=== PATIENT | female | born 1950 ===

== ENCOUNTER 2019-11-27 11:13 | Emergency (ER) | payer OTHER, SELFPAY ==
[2019-11-27 11:19] VITALS: BP 110/65; PULSE 53; RESP 16; TEMP 36.8; O2SAT 100; BMI 40.3
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
== END 2019-11-27 12:33 | disposition home or self-care (01) ==
LOC: HO.ED 12:24
PROVIDERS: Emergency Provider Internal Medicine; PCP Internal Medicine
DX: S13.9XXA Sprain of joints and ligaments of unspecified parts of neck, initial encounter (principal); M54.2 Cervicalgia; M54.5 Low back pain; V43.52XA Car driver injured in collision with other type car in traffic accident, initial encounter; Y93.9 Activity, unspecified; Y92.410 Unspecified street and highway as the place of occurrence of the external cause
CPT/HCPCS: 99283

== ENCOUNTER 2019-12-07 07:12 | Outpatient (REF) | payer OTHER, SELFPAY ==
--- NOTE | 2019-12-07 07:18 | XR_ITS ---
EXAMINATION: XR CERVICAL SPINE CLINICAL INFORMATION: Neck pain. COMPARISON: None TECHNIQUE: 3 views of the cervical spine were obtained. FINDINGS: There is mild straightening of cervical lordosis. There is loss of C4-C5, C5-C6 disc heights with mild posterior cervical spondylosis. The rest of the disc heights, vertebral heights and alignment is normal. No visible acute fracture, dislocation or lytic process seen. IMPRESSION: Mild degenerative disc changes C4-C5 and C5-C6 disc levels.
== END 2019-12-07 07:13 | disposition home or self-care (01) ==
LOC: HO.XRAY 07:12
PROVIDERS: PCP Internal Medicine; Visit Provider Internal Medicine
DX: M54.2 Cervicalgia (principal)
CPT/HCPCS: 72040

== ENCOUNTER 2019-12-25 06:58 | Outpatient (REF) | payer MEDICARE, SELFPAY ==
[2019-12-25 08:31] LABS: Alanine Aminotransferase 18 U/L (0-31); Albumin Level 3.9 g/dL (3.5-5.0); Alkaline Phosphatase 103 U/L (39-117); Aspartate Amino Transferase 17 U/L (5-31); Bilirubin Direct 0.2 mg/dL (0.0-0.5); Bilirubin Total 0.4 mg/dL (0.0-1.0); Cholesterol 199 mg/dL; HDL Cholesterol 55 mg/dL; LDL Cholesterol Calculated 129 mg/dl; Total Protein 7.2 g/dL (6.5-8.0); Triglycerides 77 mg/dL
== END 2019-12-25 06:59 | disposition home or self-care (01) ==
LOC: HO.LAB 06:58
PROVIDERS: Visit Provider Internal Medicine
DX: F34.1 Dysthymic disorder (principal); E78.00 Pure hypercholesterolemia, unspecified; I73.9 Peripheral vascular disease, unspecified; Z85.3 Personal history of malignant neoplasm of breast
CPT/HCPCS: 80061; 80076

== ENCOUNTER 2019-12-29 06:27 | Day surgery (SDC) | payer MEDICARE, SELFPAY ==
[2019-12-23 10:36] VITALS: BMI 41.9
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
[2019-12-29 07:09] VITALS: BP 131/64; PULSE 56; RESP 16; TEMP 36.2; O2SAT 98
[2019-12-29] MEDS: Lactated Ringers 1,000 ML 100 ML IVCONT (07:12)
--- NOTE | 2019-12-29 07:43 | MHC.SHP ---
Pre-Procedural Eval Section B Chief Complaint: POLYPS OF COLON Details of Present Illness: Colon cancer screening no changes clinically since preop Relevant Family History (Specify if Yes): No Relevant Social History: None Present Medications: see Short Stay Collaborative assessment Medical History: Significant History (ARIAS, Obesity, Sickle trait) History of Previous Operations: No relevant previous surgery Allergies: Allergies Allergy/AdvReac Type Severity Reaction Status Date / Time lactose Allergy Intermediate Flatulence Verified 12/23/19 10:44 Review of Systems Sugical H&P ROS: Negative: Constitution, Cardiovascular, Respiratory and Gastrointestinal Exam Surgical H&P Exam: Normal: HEENT, Normal: Heart and Normal: Lungs and Significant Findings: Abdomen (central obesity) Plan Diagnosis/Plan: Unchanged Patient has been examined and remains a candidate for the planned procedure--YES
--- NOTE | 2019-12-29 08:12 | PM.PROC ---
Brief Operative Note Date of procedure: 12/29/19 Pre-op diagnosis: Colon cancer screening Post-op diagnosis: other (Colon polyp diminutive) Procedure: COLONOSCOPY WITH EXCISIONAL POLYPECTOMY Anesthesia: MAC (Andrew RICHTER CRNA) Surgeon: Serena Okeefe Estimated blood loss (mL): 5 Pathology: other (POLYP @ 60 CM) Condition: stable Disposition: PACU
[2019-12-29 08:15] VITALS: BP 90/31; PULSE 58; RESP 20; TEMP 36.2; O2SAT 97
[2019-12-29 08:30] VITALS: BP 122/54; PULSE 66; RESP 20; O2SAT 100
[2019-12-29 08:40] VITALS: BP 126/56; PULSE 52; RESP 20; O2SAT 100
--- NOTE | 2019-12-29 08:55 | HO.POSTANES ---
Post Anesthesia Evaluation Post Anesthesia Evaluation Vital Signs: Vital Signs Temp Pulse Resp BP Pulse Ox 12/29/19 08:40 97.1 F 52 20 126/56 L 100 12/29/19 08:30 66 20 122/54 L 100 12/29/19 08:15 97.1 F 58 20 90/31 L 97 12/29/19 07:09 97.1 F 56 16 131/64 98 Anesthesia: Monitored Mental Status: Awake Pain Control: Satisfactory Nausea/Vomiting: None Hydration: Adequate Anesthesia-Related Issues: No Anes. Related Issues
--- NOTE | 2019-12-29 09:23 | OP_ITS ---
SURGEON: Serena Okeefe MD PREOPERATIVE DIAGNOSIS: Colon cancer screening. POSTOPERATIVE DIAGNOSIS: Colonic polyp, diminutive. PROCEDURE PERFORMED: Colonoscopy with excisional polypectomy using cold biopsy forceps. ESTIMATED BLOOD LOSS: Less than 5 mL. COMPLICATIONS: No complications. ANESTHESIA: Monitored. ANESTHESIOLOGIST: Andrew De Santiago CRNA.Andrew De Santiago CRNA. ASSISTANTS: No dental assistant instructor. SPECIMENS: Specimens removed, polyp 60 cm. GAS WELDER APPRENTICE: Dr. Okeefe. CONDITION: Postop, stable. FINDINGS: Digital rectal exam revealed no significant sphincter tone was adequate. Video colonoscope was introduced without difficulty. It was navigated into the rectosigmoid area. This area was somewhat redundant, slow progress through. Ultimately, the colon opened and the scope was able to traverse to the level of the distal transverse colon. At that point, there was looping redundancy. The scope was brought back to a level of around 60 cm where in I identified a polyp that was removed excisionally with a cold biopsy forceps. Extrinsic abdominal pressure was applied, facilitated movement through transverse, ascending colon down into the cecal cap. Appendiceal orifice was seen. Ileocecal valve was well seen. No mucosal abnormalities were appreciated in this area. Slow withdrawal of scope. Good rotational views. No additional lesions were seen in the region of the rectosigmoid, I changed from CO2 insufflation to air to get better distention in order to slowly withdraw through the suggested area of prolapse in the rectosigmoid. Anorectal verge was clear. PLAN AND CURRENT RECOMMENDATIONS: Repeat asymptomatic screening in this patient will be 5-7 years depending on histology of the polyp. GRAFT OR IMPLANTS: None. Serena Okeefe MD MEN/MODL / [id number]
== END 2019-12-29 09:17 | disposition home or self-care (01) ==
PROVIDERS: PCP Internal Medicine; Visit Provider Internal Medicine Gastroenterology
PROC: 0DJD8ZZ Inspection of Lower Intestinal Tract, Via Natural or Artificial Opening Endoscopic (ICD-10-PCS; CPT 45378; principal; 2019-12-29 07:30)
DX: Z12.11 Encounter for screening for malignant neoplasm of colon (principal); D12.4 Benign neoplasm of descending colon; F32.89 Other specified depressive episodes; G47.30 Sleep apnea, unspecified; M85.80 Other specified disorders of bone density and structure, unspecified site; I73.9 Peripheral vascular disease, unspecified; Z85.3 Personal history of malignant neoplasm of breast; Z92.3 Personal history of irradiation; E73.9 Lactose intolerance, unspecified; Z79.899 Other long term (current) drug therapy
CPT/HCPCS: 45380; 88305; J2370

== ENCOUNTER → 2020-02-03 11:11 | Outpatient (BNVA) | payer MEDICARE, SELFPAY | PROVIDERS: PCP Internal Medicine; Visit Provider Physician Assistant | DX: Z13.89 Encounter for screening for other disorder (principal) | CPT/HCPCS: Q3014 ==

== ENCOUNTER 2020-07-27 07:19 | Emergency (ER) | payer MEDICARE, SELFPAY ==
--- NOTE | ~2020-07-27 | XR_ITS ---
EXAMINATION: XR LUMBOSACRAL SPINE CLINICAL INFORMATION: Fall COMPARISON: Previous x-ray November 2017 TECHNIQUE: Three views of the lumbosacral spine. FINDINGS: Bone alignment is normal. No fracture or dislocation is seen. There is mild disc space narrowing at L2-L3 the L5-S1. There is lower lumbar spine facet arthritis. XR/XR lumbar spine 2-3V IMPRESSION: Degenerative changes. No fracture seen.
--- NOTE | ~2020-07-27 | CT_ITS ---
EXAMINATION: CT BRAIN, CT CERVICAL SPINE AND CT CHEST WITHOUT CONTRAST. CLINICAL INFORMATION: Fall. COMPARISON: None TECHNIQUE: 5 mm thin axial and reformatted 2 mm thin sagittal and coronal images of brain were obtained. Axial 3 mm thin and reformatted 2 mm thin sagittal and coronal images of cervical spine were obtained. Lastly axial 5 mm thin and reformatted 3 mm thin sagittal and coronal images of chest were obtained without contrast. DLP 1962 FINDINGS: BRAIN: There is no acute intra-axial, extra-axial bleed, masses, collection or midline shift. There is no acute infarction in evolution. There is no edema. The lateral ventricles are symmetrical in size and configuration without enlargement. Bone windows reveal no calvarial abnormality. There is no scalp soft tissue abnormality. Bilateral paranasal sinuses and mastoid air cells are well-aerated. CERVICAL SPINE: There is mild straightening of cervical lordosis. The vertebral heights and alignment is normal. There is loss of C5-C6 and C6-C7 disc heights with moderate ventral and posterior spondylosis the craniovertebral junction and the C1-C2 alignment is normal. There is no visible acute fracture, dislocation or subluxation seen. The prevertebral and paravertebral soft tissues are normal. There is left C3-C4, right C4-C5 moderate facet joint arthropathy. No visible acute fracture, dislocation or subluxation seen. The prevertebral and paravertebral soft tissues are normal. The thyroid lobes are symmetrical and unremarkable. Central trachea and the bronchi are widely patent. The lung apices are clear except for a prominent bilateral full and mild apical pleural thickening. CHEST: The lungs are well-expanded and clear of acute pneumonic consolidation. No contusion, mass or pulmonary nodules seen. There is minimal atelectatic changes in both lung bases. There is no pleural effusion or thickening. The heart size and great vessels are normal caliber. There is no pericardial effusion. The central trachea and bronchi are widely patent. No abnormal size mediastinal hilar lymph nodes seen. There is no abnormal axillary lymph nodes or mass or chest wall hematoma. There are small calcifications 1 small shayy along the left anterior chest wall from previous intervention. Correlate clinically. Imaging through the upper abdomen reveals visualized liver, spleen, bilateral adrenal glands, pancreas and gallbladder to be unremarkable. Bone windows reveal no evidence of fracture or bony abnormality. There is mild spondylosis throughout dorsal spine. CT/CT cervical spine wo con IMPRESSION: No acute intracranial process seen. There is no visible acute fracture or dislocation. Mild straightening of cervical lordosis likely spasm. There are degenerative disc changes facet joint arthropathy as described above. There is no lung contusion or consolidation. Minimal atelectatic changes seen in both lung bases. There is mild spondylosis dorsal spine.
[2020-07-27 07:49] VITALS: BP 178/79; PULSE 62; RESP 18; TEMP 36.8; O2SAT 97; BMI 41.1
--- NOTE | 2020-07-27 07:58 | ED.FALL ---
HPI - Fall General Chief Complaint: Fall Stated Complaint: fall, chest, neck pain Time Seen by Provider: 07/27/20 07:58 Source: patient Mode of arrival: ambulatory Limitations: no limitations History of Present Illness MD complaint: fall Onset (ago): minute(s) Fall from: standing and down stairs (#) (10 step by landing) Fall witnessed: no Place fall occurred: home Loss of consciousness: none Prolonged down time: no Symptoms prior to fall: none Context: tripped/slipped Location of injury: neck, chest and back Related Data Home Medications Medication Instructions Recorded Confirmed calcium carbonate-vitamin D3 600 1 tab PO DAILY 12/17/19 02/03/20 mg (1,500 mg)-800 unit tablet cholecalciferol (vitamin D3) 50 50 mcg PO DAILY 12/17/19 02/03/20 mcg (2,000 unit) capsule glucosamine HCl 500 mg tablet 500 mg PO BID 12/17/19 02/03/20 lactase 9,000 unit tablet 9,000 unit PO QID PRN 12/17/19 02/03/20 multivitamin 1 tab PO DAILY 12/17/19 02/03/20 ferrous sulfate 325 mg PO DAILY 12/23/19 02/03/20 Previous Rx's Medication Instructions Recorded ibuprofen 600 mg PO Q8H PRN #30 tab 11/27/19 citalopram 10 mg tablet 10 mg PO DAILY #90 tab 07/04/20 simvastatin 10 mg tablet 10 mg PO BEDTIME #90 tab 07/04/20 cyclobenzaprine 10 mg PO TID PRN #14 tab 07/27/20 ibuprofen 600 mg PO Q6H PRN #30 tab 07/27/20 lidocaine 1 patch TOPICAL DAILY PRN #10 ea 07/27/20 Allergies Allergy/AdvReac Type Severity Reaction Status Date / Time lactose Allergy Intermediate Flatulence Verified 12/23/19 10:44 Review of Systems Review of Systems: Constitutional : No Fever, No Chills ENT/Mouth : No Ear Pain, No Hoarseness, No sore throat, pos neck pain Eyes: No Eye Pain, No Swelling, No Redness, No Foreign Body Cardiovascular : No Chest Pain, No SOB, rib pain Respiratory : No Cough, No Dyspnea Gastrointestinal : No Nausea, No Vomiting, No Diarrhea, No abdominal Pain Genitourinary : No Dysuria, No Hematuria Musculoskeletal : positive joint pain, No Myalgias, No Joint Swelling Skin : No Skin lacerations, No rash Neuro : No Weakness, No Numbness, No Loss of Consciousness, No Dizziness, No Headache Psych : No Anxiety/Panic, No Depression Heme/Lymph: no easy bruising, no Lymphadenopathy Endocrine : No Polyuria, No Polydipsia All other systems reviewed and are negative [facility] Past Medical History Attestation statement: The following information was validated with the patient. Medical History Depression Dysthymia Elevated cholesterol History of breast cancer Hx of cardiac murmur Hx of radiation therapy Hx of sickle cell trait Hypercholesterolemia Incomplete emptying of bladder Lab test negative for COVID-19 virus Obesity Osteopenia Peripheral vascular disease Sleep apnea Tubular adenoma Wrist fracture, right Surgical History H/O breast reconstruction H/O colonoscopy H/O foot surgery History of cataract surgery History of left mastectomy Family History Family History Father Multiple myeloma Mother Hypertension Brain aneurysm Social History Social History Advance Directives: Yes Advance Directives Information Provided: Yes Advance Directives on File: No Physical Exam Vital Signs: Vital Signs: Last Vital Signs Temp 98.3 F 07/27/20 07:49 Pulse 62 07/27/20 07:49 Resp 18 07/27/20 07:49 BP 178/79 H 07/27/20 07:49 Pulse Ox 97 07/27/20 07:49 Body Mass Index 41.1 Appearance: Alert. Oriented X3. No acute distress. Eyes: Pupils equal, round and reactive to light. ENT: Pharynx normal. Neck: ttp in the midline no step offs CVS: Normal heart rate and rhythm. Pulses normal. Chest: ttp along sternum Respiratory: No respiratory distress. Breath sounds normal. Abdomen: Soft and nontender. Back: mild ttp no step offs lumbar spine mid Skin: Skin warm and dry. Normal skin color. Normal skin turgor. Extremities: No lower extremity edema. No calf ttp Neuro: Oriented X 3. No motor deficit. No sensory deficit. Course Course Course Narrative: negative workup no fractures, GCS 15, refrisk negative, NV intact, stable for DC MDM - Fall MDM Narrative Medical decision making narrative: 69 yo female with mechanical fall down 10 steps by landing - no LOC, c/o neck and anterior chest wall pain/lumbar pain, at this time NV intact will need CT head/cspine for pain and mechanism, CT chest for sternum and rib fractures, lumbar plain films, abdomen is soft and benign, dispo per results and findings. Discharge Plan Discharge Clinical Impression: Strain of fascia of lower back Chest wall muscle strain Qualifiers: Encounter type: initial encounter Qualified Code(s): S29.011A - Strain of muscle and tendon of front wall of thorax, initial encounter Acute strain of neck muscle Qualifiers: Encounter type: initial encounter Qualified Code(s): S16.1XXA - Strain of muscle, fascia and tendon at neck level, initial encounter Patient Disposition: Home, Self-Care Instructions: Cervical Strain (ED), Low Back Strain (ED) Additional Instructions: return to ED for any worsening symptoms or concerns Prescriptions: New cyclobenzaprine 10 mg tablet 10 mg PO TID PRN (Reason: muscle spasm) Qty: 14 RF: 0 lidocaine 4 % adhesive patch,medicated 1 patch topical DAILY PRN (Reason: pain) Qty: 10 RF: 0 ibuprofen 600 mg tablet 600 mg PO Q6H PRN (Reason: pain) Qty: 30 RF: 0 No Action citalopram 10 mg tablet 10 mg PO DAILY Qty: 90 RF: 1 simvastatin 10 mg tablet 10 mg PO BEDTIME Qty: 90 RF: 1 ferrous sulfate 325 mg (65 mg iron) Tablet 325 mg PO DAILY RF: 0 ibuprofen 600 mg tablet 600 mg PO Q8H PRN (Reason: pain) Qty: 30 RF: 0 Hold Instructions: Resume on 01/05/20. noASA orNSAIAs for 1 week Lactase Fast Acting 9,000 unit tablet 9,000 unit PO QID PRN (Reason: Gastrointestinal Spasms Or Cramping) RF: 0 multivitamin Tablet 1 tab PO DAILY RF: 0 calcium carbonate-vitamin D3 600 mg(1,500mg) -800 unit tablet 1 tab PO DAILY RF: 0 glucosamine HCl 500 mg tablet 500 mg PO BID RF: 0 Hold Instructions: Resume on 01/05/20. cholecalciferol (vitamin D3) 50 mcg (2,000 unit) capsule 50 mcg PO DAILY RF: 0 Referrals: Po,Ladiver O, MD [Primary Care Provider] - 2 days (if not better) Stand Alone Forms: Work/School Release
[2020-07-27] MEDS: Cyclobenzaprine HCl 10 MG TABLET PO (08:07)
[2020-07-27] MEDS: HYDROcodone Bit/Acetam 5/325 TABLET 1 TAB PO (08:07)
== END 2020-07-27 12:16 | disposition home or self-care (01) ==
PROVIDERS: Emergency Provider Emergency Medicine; PCP Internal Medicine
DX: S39.012A Strain of muscle, fascia and tendon of lower back, initial encounter (principal); S29.011A Strain of muscle and tendon of front wall of thorax, initial encounter; W10.8XXA Fall (on) (from) other stairs and steps, initial encounter; E78.00 Pure hypercholesterolemia, unspecified; Y93.89 Activity, other specified; Y92.9 Unspecified place or not applicable; Y99.9 Unspecified external cause status; Z85.3 Personal history of malignant neoplasm of breast
CPT/HCPCS: 70450; 71250; 72100; 72125; 99284

== ENCOUNTER 2020-12-22 06:30 | Outpatient (REF) | payer MEDICARE, SELFPAY ==
[2020-12-22 06:37] LABS: MANUAL DIFF FLAG NO
[2020-12-22 07:20] LABS: Basophils Percent Auto 0.2 % (0-2); Eosinophils Percent Auto 0.6 % (0-4); Hematocrit 37.2 % (37.0-47.0); Hemoglobin 12.4 g/dl (12.0-16.0); Imm Gran Abs Auto 0.01 X10*3/uL (0.00-0.03); Imm Gran Pct Auto 0.2 % (0.0-0.4); Lymphocytes Absolute Auto 1.1 X10*3/uL (1.2-4.9); Lymphocytes Percent Auto 20.6 % (20-40); Mean Corpuscular HGB Conc 33.3 g/dl (31.0-35.0); Mean Corpuscular Hemoglobin 26.8 pg (27.0-33.0); Mean Corpuscular Volume 80.5 fL (80.0-98.0); Monocytes Absolute Auto 0.5 X10*3/uL (0.1-1.2); Neutrophils Absolute Auto 3.72 x10*3/uL (2.0-8.3); Neutrophils Percent Auto 69.4 % (45-73); Platelet Count 290 X10*3/uL (160-400); Red Blood Count 4.62 X10*6/uL (4.20-5.50); Red Cell Distribution Width 14.6 % (11.0-16.0); White Blood Count 5.4 X10*3/uL (4.8-10.8)
[2020-12-22 07:52] LABS: Alanine Aminotransferase 11 U/L (0-31); Albumin Level 3.8 g/dL (3.5-5.0); Alkaline Phosphatase 92 U/L (39-117); Anion Gap 12 (12-20); Aspartate Amino Transferase 15 U/L (5-31); Bilirubin Total 0.4 mg/dL (0.0-1.0); Blood Urea Nitrogen 11 mg/dL (9-16); Carbon Dioxide 24 mmol/L (22-29); Chloride 103 mmol/L (96-108); Cholesterol 199 mg/dL; Estimated Glomerular Filt Rate 60; Glucose Random 102 mg/dL (60-115); HDL Cholesterol 53 mg/dL; LDL Cholesterol Calculated 132 mg/dl; Potassium 3.8 mmol/L (3.3-5.1); Sodium 135 mmol/L (135-145); Total Protein 7.4 g/dL (6.5-8.0); Triglycerides 74 mg/dL
[2020-12-22 08:15] LABS: Free T4 (Free Thyroxine) 0.84 ng/dL (0.71-1.85); Thyroid Stimulating Hormone 1.24 uIU/mL (0.32-4.0); Vitamin D 25-OH Total 41.3 ng/mL (>30)
[2020-12-22 08:44] LABS: Folate 17.2 ng/mL (> or = 4.0); Vitamin B12 457 pg/mL (200-900)
== END 2020-12-22 06:31 | disposition home or self-care (01) ==
LOC: HO.LAB 06:30
PROVIDERS: PCP Internal Medicine; Visit Provider Internal Medicine
DX: E78.00 Pure hypercholesterolemia, unspecified (principal)
CPT/HCPCS: 36415; 80053; 80061; 82306; 82607; 82746; 84439; 84443; 85025

== ENCOUNTER 2021-02-07 09:00 | Outpatient (RCR) | payer MEDICARE, SELFPAY ==
--- NOTE | 2021-03-24 09:44 | MHC.PT.DC ---
[facility] [place] Office [place] [facility] [place] Office [address] James Bernal [address] [phone] F: [phone] F: [phone] F: [phone] F: [phone] Physical Therapy Discharge Report Diagnosis: LOW BACK PAIN,CERVICALGIA Date of Surgery: DOI July 2020 Date of Evaluation: 01/02/21 Date of Discharge: 03/24/21 Treatments to Date: 7 Cancellations to Date: No Shows to Date: Discharge Status: Independent with HEP Patient Elected to Stop Discharge Summary: Pt LAST SEEN ON 02/07/21. PER ASSESSMENT BY HOLLI IBARRA HAMMER FITTER :'PROGRESSING WITH EXERCISE PROGRAM, good form today. Improved posture awareness noted.' Pt THEN CANCELLED HER LAST APPT ON 02/09/21 WITHOUT FURTHER SCHEDULING Electronically signed by: LUPE BRADLEY PT Please sign and return to therapist. Thank you for your referral.
== END 2021-03-24 09:44 | disposition home or self-care (01) ==
LOC: HO.PT 09:00
PROVIDERS: PCP Internal Medicine; Visit Provider Internal Medicine
DX: M54.50 Low back pain, unspecified (principal); M54.2 Cervicalgia; W19.XXXD Unspecified fall, subsequent encounter
CPT/HCPCS: 97110; 97140; 97161; 97535

== ENCOUNTER 2021-03-31 06:28 | Outpatient (REF) | payer MEDICARE, SELFPAY ==
[2021-03-31 07:34] LABS: Estimated Average Glucose 120 mg/dL; Hemoglobin A1c % 5.8 %
[2021-03-31 07:47] LABS: Alanine Aminotransferase 13 U/L (0-31); Albumin Level 3.9 g/dL (3.5-5.0); Alkaline Phosphatase 94 U/L (39-117); Anion Gap 10 (12-20); Aspartate Amino Transferase 15 U/L (5-31); Bilirubin Total 0.6 mg/dL (0.0-1.0); Blood Urea Nitrogen 14 mg/dL (9-16); Calcium 9.6 mg/dL (8.4-10.2); Carbon Dioxide 29 mmol/L (22-29); Chloride 103 mmol/L (96-108); Cholesterol 185 mg/dL; Estimated Glomerular Filt Rate > 60; Glucose Random 92 mg/dL (60-115); HDL Cholesterol 47 mg/dL; LDL Cholesterol Calculated 122 mg/dl; Potassium 4.3 mmol/L (3.3-5.1); Sodium 138 mmol/L (135-145); Total Protein 7.4 g/dL (6.5-8.0); Triglycerides 81 mg/dL
[2021-03-31 08:08] LABS: Thyroid Stimulating Hormone 2.34 uIU/mL (0.32-4.0)
== END 2021-03-31 06:29 | disposition home or self-care (01) ==
LOC: HO.LAB 06:28
PROVIDERS: PCP Internal Medicine; Visit Provider Internal Medicine
DX: E78.00 Pure hypercholesterolemia, unspecified (principal)
CPT/HCPCS: 36415; 80053; 80061; 83036; 84443

== ENCOUNTER 2021-05-19 12:01 | Outpatient (REF) | payer MEDICARE, SELFPAY ==
[2021-05-19 12:42] LABS: COVID-19 Test Negative (Negative)
== END 2021-05-19 12:02 | disposition home or self-care (01) ==
LOC: HO.LAB 12:01
PROVIDERS: Visit Provider Internal Medicine
DX: Z20.822 Contact with and (suspected) exposure to COVID-19 (principal)
CPT/HCPCS: 87635; C9803

== ENCOUNTER → 2021-06-06 14:36 | Outpatient (BNVA) | payer MEDICARE, SELFPAY | PROVIDERS: PCP Internal Medicine; Visit Provider Urology | DX: N31.9 Neuromuscular dysfunction of bladder, unspecified (principal); R33.9 Retention of urine, unspecified | CPT/HCPCS: 51798; 99212 ==

== ENCOUNTER → 2021-08-17 10:54 | Outpatient (BNVA) | payer MEDICARE, SELFPAY | PROVIDERS: PCP Internal Medicine; Visit Provider Urology | DX: R33.9 Retention of urine, unspecified (principal) | CPT/HCPCS: Q3014 ==

== ENCOUNTER 2021-09-28 14:05 | Outpatient (REF) | payer MEDICARE, SELFPAY ==
--- NOTE | ~2021-09-28 | CT_ITS ---
EXAMINATION: CT HEAD WITHOUT CONTRAST CLINICAL INFORMATION: Fall. COMPARISON: None. TECHNIQUE: Contiguous axial imaging was performed from the skull base to vertex without intravenous administration of contrast. This CT examination was performed using dose optimization techniques as appropriate, variously including the following: *Automated exposure control *Adjustment of mA and/or kV according to patient size (this includes techniques or standardized protocols for targeted exams where dose is matched to indication/reason for exam; i.e. extremities or head) *Use of iterative reconstruction technique DLP: 943 mGy-cm FINDINGS: There is no evidence of acute intracranial hemorrhage or territorial infarction. No abnormal mass effect or midline shift is seen. Mccoy to white matter differentiation is well preserved. No extra-axial fluid collections are identified. The ventricles are normal in size. There is no abnormal attenuation within the brain parenchyma. The osseous structures and soft tissues are normal. The mastoid air cells and visualized portions of the paranasal sinuses are well aerated. CT/CT head/brain wo con IMPRESSION: No acute intracranial process is seen.
== END 2021-09-28 14:06 | disposition home or self-care (01) ==
LOC: HO.CT 14:05
PROVIDERS: Visit Provider Nurse Practitioner Family
DX: R22.0 Localized swelling, mass and lump, head (principal); W19.XXXA Unspecified fall, initial encounter
CPT/HCPCS: 70450

== ENCOUNTER 2021-10-02 06:25 | Outpatient (REF) | payer MEDICARE, SELFPAY ==
[2021-10-02 08:53] LABS: Anion Gap 16 (12-20); Blood Urea Nitrogen 12 mg/dL (9-16); Calcium 8.8 mg/dL (8.4-10.2); Carbon Dioxide 24 mmol/L (22-29); Chloride 103 mmol/L (96-108); Estimated Glomerular Filt Rate > 60; Glucose Fasting 85 mg/dL (60-99); Potassium 4.5 mmol/L (3.3-5.1); Sodium 138 mmol/L (135-145)
== END 2021-10-02 06:26 | disposition home or self-care (01) ==
LOC: HO.LAB 06:25
PROVIDERS: PCP Internal Medicine; Visit Provider Nurse Practitioner Family
DX: R73.02 Impaired glucose tolerance (oral) (principal)
CPT/HCPCS: 36415; 80048

== ENCOUNTER → 2021-10-03 15:34 | Outpatient (REF) | payer MEDICARE, SELFPAY ==
--- NOTE | 2021-10-03 15:39 | ECG_ITS ---
Test Reason : syncope Blood Pressure : / mmHG Vent. Rate : 052 BPM Atrial Rate : 052 BPM P-R Int : 156 ms QRS Dur : 080 ms QT Int : 422 ms P-R-T Axes : 045 003 055 degrees QTc Int : 392 ms Sinus bradycardia Otherwise normal ECG When compared with ECG of 29-AUG-2017 15:47, No significant change was found Referred By: Alejandrina Trevizo Electronically Signed By:GODWNI MERCHANT
== END ==
LOC: HO.CARD 15:34
PROVIDERS: PCP Nurse Practitioner Family; Visit Provider Nurse Practitioner Family
DX: R29.6 Repeated falls (principal)
CPT/HCPCS: 93005

== ENCOUNTER 2021-10-04 09:09 | Outpatient (REF) | payer MEDICARE, SELFPAY ==
--- NOTE | ~2021-10-04 | MM_ITS ---
EXAMINATION: BONE DENSITOMETRY CLINICAL INDICATION: Menopause. COMPARISON: Previous BD dated 05/27/2015 and baseline BD dated 01/08/2008. TECHNIQUE: Using a [employer]! DXA System (software version: 13.1) manufactured by [employer], dual-energy x-ray absorptiometry was performed of the lumbar spine and left hip. The images are of good technical quality. Summary results are attached. FINDINGS: AP SPINE L1-L4: Current: BMD 1.324 g/cm2, Z-score 1.0, T-score 1.2, normal, 6.9% increase from previous, 7.4% increase from baseline (<5% change is not significant). Prior: BMD 1.238 g/cm2. Baseline: BMD 1.233 g/cm2. LEFT FEMUR, NECK: Current: BMD 0.961 g/cm2, Z-score -0.6, T-score -0.6, normal. Prior: BMD 1.002 g/cm2. Baseline: BMD 1.093 g/cm2. LEFT FEMUR, TOTAL: Current: BMD 0.988 g/cm2, Z-score -0.6, T-score -0.2, normal, 0.8% increase from previous, 8.9% decrease from baseline (<5% change is not significant). Prior: BMD 0.980 g/cm2. Baseline: BMD 1.084 g/cm2. IDENTIFIED RISK FACTORS: Menopause, recurrent falls. HISTORY OF FRACTURE: None listed. MEDICATIONS: Vitamin D. MM/XR DEXA axial skeleton IMPRESSION: 1. DIAGNOSIS: Normal bone density based on the lowest T-score value of -0.6 in the femoral neck applying World Health Organization criteria. 2. 10-YEAR FRACTURE RISK PREDICTION, FRAX: Major osteoporotic fracture (clinical spine, forearm, hip or shoulder) 3.0%. Hip fracture 0.2%. 3. Treatment Recommendations: NOF guidelines recommend consideration for treatment in postmenopausal women and men age 50 and older presenting with the following: -A hip or vertebral (clinical or morphometric) fracture. -T-score less than or equal to -2.5 at the femoral neck or spine after appropriate evaluation to exclude secondary causes. -Low bone mass at the hip or spine and a 10-year fracture probability by FRAX of greater than or equal to 3% for hip fracture or greater than or equal to 20% for major osteoporotic fracture based on the [place] adapted WHO algorithm. 4. Other Recommendations: All treatment decisions require clinical judgment and consideration of individual patient factors, including patient preferences, comorbidities, previous drug use, risk factors not captured in the FRAX model (e.g. frailty, falls, vitamin D deficiency, increased bone turnover, interval significant decline in bone density) and possible under or overestimation of fracture risk by FRAX. FUTURE SCAN RECOMMENDATION: People with diagnosed cases of osteoporosis or at high risk for fracture should have regular bone mineral density tests. For patients eligible for Medicare, routine testing is allowed once every 2 years. The testing frequency can be increased to one year for patients who have rapidly progressing disease, those who are receiving or discontinuing medical therapy to restore bone mass, or have additional risk factors.
== END 2021-10-04 09:10 | disposition home or self-care (01) ==
LOC: HO.MAMMO 09:09
PROVIDERS: Visit Provider Nurse Practitioner Family
DX: Z13.820 Encounter for screening for osteoporosis (principal); Z78.0 Asymptomatic menopausal state
CPT/HCPCS: 77080

== ENCOUNTER 2021-10-17 10:11 | Outpatient (REF) | payer MEDICARE, SELFPAY ==
[2021-10-17 10:54] LABS: MANUAL DIFF FLAG NO
[2021-10-17 11:17] LABS: Basophils Percent Auto 0.4 % (0-2); Eosinophils Absolute Auto 0.1 X10*3/uL (0.0-0.4); Eosinophils Percent Auto 1.1 % (0-4); Hematocrit 37.5 % (37.0-47.0); Hemoglobin 12.3 g/dl (12.0-16.0); Imm Gran Abs Auto 0.02 X10*3/uL (0.00-0.03); Imm Gran Pct Auto 0.4 % (0.0-0.4); Lymphocytes Absolute Auto 1.3 X10*3/uL (1.2-4.9); Lymphocytes Percent Auto 22.5 % (20-40); Mean Corpuscular HGB Conc 32.8 g/dl (31.0-35.0); Mean Corpuscular Hemoglobin 26.7 pg (27.0-33.0); Mean Corpuscular Volume 81.5 fL (80.0-98.0); Mean Platelet Volume 10.6 fL (9.4-12.3); Monocytes Absolute Auto 0.4 X10*3/uL (0.1-1.2); Monocytes Percent Auto 7.5 % (2-11); Neutrophils Absolute Auto 3.8 x10*3/uL (2.0-8.3); Neutrophils Percent Auto 68.1 % (45-73); Platelet Count 315 X10*3/uL (160-400); Red Cell Distribution Width 14.1 % (11.0-16.0); White Blood Count 5.6 X10*3/uL (4.8-10.8)
[2021-10-17 12:41] LABS: Free T4 (Free Thyroxine) 0.85 ng/dL (0.71-1.85); Thyroid Stimulating Hormone 1.68 uIU/mL (0.32-4.0)
== END 2021-10-17 10:12 | disposition home or self-care (01) ==
LOC: HO.LAB 10:11
PROVIDERS: PCP Internal Medicine; Visit Provider Internal Medicine
DX: R55 Syncope and collapse (principal)
CPT/HCPCS: 36415; 84439; 84443; 85025

== ENCOUNTER 2021-10-18 14:19 | Outpatient (REF) | payer MEDICARE, SELFPAY ==
[2021-10-18 14:31] LABS: Appearance Urine Cloudy; Color Urine Yellow; Glucose Urine UA Negative (Negative); Leukocyte Esterase Urine Large (3+) (Negative); Nitrite Urine Positive (Negative); Urine Blood Negative (Negative); Urine Ketones Negative (Negative); Urine Protein Negative (Neg-Trace)
[2021-10-18 14:54] LABS: Bacteria Urine 4+ (None Seen); Hyaline Casts Urine 0-2 /LPF (0-2); RBC Urine 0-2 /HPF (0-2); UACC Culture Trigger YES; WBC Urine >50 /HPF (0-5)
== END 2021-10-18 14:20 | disposition home or self-care (01) ==
LOC: HO.LNP 14:19
PROVIDERS: Visit Provider Internal Medicine
DX: R55 Syncope and collapse (principal)
CPT/HCPCS: 81001; 87086; 87088; 87186

== ENCOUNTER 2021-11-16 07:48 | Outpatient (REF) | payer MEDICARE, SELFPAY ==
[2021-11-16 09:47] LABS: Appearance Urine Clear; Color Urine Yellow; Glucose Urine UA Negative (Negative); Leukocyte Esterase Urine Small (1+) (Negative); Nitrite Urine Negative (Negative); UMIC TRIGGER UA YES; Urine Blood Negative (Negative); Urine Ketones Negative (Negative); Urine Protein Negative (Neg-Trace)
[2021-11-16 09:50] LABS: Bacteria Urine None Seen (None Seen); Hyaline Casts Urine 0-2 /LPF (0-2); RBC Urine 0-2 /HPF (0-2); Squamous Epithelial Cell Urine 0-2 /HPF (0-2)
== END 2021-11-16 07:49 | disposition home or self-care (01) ==
LOC: HO.LAB 07:48
PROVIDERS: PCP Internal Medicine; Visit Provider Internal Medicine
DX: R55 Syncope and collapse (principal)
CPT/HCPCS: 81001

== ENCOUNTER → 2021-11-17 07:29 | Outpatient (REF) | payer MEDICARE, SELFPAY ==
--- NOTE | 2021-11-17 07:35 | HM_ITS ---
* Total monitoring time 3 days and 2 hours. * Underlying rhythm is sinus. Average rate 53/Min. Range 41 to 79/Min. * About 80% the time, rate less than 60/Min. * Rare supraventricular and ventricular ectopy. * No sustained arrhythmias or pauses * Symptoms in patient diary associated with sinus bradycardia, artifact. MTDD
--- NOTE | 2021-11-17 07:35 | CA_ITS ---
Transthoracic Echocardiogram Patient (Last, First, Middle): Marcella Pinzon, Gender: Female Date of : 1950 Age: 71 Procedure Date: 11/17/2021 Procedure Type: Transthoracic Echocardiogram Location: OP Height: 167.64 cm Weight: 117.94 kg BSA: 2.24 m2 Heart Rate: 45 bpm BP: 120 / 80 mmHg Newspaper Carrier: TO Referring MD: Elidia Chadwick MD Symptoms: R55 - Syncope and collapse Study Quality: Fair Conclusions: - Normal left ventricular size and systolic function. There is mildly increased left ventricular wall thickness. The visually estimated ejection fraction is between 60-65%. There is no evidence of regional wall motion abnormalities. Diastolic function is normal for age. - Mildly increased right ventricular cavity size. There is normal right ventricular systolic function. - There is no evidence of pulmonary hypertension. - There is no evidence of pericardial effusion. Findings Left Ventricle Normal left ventricular size and systolic function. There is mildly increased left ventricular wall thickness. The visually estimated ejection fraction is between 60-65%. There is no evidence of regional wall motion abnormalities. Diastolic function is normal for age. Right Ventricle Mildly increased right ventricular cavity size. There is normal right ventricular systolic function. Atria The left atrium is normal in size. The right atrium is normal in size. Aortic Valve Normal aortic valve structure and function. There is no aortic valve stenosis. There is no aortic valve regurgitation. Mitral Valve The mitral valve appears normal. There is no mitral valve regurgitation. There is no mitral valve stenosis. Pulmonic Valve Normal pulmonic valve structure and function. There is no pulmonic valve regurgitation. Tricuspid Valve Normal tricuspid valve structure and function. There is trace tricuspid valve regurgitation. Normal right atrial pressure. There is no evidence of pulmonary hypertension. Great Vessels All visible segments of the aorta are normal in size. The visualized portions of the pulmonary artery and branches are normal. Venous The inferior vena cava is normal in size and collapses greater than 50% with inspiration. Pericardium/Pleural There is no evidence of pericardial effusion. Prior Study Comparison No prior study available for comparison. Measurements 2D Linear Measurements IVSd: 1.13 0.6-0.9/0.6-1.0 cm LVIDd: 4.36 3.9-5.3/4.2-5.9 cm LVIDd Index: 1.95 2.4-3.2/2.2-3.1 cm/m2 LVIDs: 2.48 2.0-3.6 cm LVPWd: 1.13 0.7-1.1 cm LA Diam: 4.10 2.7-3.8/3.0-4.0 cm LAIDs Index: 1.83 1.5-2.3 cm/m2 LV Mass: 215.53 67-162/88-224 g LV Mass Index: 96.22 43-95/49-115 g/m2 LVOT Diam: 2.00 3.0+(-)1.3 cm 2D Systolic Function EF 4C: 59.20 >55% EF 2C: 66.60 >55% EF BiP: 62.90 >55% Mitral Valve MV Pk E: 1.03 MV PK A: 0.81 MV Decel Time: 216.00 E/A: 1.30 E'Lateral: 9.25 E'Medial: 10.10 E/E' Med: 10.20 E/E' Lat: 11.10 PHT: 63.00 MVA PHT: 3.49 Decel Kenton: 4.75 Aortic Valve AoV Pk Hector: 1.90 AoV Mn Hector: 1.21 AoV VTI: 0.46 AoV Pk Grad: 14.00 Aov Mn Grad: 7.00 PAULINO Cont.VTI: 1.91 LVOT LVOT Pk Hector: 1.08 LVOT Mn Hector: 0.65 LVOT VTI: 0.28 LVOT Pk Grad: 5.00 LVOT Mn Grad: 2.00 LVOT Diam: 2.00 LVOT Area: 3.14 Diastolic Function MV Pk E: 1.03 MV Pk A: 0.81 E/A: 1.30 E'Medial: 10.10 E/E' Med: 10.20 E' Laterial: 9.25 E/E' Lat: 11.10 Right Ventricle TAPSE (mm): 26.10 TVS' Hector: 15.70 Tricuspid Valve TR Pk Hector: 2.66 TR Pk Grad: 28.00 RA Press: 3.00 RVSP: 31.00 Great Vessels Aorta Sinus of Valsalva: 2.92 2.0-3.5 cm Ao Asc: 3.40 2.1-3.4 cm Updated in Other Vendor System with Status of Final Emir Vanegas MD electronically signed on 11/19/2021 1:46:30 PM with status of Final
== END ==
LOC: HO.CARD 07:29
PROVIDERS: PCP Internal Medicine; Visit Provider Internal Medicine
DX: R55 Syncope and collapse (principal)
CPT/HCPCS: 93242; 93306

== ENCOUNTER → 2022-02-15 09:36 | Outpatient (BNVA) | payer MEDICARE, SELFPAY | PROVIDERS: PCP Internal Medicine; Visit Provider Urology | DX: R33.9 Retention of urine, unspecified (principal) | CPT/HCPCS: 51798; 99212 ==

== ENCOUNTER 2022-04-30 09:11 | Outpatient (REF) | payer MEDICARE, SELFPAY ==
[2022-04-30 09:22] LABS: MANUAL DIFF FLAG NO
[2022-04-30 09:54] LABS: Basophils Percent Auto 0.4 % (0-2); Eosinophils Absolute Auto 0.1 X10*3/uL (0.0-0.4); Eosinophils Percent Auto 1.8 % (0-4); Hematocrit 39.3 % (37.0-47.0); Hemoglobin 12.8 g/dl (12.0-16.0); Lymphocytes Absolute Auto 1.4 X10*3/uL (1.2-4.9); Lymphocytes Percent Auto 25.5 % (20-40); Mean Corpuscular HGB Conc 32.6 g/dl (31.0-35.0); Mean Corpuscular Hemoglobin 26.9 pg (27.0-33.0); Mean Corpuscular Volume 82.6 fL (80.0-98.0); Monocytes Absolute Auto 0.6 X10*3/uL (0.1-1.2); Monocytes Percent Auto 10.6 % (2-11); Neutrophils Absolute Auto 3.4 x10*3/uL (2.0-8.3); Neutrophils Percent Auto 61.7 % (45-73); Platelet Count 356 X10*3/uL (160-400); Red Blood Count 4.76 X10*6/uL (4.20-5.50); Red Cell Distribution Width 13.4 % (11.0-16.0); White Blood Count 5.6 X10*3/uL (4.8-10.8)
[2022-04-30 11:57] LABS: Alanine Aminotransferase 15 U/L (0-31); Albumin Level 3.7 g/dL (3.5-5.0); Alkaline Phosphatase 78 U/L (39-117); Anion Gap 11 (12-20); Aspartate Amino Transferase 18 U/L (5-31); Bilirubin Total 0.4 mg/dL (0.0-1.0); Blood Urea Nitrogen 15 mg/dL (9-16); Calcium 8.9 mg/dL (8.4-10.2); Carbon Dioxide 25 mmol/L (22-29); Chloride 106 mmol/L (96-108); Cholesterol 180 mg/dL; Estimated Glomerular Filt Rate > 60; Glucose Random 85 mg/dL (60-115); HDL Cholesterol 45 mg/dL; LDL Cholesterol Calculated 122 mg/dl; Potassium 4.4 mmol/L (3.3-5.1); Sodium 138 mmol/L (135-145); Total Protein 7.1 g/dL (6.5-8.0); Triglycerides 69 mg/dL
[2022-04-30 12:10] LABS: Folate 13.1 ng/mL (> or = 4.0); Free T4 (Free Thyroxine) 0.81 ng/dL (0.71-1.85); Thyroid Stimulating Hormone 2.08 uIU/mL (0.32-4.0); Vitamin B12 737 pg/mL (200-900); Vitamin D 25-OH Total 43.8 ng/mL (>30)
== END 2022-04-30 09:12 | disposition home or self-care (01) ==
LOC: HO.LAB 09:11
PROVIDERS: PCP Internal Medicine; Visit Provider Internal Medicine
DX: E78.00 Pure hypercholesterolemia, unspecified (principal); E55.9 Vitamin D deficiency, unspecified
CPT/HCPCS: 36415; 80053; 80061; 82306; 82607; 82746; 84439; 84443; 85025

== ENCOUNTER 2022-05-21 14:00 | Outpatient (RCR) | payer MEDICARE, SELFPAY ==
--- NOTE | 2022-04-11 12:43 | MHC.PT.EP ---
[facility] [place] Office [place] Office [place] Office [address] James Bernal [address] [phone] F: [phone] F: [phone] F: [phone] F: [phone] Physical Therapy Plan of Care Date of Evaluation: Date of Surgery: Diagnosis: HISTORY OF FALLING/ BALANCE TRAINING Assessment: 71 YO FEMALE REF TO PT FOR Rt KNEE PAIN AND SXS/ WEAKNESS CREATING DYNAMIC BALANCE DEFICITS- SHE NOTES IN NOV 2021 SHE WAS DX W A SEIZURE DISORDER POST A SYNCOPAL EPISODE. Pt HAS DECR AROM JUSTIN ANKLES, Rt KNEE, Rt HIP- (+) PERIPATELLAR IRRIT/ PES ANSERINE DISCOMFORT, (+) PF LATERAL DRIFT, STRENGTH DEFICITS IN LUMBOPELVIC/ PROX LEs, AND INTERMITTENT PAIN IN Rt KNEE. FUNCTIONALLY, Pt IS CHALLENGED W STAIR MGMT, PROLONGED STANDING/ WALKING, OR MORE PHYSICALLY DEMANDING ADLs. SHE WOULD BENEFIT FROM PT TO ADDRESS PAIN MGMT, STRENGTHENING, TRUNK/LEs MECHANICS, SOFT TISSUE EASING/MGMT, AND DEV A PROGRESSIVE HEP. Frequency and Duration: The patient will be seen 2 x WK x 6 WKS Short Term Goals: *Pt WILL DEMON EFFICIENT GAIT MECHANICS ON LEVEL GROUND AND STAIRS WELL PROPER TRANSFERS *Pt'S RIGHT KNEE PAIN WILL DECR TO 2-3/10 [facility] Goals: *Pt WILL IMPROVE LUMBOPELVIC/ Lt LE STRENGTH TO AT LEAST 5-/5 *Pt INDEP HEP AND SELF SX MGMT *Pt DEMON IMPROVED FUNCT MOB/ GAIT MECH EVIDENT W IMPROVED LEFI SCORE (49/80) Treatment Plan: Modalities to reduce pain, spasms and effusion. Manual therapy to restore motion and function. Therapeutic exercise to improve strength and flexibility. Neuromuscular re-education for posture and balance. Therapeutic activities to return to functional activities of daily living. Electronically signed by: ADRIENNE CABELLO PT Please sign and return to therapist. Thank you for your referral.
--- NOTE | 2022-06-15 15:03 | MHC.PT.DC ---
[facility] [place] Office [place] Office [place] Office [address] James Bernal [address] [phone] F: [phone] F: [phone] F: [phone] F: [phone] Physical Therapy Discharge Report Diagnosis: HISTORY OF FALLING/ BALANCE TRAINING Date of Surgery: Date of Evaluation: 04/11/22 Date of Discharge: 06/15/22 Treatments to Date: 10 Cancellations to Date: 5 No Shows to Date: 1 Discharge Status: Improved Function Independent with HEP Discharge Summary: Pt PROGRESSED NICELY IN PT- SHE HAS A SOLID HEP AND AT LAST ATTENDED PT APPT, HER PAIN WAS RELATIVELY RESOLVED- A FORMAL RE-ASSESSMENT WAS NOT PERF DUE TO POOR ATTENDANCE FOR LAST FEW SCHED APPTS. Electronically signed by: SILVA CABELLO, PT Please sign and return to therapist. Thank you for your referral.
== END 2022-06-15 15:04 | disposition home or self-care (01) ==
LOC: HO.PT 14:00
PROVIDERS: PCP Internal Medicine; Visit Provider Internal Medicine
DX: Z91.81 History of falling (principal)
CPT/HCPCS: 97110; 97162

== ENCOUNTER → 2022-08-17 09:47 | Outpatient (BNVA) | payer MEDICARE, SELFPAY | PROVIDERS: Visit Provider Nurse Practitioner Family | DX: R33.9 Retention of urine, unspecified (principal) | CPT/HCPCS: 51798; 99212 ==

== ENCOUNTER 2022-10-02 10:57 | Outpatient (AMB) | payer MEDICARE, SELFPAY ==
--- NOTE | 2022-10-02 10:59 | A.OFFVIS_ITS ---
Intake Vital Signs 10/02/22 11:02 Height 5 ft 6 in BMI Reason not done Patient refused/unable BP 130/70 Blood Pressure Location Rt brachial Position Sitting Pulse 68 Pulse Source Pulse Oximeter Pulse Oximetry (%) 96 Oxygen Delivery Method Room Air Intake Visit Reasons: AWV Allergies lactose Allergy (Intermediate, Verified 10/02/22 10:59) Flatulence HPI HPI Comments History of Present Illness Details 71-year-old female past medical history significant for impaired glucose tolerance, hypercholesteremia, PVD, mild sleep apnea no CPAP required. Patient of Dr. Chadwick, patient presents today for subsequent follow-up visit. Mammogram: January 2022, Completed [facility] in [place]. Colonoscopy: 12/29/19; showed tubular adenoma recommended 5 year follow up. Bone density: 10/04/2021 Eye exam: Oct 2021. pap: appointment set up with obgyn at [facility] Patient states has Second opinion with [facility], Kev Escobar for neurologist, patient advised to have office note sent to pcp. HCP and MOLST forms on file. Critical care was reviewed with patient patient was provided with written screening schedule. [facility] Medical History Depression Dysthymia Elevated cholesterol History of breast cancer Hx of cardiac murmur Hx of radiation therapy Hx of sickle cell trait Hypercholesterolemia Incomplete emptying of bladder Lab test negative for COVID-19 virus Obesity Osteopenia Peripheral vascular disease Sleep apnea Tubular adenoma Wrist fracture, right Surgical History H/O breast reconstruction H/O colonoscopy H/O foot surgery History of cataract surgery History of left mastectomy Family History Father Multiple myeloma Mother Hypertension Brain aneurysm Social History Housing: House Alcohol intake: never Patient Tobacco Use Status: Never used Tobacco e-Cigarette/Vaping Use: Never Used Second Hand Smoke Exposure: No service: No Current occupational status: employed Current occupational exposures/hazards: No Cognitive needs: No Hearing needs: No Vision needs: Yes Questionnaire Medicare Wellness Checkup What [age]?: [age] What gender do you identify with?: female During the past 4 weeks, how much have you been bothered by emotional problems such as feeling anxious, depressed, irritable, sad or downhearted, and blue?: moderately During the past 4 weeks, has your physical & emotional health limited your social activities with family, friends, neighbors, or groups?: moderately During the past 4 weeks, how much bodily pain have you generally had?: very mild pain During the past 4 weeks, was someone available to help you if you needed & wanted help?: yes, as much as I wanted During the past 4 weeks, what was the hardest physical activity you could do for at least 2 minutes?: moderate Can you get to places out of walking distance without help? (For eg., can you travel alone on buses, taxis or drive your car?): Yes Can you go shopping for groceries or clothes without someone's help?: Yes Can you prepare your own meals?: Yes Can you do your housework without help?: Yes Because of any health problems, do you need the help of another person with your personal care needs such as eating, bathing, dressing or getting around the house?: No Can you handle your own money without help?: Yes During the past 4 weeks, how would you rate your health in general?: good During the past 4 weeks how have things been going for you?: good & bad parts about equal Are you having difficulties driving your car?: no Do you always fasten your seat belt when you are in a car?: yes, usually During past 4 weeks, have you been bothered by the following: never: Falling or dizzy when standing up, Sexual problems?, Teeth or denture problems? and Problems using the telephone? and seldom: Trouble eating well? and Tiredness or fatigue? Have you fallen 2 or more times in the past year?: No Are you afraid of falling?: Yes Are you a smoker?: no During the past 4 weeks, how many drinks of wine, beer, or other alcoholic beverages did you have?: no alcohol at all Do you exercise for about 20 minutes 3 or more times a week?: no, I usually do not exercise this much Have you been given information to help with the following?: yes: Hazards in your house that might hurt you? and yes: Keeping track of your medications? How often do you have trouble taking medicines the way you have been told to take them?: I always take medicine as prescribed How confident are you that you can control & manage most of your health problems?: very confident What is your race?: Black or Mini Mental State Exam (MMSE) Orientation What is the (year) (season) (date) (day) (month)?: year, season, date, day and month Score Score: 5 Activity of Daily Living Bathing - sponge bath, tub bath or shower: receives no assistance (gets in/out by self, if usual bathing means Dressing - getting clothes from closets & drawers, including inner/outer garments & fasteners.: gets clothes & gets completely dressed without help Toileting - going to the 'toilet room' for urine/bowel elimination & cleaning self/arranging clothes: goes to toilet room, cleans self, arranges clothes without help Transfer: moves in & out of bed and chair without help (may use support object) Continence: controls urination/bowel movements completely by self Feeding: feeds self without help Total Score: 0 Information obtained from: patient Using telephone: independent Traveling: independent Shopping: independent Preparing meals: independent Housework: independent Taking medicine: independent Managing money: independent PHQ-9 Over the last 2 weeks, how often have you been bothered by any of the following problems? 1. Little interest or pleasure in doing things: several days 2. Feeling down, depressed, or hopeless: several days 3. Trouble falling or staying asleep, or sleeping too much: more than half the days 4. Feeling tired or having little energy: not at all 5. Poor appetite or overeating: more than half the days 6. Feeling bad about yourself - or that you are a failure or have let yourself o r your family down: more than half the days 7. Trouble concentrating on things, such as reading the newspaper or watching television: not at all 8. Moving or speaking so slowly that other people could have noticed. Or the opposite - being so fidgety or restless that you have been moving around a lot more than usual: not at all 9. Thoughts that you would be better off or of hurting yourself in some way: not at all Total score: 8 [id number] - PHQ-9 Billing: Yes Source: Developed by Drs. Tong Garcia, Sayda Moran, Rudy Lopez and colleagues, with an educational georgiana from [employer]. Physical Exam Vital Signs: Last Vital Signs Pulse 68 10/02/22 11:02 BP 130/70 10/02/22 11:02 Pulse Ox 96 10/02/22 11:02 Oxygen Delivery Method Room Air 10/02/22 11:02 Const General: cooperative and no acute distress Orientation/consciousness: patient oriented x3 HEENT Ears: other (whisper test: pass) Neuro General: patient oriented x3 Gait exam (Neuro): Normal gait present Coordination: tandem gait normal and Romberg test negative Assessment & Plan Assessment & Plan (1) Medicare annual wellness visit, subsequent: Code(s): Z00.00 - Encounter for general adult medical examination without abnormal findings Plan: Follow up in 1 year for SAWV (2) Hypercholesterolemia: Code(s): E78.00 - Pure hypercholesterolemia, unspecified Plan: Continue on simvastatin 10mg at bedtime. Last LDL 122 Plan Keep scheduled follow up with pcp in November Quality Reporting (2019) Depression/Bipolar (159/160/161/177) PHQ-9: Total score: 8 Coding Level of Care Code Medicare Subsequent (G0439) Diagnoses Medicare annual wellness visit, subsequent Z00.00 Hypercholesterolemia E78.00 CPT Codes Advance Care Planning - Advance Care Planning discussion: On file, no changes ([id number]) Advance Care Planning Advance Care Planning discussion: On file, no changes Date of discussion: 10/02/22
[2022-10-02 11:02] VITALS: BP 130/70; PULSE 68; O2SAT 96
== END 2022-10-02 11:36 | disposition home or self-care (01) ==
PROVIDERS: PCP Internal Medicine; Visit Provider Nurse Practitioner Family
DX: Z00.00 Encounter for general adult medical examination without abnormal findings (principal); E78.00 Pure hypercholesterolemia, unspecified
CPT/HCPCS: 1123F; G0439

== ENCOUNTER 2022-11-29 09:20 | Outpatient (AMB) | payer MEDICARE, SELFPAY ==
[2022-11-29 09:36] VITALS: BP 130/62; PULSE 80; O2SAT 98
--- NOTE | 2022-11-29 09:36 | A.OFFPC_ITS ---
Vital Signs 11/29/22 09:36 Height 5 ft 6 in BMI Reason not done Patient refused/unable BP 130/62 Blood Pressure Location Lt brachial Position Sitting Pulse 80 Pulse Source Pulse Oximeter Pulse Oximetry (%) 98 Oxygen Delivery Method Room Air Intake Visit Reasons: dysthymia Allergies lactose Allergy (Intermediate, Verified 11/29/22 09:37) Flatulence Tobacco use date assessed: 05/11/22 Fall risk assessment: No Falls in past year Last assessed Fall Risk: 11/29/22 Dental Screening Dental Screen Date: 11/29/22 Did you have a dental visit in the last 12 months?: Yes Did you have a dental problem in the last 6 months where you did not have access to dental care?: No Was dental information given to patient?: Patient has dentist HPI dysthymia HPI Details 72-year-old obese female with hyperchole sterolemia , Dysthymia impaired glucose tolerance coming in for follow-up. Last seen in September 2022 for Medicare wellness. Up-to-date with colonoscopy bone density September 2021 mammogram January 2022. Patient has a neurogenic bladder with urinary retention follows up with urology August 2022 patient does self catheterizes. . patient does urinate. PAtient states saw Neurologist stable with meds- seeing therapist presently and doing better. [facility] Medical History Depression Dysthymia Elevated cholesterol History of breast cancer Hx of cardiac murmur Hx of radiation therapy Hx of sickle cell trait Hypercholesterolemia Incomplete emptying of bladder Lab test negative for COVID-19 virus Obesity Osteopenia Peripheral vascular disease Sleep apnea Tubular adenoma Wrist fracture, right Surgical History H/O breast reconstruction H/O colonoscopy H/O foot surgery History of cataract surgery History of left mastectomy Family History Father Multiple myeloma Mother Hypertension Brain aneurysm Social History Housing: House Alcohol intake: never Patient Tobacco Use Status: Never used Tobacco e-Cigarette/Vaping Use: Never Used Second Hand Smoke Exposure: No service: No Current occupational status: employed Current occupational exposures/hazards: No Cognitive needs: No Hearing needs: No Vision needs: Yes Questionnaire PHQ-9 Over the last 2 weeks, how often have you been bothered by any of the following problems? 1. Little interest or pleasure in doing things: several days 2. Feeling down, depressed, or hopeless: several days 3. Trouble falling or staying asleep, or sleeping too much: more than half the days 4. Feeling tired or having little energy: not at all 5. Poor appetite or overeating: more than half the days 6. Feeling bad about yourself - or that you are a failure or have let yourself or your family down: more than half the days 7. Trouble concentrating on things, such as reading the newspaper or watching television: not at all 8. Moving or speaking so slowly that other people could have noticed. Or the opposite - being so fidgety or restless that you have been moving around a lot more than usual: not at all 9. Thoughts that you would be better off or of hurting yourself in some way: not at all Total score: 8 [id number] - PHQ-9 Billing: Yes Source: Developed by Drs. Tong Garcia, Sayda Moran, Rudy Lopez and colleagues, with an educational georgiana from [employer]. Thrive Questionnaire Date Thrive assessed: 05/11/22 AUDIT C Alcohol Use Questionnaire (AUDIT-C) 1. How often do you have a drink containing alcohol?: Never 2. How many drinks containing alcohol do you have on a typical day when you are drinking?: 1 or 2 3. How often do you have six or more drinks on one occasion?: Never Total Score: 0 Score Reviewed/Action Taken: No DAKOTA-7 AMB Questionnaire DAKOTA-7 Date DAKOTA - 7 assessed: 05/11/22 Source: Developed by Drs. Tong Garcia, Sayda Moran, Rudy Lopez and colleagues, with an educational georgiana from [employer]. Physical exam (Primary Care) Vital Signs: Last Vital Signs Pulse 80 11/29/22 09:36 BP 130/62 11/29/22 09:36 Pulse Ox 98 11/29/22 09:36 Oxygen Delivery Method Room Air 11/29/22 09:36 Tobacco/Smoking Status: Tobacco use Status Tobacco use date assessed 05/11/22 11/29/22 09:42 Patient Tobacco Use Status Never used Tobacco 11/29/22 09:42 e-Cigarette/Vaping Use Never Used 11/29/22 09:42 PHQ-9: PHQ-9 Score PHQ-9: Total score 8 11/29/22 09:42 Thrive Assessment: Date of Thrive Assessment Date Thrive assessed 05/11/22 11/29/22 09:42 Const General: alert; No acute distress Eyes Conjunctivae: conjunctivae normal Resp Auscultation: clear to auscultation bilaterally Cardio Rate: regular rate Rhythm: regular rhythm GI Inspection: Yes normal to inspection Extrem General: Yes normal to inspection and No edema Assessment and Plan Assessment & Plan (1) Dysthymia: Comment: 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 Be it pork or beef they have a lot of cholesterol LDL goal of less than 130 and triglyceride of less than 150 patient is on simvastatin 10 mg. Patient's last blood work was April 2022 (3) Obesity: Code(s): E66.9 - Obesity, unspecified Plan: Continue with diet and exercise (4) Impaired glucose tolerance: Code(s): R73.02 - Impaired glucose tolerance (oral) Plan: Decrease the amount of carbohydrate intake, pasta, bread, rice and potatoes are all sugar and that is aside from all the sweet stuff, remember that fruits are good but they are Sweet also. (5) Urinary retention with incomplete bladder emptying: Code(s): R33.9 - Retention of urine, unspecified Plan: Patient follows up with urology Orders: Orders Comprehensive Met. Panel Today R73.02 - Impaired glucose tolerance (oral) Hemoglobin A1c Today R73.02 - Impaired glucose tolerance (oral) Vitamin B12 and Folate Today R73.02 - Impaired glucose tolerance (oral) UA w Microscopic Today R73.02 - Impaired glucose tolerance (oral) Complete Blood Count Auto Diff Today R73.02 - Impaired glucose tolerance (oral) Lipid Panel Today E78.00 - Pure hypercholesterolemia, unspecified, R73.02 - Impaired glucose tolerance (oral) Thyroid Stimulating Hormone Today R73.02 - Impaired glucose tolerance (oral) Vitamin D 25-OH Total Today R73.02 - Impaired glucose tolerance (oral) Coding Level of Care Code Est Pt Level 4 (11728) Diagnoses Dysthymia F34.1 Hypercholesterolemia E78.00 Obesity E66.9 Impaired glucose tolerance R73.02 Urinary retention with incomplete bladder emptying R33.9
== END 2022-11-29 10:05 | disposition home or self-care (01) ==
PROVIDERS: PCP Internal Medicine; Visit Provider Internal Medicine
DX: F34.1 Dysthymic disorder (principal); E78.00 Pure hypercholesterolemia, unspecified; E66.9 Obesity, unspecified; R73.02 Impaired glucose tolerance (oral); R33.9 Retention of urine, unspecified
CPT/HCPCS: 99214

== ENCOUNTER 2023-02-12 07:34 | Outpatient (REF) | payer MEDICARE, SELFPAY ==
--- NOTE | ~2023-02-12 | MM_ITS ---
EXAMINATION: MM SCREENING DIGITAL BREAST TOMOSYNTHESIS, BILATERAL CLINICAL INFORMATION: Screening. Asymptomatic. The patient is status post left mastectomy. COMPARISON: Mammography: There are no prior mammograms available for comparison. TECHNIQUE: Digital breast tomosynthesis is performed in both the craniocaudal and mediolateral oblique views along with computer-aided detection (CAD). Synthesized 2D images are generated from the tomosynthesis. FINDINGS: There are scattered areas of fibroglandular density (ACR BI-RADS breast composition Category b). There are no significant masses, abnormal calcifications, or other abnormalities. MM/MM tomosynthesis screening RT IMPRESSION: No mammographic evidence of malignancy. ASSESSMENT: BI-RADS BI-RADS 1 - Negative RECOMMENDATION: Routine annual mammography screening. 1 year F/U This examination should not preclude the clinical evaluation of a suspicious palpable abnormality. This patient's information was entered into a reminder system with a target due date for their next mammogram.
== END 2023-02-12 07:35 | disposition home or self-care (01) ==
LOC: HO.MAMMO 07:34
PROVIDERS: PCP Internal Medicine; Visit Provider Internal Medicine
DX: Z12.31 Encounter for screening mammogram for malignant neoplasm of breast (principal)
CPT/HCPCS: 77063; 77067

== ENCOUNTER → 2023-02-12 07:45 | Outpatient (BNV) | payer MEDICARE, SELFPAY | PROVIDERS: PCP Internal Medicine; Visit Provider Radiology Diagnostic Radiology | DX: Z12.31 Encounter for screening mammogram for malignant neoplasm of breast (principal) | CPT/HCPCS: 77063; 77067 ==

== ENCOUNTER 2023-02-15 11:29 | Outpatient (REF) | payer MEDICARE, SELFPAY | END 2023-02-15 11:30 | disposition home or self-care (01) | LOC: HO.LNP 11:29 | PROVIDERS: PCP Internal Medicine; Visit Provider Nurse Practitioner Family | DX: N39.0 Urinary tract infection, site not specified (principal); R33.9 Retention of urine, unspecified; N31.9 Neuromuscular dysfunction of bladder, unspecified | CPT/HCPCS: 51798; 81003; 87086; 87088; 87186; 99212 ==

== ENCOUNTER 2023-02-15 11:29 | Outpatient (AMB) | payer MEDICARE, SELFPAY ==
--- NOTE | 2023-02-15 11:31 | A.OFFVIS_ITS ---
Intake Intake Visit Reasons: 6m follow up Intake Note: Patient is present for follow up neurogenic bladder/retention Urology Medications: none Blood Thinner: none PVR: 76ml's Manager Radiation Required: No Accompanied by: Self / Same As Patient Allergies lactose Allergy (Intermediate, Verified 02/16/23 21:55) Flatulence Medication List - Last Reconciled 02/16/23 by MARK BahenaP- calcium carbonate-vitamin D3 600 mg-20 mcg (800 unit) 1 tab PO DAILY cholecalciferol (vitamin D3) 50 mcg PO DAILY citalopram 10 mg PO DAILY glucosamine HCl 500 mg PO BID lactase (Lactase Fast Acting) 9,000 units PO QID PRN levetiracetam 250 mg PO BID multivitamin 1 tab PO DAILY simvastatin 10 mg PO BEDTIME HPI HPI Comments History of Present Illness Details Marcella is a very pleasant 72-year-old female patient of Dr. Chadwick. 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 She presents to the office today for follow-up of her urinary retention incomplete bladder emptying. When asked patient reports to be doing and feeling well. She continues to be stable with CIC 2 times per day. She denies any urological issues or concerns at this time. Patient discusses previously discussing InterStim options with Dr. Holguin however is happy with current management of CIC 2 times per day. She has not had any urological issues since her last visit here in the office 6 months ago. In office urinalysis results reviewed with the patient today 3+ leukocytes. When asked she denies any UTI like symptoms. However, she does report noting cloudy urine. She otherwise denies dysuria, hematuria, flank pain, fever, and or chills. PVR 76ml's. Discussed possible need for increase in CIC. Patient reports to CIC morning and night for approximately 200 to 300 mL of yellow urine daily. She otherwise offers no issues or concerns at this time. LAST OFFICE VISIT.... Urinary retention with incomplete bladder emptying ? No UTI since last? visit ?Using CIC twice a day ?She knows to use it more often? if she is drinking more fluid. ? They are here for ?further management for incomplete emptying neurogenic? bladder ?- CIC BID - has 8 oz on CIC is urinating for? herself.? Urinary retention initially found?after inability to void ?- Has been managed? with clean intermittent catheterization since 2009. Has occasional UTI.? According to patient urodynamics was performed which showed no bladder contraction. Was offered sacral stimulator..? Imaging? results?05/05 renal b u/s - retention? 200cc.? Associated conditions? Alzhiemers? ?No ? CAD ?No ? CVA ?No ? Diabetes ?No ? Multiple sclerosis ?No ? renal replacement therapy ?No ? Spinal injury/surgery? ?No ? Current management?clean intermittent catheterization. [facility] Medical History Tubular adenoma Hx of radiation therapy Lab test negative for COVID-19 virus Hx of sickle cell trait Depression Sleep apnea Elevated cholesterol Hx of cardiac murmur Obesity Incomplete emptying of bladder Wrist fracture, right Osteopenia Peripheral vascular disease Hypercholesterolemia History of breast cancer Dysthymia Surgical History H/O colonoscopy History of left mastectomy History of cataract surgery H/O foot surgery H/O breast reconstruction Family History Father Multiple myeloma Mother Hypertension Brain aneurysm Social History Housing: House Alcohol intake: never Patient Tobacco Use Status: Never used Tobacco e-Cigarette/Vaping Use: Never Used Second Hand Smoke Exposure: No service: No Current occupational status: employed Current occupational exposures/hazards: No Cognitive needs: No Hearing needs: No Vision needs: Yes Review of Systems Const Reports as per HPI Eyes Reports no additional complaints ENT Reports no additional complaints Card Reports as per HPI Resp Reports as per HPI GI Reports as per HPI Reports as per HPI Musc Reports no additional complaints Neuro Reports no additional complaints Psych Reports as per HPI Endo Reports no additional complaints Physical Exam Const General: cooperative, healthy appearing, comfortable, no acute distress, well developed, alert and awake Nutritional Appearance: overweight Orientation/consciousness: patient oriented x3 Limitations: no limitations HEENT Head: Yes normal to inspection, Yes normocephalic and Yes atraumatic Ears: hearing grossly normal bilaterally Eyes General: appearance normal, both eyes and all related structures Neck Neck: Yes normal visual inspection and Yes trachea midline Chest Chest palpation & inspection: normal inspection of the chest Resp Effort & Inspection: normal respiratory effort and able to speak in complete sentences Cardio Rate: regular rate GI Inspection: Yes normal to inspection General: Yes no CVA tenderness Back/Spine/Pelvis Back: no CVA tenderness Skin General skin exam: no rashes or lesions noted Neuro General: patient oriented x3 Extrem General: Yes normal to inspection Psych Appearance: grossly normal and well kempt Mental Status: mental status grossly normal Speech and movement: Normal speech and movement present and Clear speech present Affect: normal affect Attitude: cooperative Thought process: Normal thought process present Thought content: Normal thought content present Insight: Good insight present (Psych) Judgement: Good judgement present (Psych) Office Procedures Post Void Residual Post Residual Void Post Void Residual (PVR): 76 [id number] Void Residual by ultrasound Results AMB Urinalysis, Automated UA Leukoctes 500 Kendra/uL Last Edit by GrandCamp on 02/15/23 12:11 UA Nitrite Negative Last Edit by GrandCamp on 02/15/23 12:11 UA Urobilinogen 0.2 mg/dL Last Edit by GrandCamp on 02/15/23 12:11 UA Protein 15 mg/dL Last Edit by GrandCamp on 02/15/23 12:11 UA pH 6.0 Last Edit by GrandCamp on 02/15/23 12:11 UA Blood 25 Michael/uL Last Edit by GrandCamp on 02/15/23 12:11 UA Specific [place] 1.010 Last Edit by GrandCamp on 02/15/23 12:11 UA Ketone Negative Last Edit by Peter Aguillon on 02/15/23 12:11 UA Bilirubin 0 mg/dL Last Edit by Peter Aguillon on 02/15/23 12:11 UA Glucose 0 mg/dL Last Edit by Peter Aguillon on 02/15/23 12:11 Results Reviewed Results Reviewed: Laboratory Last Values Urine pH (Auto) 6.0 02/15/23 11:35 Specific [place] (Auto) 1.010 02/15/23 11:35 Urine Protein (Auto) 15 mg/dL 02/15/23 11:35 Glucose (UA)(Auto) 0 mg/dL 02/15/23 11:35 Urine Ketones (Auto) Negative 02/15/23 11:35 Urine Blood (Auto) 25 Michael/uL 02/15/23 11:35 Urine Nitrite (Auto) Negative 02/15/23 11:35 Urine Bilirubin (Auto) 0 mg/dL 02/15/23 11:35 Urine Urobilinogen (Auto) 0.2 mg/dL 02/15/23 11:35 Leukocyte Esterase (Auto) 500 Kendra/uL 02/15/23 11:35 Assessment & Plan Assessment & Plan (1) Urinary retention with incomplete bladder emptying: Code(s): R33.9 - Retention of urine, unspecified Plan In office urinalysis results reviewed with the patient today; as noted above; will send for urine culture. PVR 76 mL. Will obtain retroperitoneal ultrasound for further assessment evaluation. Will obtain BUN and creatinine for further assessment evaluation. Discussed possible need for increase in CIC Continue CIC-patient uses [facility] does not need refill on supplies at this time. Educated, encouraged, instructed on the importance of drinking had adequate amount of water daily. Patient denies any urological issues or concerns at this time. Follow-up in 3 months with labs and imaging to be completed prior; if not sooner with any issues, concerns, and or questions. Orders: Orders AMB Post Void Residual by ultrasound 02/15/23 R33.9 - Retention of urine, unspecified Urine Culture 02/15/23 N39.0 - Urinary tract infection, site not specified AMB Urinalysis Automated 02/15/23 Z13.9 - Encounter for screening, unspecified US retroperitoneal limited 02/15/23 R31.29 - Other microscopic hematuria Blood Urea Nitrogen 02/15/23 R39.15 - Urgency of urination Creatinine 02/15/23 R39.15 - Urgency of urination Patient Instructions: The patient had an opportunity to ask questions regarding the treatment plan. A ll questions were answered. Physical exam, labs, and imaging were discussed and reviewed in detail. As well as risks, benefits, and discussion of treatment choices. No major barriers to understanding were identified. The patient expressed understanding and agreement with the above treatment plan. The patient was made aware they should contact our office by phone for worsening of their current condition, the appearance of new symptoms, or with any questions or concerns. Compliance is encouraged with any medications and follow up testing that is ordered. It is a privilege to be allowed the opportunity to participate in? your urological care.? Again, if you have any questions or concerns If you have any questions or concerns please do not hesitate to contact me. The office is [phone]. This note is constructed using voice recognition software. While every effort has been made to ensure accuracy physician relations specialist errors may have been included. Yours sincerely, CRISELDA Bahena-ABY Coding Level of Care Code Est Pt Level 3 (06177) Diagnoses Urinary retention with incomplete bladder emptying R33.9 CPT Codes Post Residual Void - PVR CPT Code: 08886-Dhae Void Residual by ultrasound ([id number])
== END 2023-02-15 12:42 | disposition home or self-care (01) ==
PROVIDERS: PCP Internal Medicine; Visit Provider Nurse Practitioner Family
DX: R33.9 Retention of urine, unspecified (principal)
CPT/HCPCS: 99213

== ENCOUNTER 2023-05-03 09:49 | Outpatient (REF) | payer MEDICARE, SELFPAY ==
--- NOTE | ~2023-05-03 | US_ITS ---
EXAMINATION: US RETROPERITONEAL COMPLETE (RENAL) CLINICAL INFORMATION: Other microscopic hematuria. COMPARISON: Ultrasound kidneys and bladder 05/07/2017. TECHNIQUE: Real-time imaging of the kidneys and bladder. FINDINGS: RIGHT KIDNEY: 11.2 x 3.5 x 5.0 cm (SAG x AP x TRV). The kidney is normal in size, contour, and echogenicity. Renal cortical thickness is normal. No calculi or focal parenchymal lesions. No hydronephrosis. LEFT KIDNEY: 9.6 x 6.3 x 5.0 cm (SAG x AP x TRV). The kidney is normal in size, contour, and echogenicity. Renal cortical thickness is normal. No calculi or focal parenchymal lesions. No hydronephrosis. BLADDER: Well distended and normal. Bilateral ureteral jets are demonstrated. Prevoid bladder volume is 451 mL. Postvoid bladder volume is 337 mL. US/US retroperitoneal comp IMPRESSION: Normal-appearing kidneys. Distended urinary bladder with significant post void residual. No hydronephrosis.
== END 2023-05-03 09:50 | disposition home or self-care (01) ==
LOC: HO.US 09:49
PROVIDERS: PCP Internal Medicine; Visit Provider Nurse Practitioner Family
DX: R31.29 Other microscopic hematuria (principal)
CPT/HCPCS: 76770

== ENCOUNTER 2023-05-09 11:17 | Outpatient (REF) | payer MEDICARE, SELFPAY ==
[2023-05-09 12:44] LABS: Blood Urea Nitrogen 12 mg/dL (9-16); Estimated Glomerular Filt Rate > 60
== END 2023-05-09 11:18 | disposition home or self-care (01) ==
LOC: HO.LAB 11:17
PROVIDERS: PCP Internal Medicine; Visit Provider Nurse Practitioner Family
DX: R39.15 Urgency of urination (principal)
CPT/HCPCS: 36415; 82565; 84520

== ENCOUNTER 2023-05-13 08:23 | Outpatient (REF) | payer MEDICARE, SELFPAY ==
[2023-05-13 08:41] LABS: MANUAL DIFF FLAG NO
[2023-05-13 09:20] LABS: Basophils Percent Auto 0.2 % (0-2); Eosinophils Absolute Auto 0.1 X10*3/uL (0.0-0.4); Hematocrit 38.3 % (37.0-47.0); Imm Gran Abs Auto 0.02 X10*3/uL (0.00-0.03); Imm Gran Pct Auto 0.3 % (0.0-0.4); Lymphocytes Absolute Auto 1.3 X10*3/uL (1.2-4.9); Lymphocytes Percent Auto 20.1 % (20-40); Mean Corpuscular HGB Conc 33.9 g/dl (31.0-35.0); Mean Corpuscular Hemoglobin 28.1 pg (27.0-33.0); Mean Corpuscular Volume 82.9 fL (80.0-98.0); Mean Platelet Volume 11.2 fL (9.4-12.3); Monocytes Absolute Auto 0.4 X10*3/uL (0.1-1.2); Monocytes Percent Auto 6.5 % (2-11); Neutrophils Absolute Auto 4.5 x10*3/uL (2.0-8.3); Neutrophils Percent Auto 71.9 % (45-73); Platelet Count 315 X10*3/uL (160-400); Red Blood Count 4.62 X10*6/uL (4.20-5.50); Red Cell Distribution Width 13.5 % (11.0-16.0); White Blood Count 6.3 X10*3/uL (4.8-10.8)
[2023-05-13 09:54] LABS: Estimated Average Glucose 120 mg/dL; Hemoglobin A1c % 5.8 % (<6.0)
[2023-05-13 10:17] LABS: Alanine Aminotransferase 16 U/L (0-31); Albumin Level 3.8 g/dL (3.5-5.0); Alkaline Phosphatase 98 U/L (39-117); Anion Gap 12 (12-20); Aspartate Amino Transferase 17 U/L (5-31); Bilirubin Total 0.4 mg/dL (0.0-1.0); Blood Urea Nitrogen 12 mg/dL (9-16); Calcium 9.6 mg/dL (8.4-10.2); Carbon Dioxide 27 mmol/L (22-29); Chloride 103 mmol/L (96-108); Cholesterol 189 mg/dL (<200); Estimated Glomerular Filt Rate > 60; Glucose Random 95 mg/dL (60-115); HDL Cholesterol 56 mg/dL (>40); LDL Cholesterol Calculated 119 mg/dL (<100); Potassium 3.7 mmol/L (3.3-5.1); Sodium 138 mmol/L (135-145); Total Protein 7.9 g/dL (6.5-8.0); Triglycerides 72 mg/dL (<150)
[2023-05-13 10:19] LABS: Thyroid Stimulating Hormone 1.79 uIU/mL (0.32-4.0); Vitamin D 25-OH Total 57.5 ng/mL (>30)
[2023-05-13 11:26] LABS: Folate 17.7 ng/mL (> or = 4.0); Vitamin B12 832 pg/mL (200-900)
[2023-05-13 12:23] LABS: Appearance Urine Cloudy; Color Urine Yellow; Glucose Urine UA Negative (Negative); Leukocyte Esterase Urine Large (3+) (Negative); Nitrite Urine Negative (Negative); PH 7.5 (5.0-9.0); Specific Gravity - Urine <= 1.005 (1.005-1.025); UMIC TRIGGER UA YES; Urine Blood Trace (Negative); Urine Ketones Negative (Negative); Urine Protein Negative (Neg-Trace)
[2023-05-13 12:26] LABS: Bacteria Urine 1+ (None Seen); Hyaline Casts Urine 0-2 /LPF (0-2); RBC Urine 0-2 /HPF (0-2); WBC Urine >50 /HPF (0-5)
== END 2023-05-13 08:24 | disposition home or self-care (01) ==
LOC: HO.LAB 08:23
PROVIDERS: PCP Internal Medicine; Visit Provider Internal Medicine
DX: R73.02 Impaired glucose tolerance (oral) (principal); E78.00 Pure hypercholesterolemia, unspecified
CPT/HCPCS: 36415; 80053; 80061; 81001; 82306; 82607; 82746; 83036; 84443; 85025

== ENCOUNTER 2023-05-14 09:33 | Outpatient (AMB) | payer MEDICARE, SELFPAY ==
--- NOTE | 2023-05-14 09:51 | A.OFFVIS_ITS ---
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 Accompanied by: Self / Same As Patient Allergies lactose Allergy (Intermediate, Verified 05/14/23 20:37) Flatulence Medication List - Last Reconciled 05/14/23 by CRISELDA Bahena- calcium carbonate-vitamin D3 600 mg-20 mcg (800 unit) 1 tab PO DAILY cholecalciferol (vitamin D3) 50 mcg PO DAILY citalopram 10 mg PO DAILY glucosamine HCl 500 mg PO BID lactase (Lactase Fast Acting) 9,000 units PO QID PRN levetiracetam 250 mg PO BID 90 days multivitamin 1 tab PO DAILY simvastatin 10 mg PO BEDTIME HPI HPI Comments History of Present Illness Details Marcella is a very pleasant 72-year-old female patient of Dr. Chadwick. 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 She presents to the office today for follow-up of her urinary retention incomplete bladder emptying. Recent retroperitoneal ultrasound results reviewed with the patient today. Bilateral kidneys with no calculi, lesions, and or hydronephrosis. The bladder is well distended and normal. Bilateral ureteral jets are demonstrated. Pre void bladder volume is proxy 450 mL. Postvoid bladder volume is 350 mL. In office urinalysis results reviewed with the patient today. 3+ leukocytes positive nitrates. However, patient denies any UTI like symptoms. During last office visit urine culture was sent for further assessment evaluation. Urine culture results noted enterobacter cloacae complex at which time she was started on Bactrim. She reports having completed antibiotic therapy as prescribed. She continues to CIC approximately 2 times per day. BUN and creatinine results trended and reviewed with the patient today. BUN: 04/11 14, 10/09 12, 05/10 15, 05/11 12, 05/11 12 Creatinine: 04/11 0.83, 10/09 0.89, 05/10 0.79, 05/11 0.83, 05/11 0.85 She denies urinary urgency, urinary frequency, incontinence, nocturia, hematuria, dysuria, foul smelling urine, changes to urinary stream, flank pain, fever, and or chills. Patient reports to CIC morning and night for approximately 200 to 300 mL of yellow urine daily. She otherwise offers no issues or concerns at this time. LAST OFFICE VISIT.... Urinary retention with incomplete bladder emptying ? No UTI since last? visit ?Using CIC twice a day ?She knows to use it more often? if she is drinking more fluid. ? They are here for ?further management for incomplete emptying neurogenic? bladder ?- CIC BID - has 8 oz on CIC is urinating for? herself.? Urinary retention initially found?after inability to void ?- Has been managed? with clean intermittent catheterization since 2009. Has occasional UTI.? According to patient urodynamics was performed which showed no bladder contraction. Was offered sacral stimulator..? Imaging? results?05/05 renal b u/s - retention? 200cc.? Associated conditions? Alzhiemers? ?No ? CAD ?No ? CVA ?No ? Diabetes ?No ? Multiple sclerosis ?No ? renal replacement therapy ?No ? Spinal injury/surgery? ?No ? Current management?clean intermittent catheterization. [facility] Medical History Tubular adenoma Hx of radiation therapy Lab test negative for COVID-19 virus Hx of sickle cell trait Depression Sleep apnea Elevated cholesterol Hx of cardiac murmur Obesity Incomplete emptying of bladder Wrist fracture, right Osteopenia Peripheral vascular disease Hypercholesterolemia History of breast cancer Dysthymia Surgical History H/O colonoscopy History of left mastectomy History of cataract surgery H/O foot surgery H/O breast reconstruction Family History Father Multiple myeloma Mother Hypertension Brain aneurysm Social History Housing: House Alcohol intake: never Patient Tobacco Use Status: Never used Tobacco e-Cigarette/Vaping Use: Never Used Second Hand Smoke Exposure: No service: No Current occupational status: employed Current occupational exposures/hazards: No Cognitive needs: No Hearing needs: No Vision needs: Yes Review of Systems Const Reports as per HPI Eyes Reports no additional complaints ENT Reports no additional complaints Card Reports as per HPI Resp Reports as per HPI GI Reports as per HPI Reports as per HPI Musc Reports no additional complaints Neuro Reports no additional complaints Psych Reports as per HPI Endo Reports no additional complaints Physical Exam Const General: cooperative, healthy appearing, comfortable, no acute distress, well developed, alert and awake Nutritional Appearance: overweight Orientation/consciousness: patient oriented x3 Limitations: no limitations HEENT Head: Yes normal to inspection, Yes normocephalic and Yes atraumatic Ears: hearing grossly normal bilaterally Eyes General: appearance normal, both eyes and all related structures Neck Neck: Yes normal visual inspection and Yes trachea midline Chest Chest palpation & inspection: normal inspection of the chest Resp Effort & Inspection: normal respiratory effort and able to speak in complete sentences Cardio Rate: regular rate GI Inspection: Yes normal to inspection General: Yes no CVA tenderness Back/Spine/Pelvis Back: no CVA tenderness Skin General skin exam: no rashes or lesions noted Neuro General: patient oriented x3 Extrem General: Yes normal to inspection Psych Appearance: grossly normal and well kempt Mental Status: mental status grossly normal Speech and movement: Normal speech and movement present and Clear speech present Affect: normal affect Attitude: cooperative Thought process: Normal thought process present Thought content: Normal thought content present Insight: Good insight present (Psych) Judgement: Good judgement present (Psych) Office Procedures Post Void Residual Post Residual Void Post Void Residual (PVR): 0 89410-Mnvs Void Residual by ultrasound Results AMB Urinalysis, Automated UA Leukoctes 500 Kendra/uL Last Edit by [employer] [facility] on 05/14/23 10:04 UA Nitrite Positive Last Edit by [facility], [facility] on 05/14/23 10: 04 UA Urobilinogen 0.2 mg/dL Last Edit by [employer], [facility] on 4 10:04 UA Protein 15 mg/dL Last Edit by [facility], [facility] on 05/14/23 10:0 4 UA pH 7.0 Last Edit by [facility], [facility] on 05/14/23 10:04 UA Blood 10 Michael/uL Last Edit by [employer] [facility], [facility] on 05/14/23 10:04 UA Specific Sikes 1.010 Last Edit by [employer] [facility] on 10:04 UA Ketone Negative Last Edit by [facility], [facility] on 05/14/23 10:0 4 UA Bilirubin 0 mg/dL Last Edit by [facility] on 05/14/23 10: 04 UA Glucose 0 mg/dL Last Edit by [facility] on 05/14/23 10:04 Results Reviewed Results Reviewed: Laboratory Last Values Urine pH (Auto) 7.0 05/14/23 10:02 Specific Sikes (Auto) 1.010 05/14/23 10:02 Urine Protein (Auto) 15 mg/dL 05/14/23 10:02 Glucose (UA)(Auto) 0 mg/dL 05/14/23 10:02 Urine Ketones (Auto) Negative 05/14/23 10:02 Urine Blood (Auto) 10 Michael/uL 05/14/23 10:02 Urine Nitrite (Auto) Positive 05/14/23 10:02 Urine Bilirubin (Auto) 0 mg/dL 05/14/23 10:02 Urine Urobilinogen (Auto) 0.2 mg/dL 05/14/23 10:02 Leukocyte Esterase (Auto) 500 Kendra/uL 05/14/23 10:02 Date of Service: 05/03/23 EXAMINATION: US RETROPERITONEAL COMPLETE (RENAL) FINDINGS: RIGHT KIDNEY: 11.2 x 3.5 x 5.0 cm (SAG x AP x TRV). The kidney is normal in size, contour, and echogenicity. Renal cortical thickness is normal. No calculi or focal parenchymal lesions. No hydronephrosis. LEFT KIDNEY: 9.6 x 6.3 x 5.0 cm (SAG x AP x TRV). The kidney is normal in size, contour, and echogenicity. Renal cortical thickness is normal. No calculi or focal parenchymal lesions. No hydronephrosis. BLADDER: Well distended and normal. Bilateral ureteral jets are demonstrated. Prevoid bladder volume is 451 mL. Postvoid bladder volume is 337 mL. IMPRESSION: Normal-appearing kidneys. Distended urinary bladder with significant post void residual. No hydronephrosis. Assessment & Plan Assessment & Plan (1) UTI (urinary tract infection): Code(s): N39.0 - Urinary tract infection, site not specified (2) Urinary retention with incomplete bladder emptying: Code(s): R33.9 - Retention of urine, unspecified Plan In office urinalysis results reviewed with the patient today; as noted above; will send for urine culture; will await urine culture results for potential t reatment. PVR 0 mL; however patient CIC's. Patient currently denies any bothersome urinary issues or concerns. She denies any UTI like symptoms at this time. Recent retroperitoneal ultrasound results reviewed with the patient today. BUN and creatinine trends reviewed with the patient today; as noted above. Discussed UTI prevention with D mannose supplement, vitamin-C, increasing fluid intake, behavioral therapy with timed voiding, perineal hygiene and postcoital voiding, and management of constipation with stool softeners and increased fiber intake. Follow-up in 3 months with PVR; or sooner with any issues, concerns, and or questions. Orders: Orders AMB Post Void Residual by ultrasound Today R33.9 - Retention of urine, unspecified Urine Culture Today N39.0 - Urinary tract infection, site not specified AMB Urinalysis Automated Today R33.9 - Retention of urine, unspecified Patient Instructions: The patient had an opportunity to ask questions regarding the treatment plan. All questions were answered. Physical exam, labs, and imaging were discussed and reviewed in detail. As well as risks, benefits, and discussion of treatment choices. No major barriers to understanding were identified. The patient expressed understanding and agreement with the above treatment plan. The patient was made aware they should contact our office by phone for worsening of their current condition, the appearance of new symptoms, or with any questions or concerns. Compliance is encouraged with any medications and follow up testing that is ordered. It is a privilege to be allowed the opportunity to participate in? your urological care.? Again, if you have any questions or concerns If you have any questions or concerns please do not hesitate to contact me. The office is [phone]. This note is constructed using voice recognition software. While every effort has been made to ensure accuracy laborer concrete plant errors may have been included. Yours sincerely, CRISELDA Bahena-ABY Coding Level of Care Code Est Pt Level 4 (18483) Diagnoses UTI (urinary tract infection) N39.0 Urinary retention with incomplete bladder emptying R33.9 CPT Codes Post Residual Void - PVR CPT Code: 47119-Hewz Void Residual by ultrasound ([id number])
== END 2023-05-14 10:31 | disposition home or self-care (01) ==
PROVIDERS: PCP Internal Medicine; Visit Provider Nurse Practitioner Family
DX: N39.0 Urinary tract infection, site not specified (principal); R33.9 Retention of urine, unspecified
CPT/HCPCS: 99214

== ENCOUNTER 2023-05-14 09:33 | Outpatient (REF) | payer MEDICARE, SELFPAY | END 2023-05-14 09:34 | disposition home or self-care (01) | LOC: HO.LAB 09:33 | PROVIDERS: PCP Internal Medicine; Visit Provider Nurse Practitioner Family | DX: N39.0 Urinary tract infection, site not specified (principal); N31.9 Neuromuscular dysfunction of bladder, unspecified; R33.9 Retention of urine, unspecified; Z79.899 Other long term (current) drug therapy | CPT/HCPCS: 51798; 81003; 87086; 87088; 87186; 99212 ==

== ENCOUNTER 2023-05-28 15:51 | Outpatient (REF) | payer MEDICARE, SELFPAY ==
[2023-05-28 17:55] LABS: Appearance Urine Cloudy; Color Urine Yellow; Glucose Urine UA Negative (Negative); Leukocyte Esterase Urine Large (3+) (Negative); Nitrite Urine Negative (Negative); UMIC TRIGGER UA YES; Urine Blood Negative (Negative); Urine Ketones Negative (Negative); Urine Protein Negative (Neg-Trace)
[2023-05-28 18:09] LABS: Bacteria Urine 3+ (None Seen); Hyaline Casts Urine 0-2 /LPF (0-2); RBC Urine 0-2 /HPF (0-2); Squamous Epithelial Cell Urine >20 /HPF (0-2); WBC Urine 21-50 /HPF (0-5)
== END 2023-05-28 15:52 | disposition home or self-care (01) ==
LOC: HO.LAB 15:51
PROVIDERS: PCP Internal Medicine; Visit Provider Nurse Practitioner Family
DX: R33.9 Retention of urine, unspecified (principal); N39.0 Urinary tract infection, site not specified
CPT/HCPCS: 81001; 87086

== ENCOUNTER 2023-05-31 08:36 | Outpatient (AMB) | payer MEDICARE, SELFPAY ==
--- NOTE | 2023-05-31 08:36 | A.OFFPC_ITS ---
Intake Visit Reasons: Dysthymia,cholesterol Clinic Charge Nurse Required: No Allergies lactose Allergy (Intermediate, Verified 05/31/23 08:36) Flatulence Tobacco use date assessed: 05/31/23 Fall risk assessment: No Falls in past year Last assessed Fall Risk: 05/31/23 Dental Screening Dental Screen Date: 05/31/23 Did you have a dental visit in the last 12 months?: Yes Did you have a dental problem in the last 6 months where you did not have access to dental care?: No Was dental information given to patient?: Patient has dentist HPI Dysthymia,cholesterol HPI Details 72-year-old obese female with this time it hypercholesterolemia impaired glucose tolerance coming in for follow-up. Last seen in November 2022. Patient's colonoscopy is up-to-date. Mammograms up-to-date and bone density is up-to-date. Review of the notes follows up with urology and was seen in April 2023 for urinary retention. Patient does self catheterization 3 times a day. for the bacteriuria - took antibiotic- no changes will talk to Urology. going to [facility]. 3 weeks- MRI brain in [facility] Medical History Tubular adenoma Hx of radiation therapy Lab test negative for COVID-19 virus Hx of sickle cell trait Depression Sleep apnea Elevated cholesterol Hx of cardiac murmur Obesity Incomplete emptying of bladder Wrist fracture, right Osteopenia Peripheral vascular disease Hypercholesterolemia History of breast cancer Dysthymia Surgical History H/O colonoscopy History of left mastectomy History of cataract surgery H/O foot surgery H/O breast reconstruction Family History Father Multiple myeloma Mother Hypertension Brain aneurysm Social History Housing: House Alcohol intake: never Patient Tobacco Use Status: Never used Tobacco e-Cigarette/Vaping Use: Never Used Second Hand Smoke Exposure: No service: No Current occupational status: employed Current occupational exposures/hazards: No Cognitive needs: No Hearing needs: No Vision needs: Yes Questionnaire PHQ-9 Over the last 2 weeks, how often have you been bothered by any of the following problems? 1. Little interest or pleasure in doing things: several days 2. Feeling down, depressed, or hopeless: several days 3. Trouble falling or staying asleep, or sleeping too much: more than half the days 4. Feeling tired or having little energy: not at all 5. Poor appetite or overeating: more than half the days 6. Feeling bad about yourself - or that you are a failure or have let yourself or your family down: more than half the days 7. Trouble concentrating on things, such as reading the newspaper or watching television: not at all 8. Moving or speaking so slowly that other people could have noticed. Or the opposite - being so fidgety or restless that you have been moving around a lot more than usual: not at all 9. Thoughts that you would be better off or of hurting yourself in some way: not at all Total score: 8 Depression Screening Interpretation: Positive Depression Screening Follow-up: Existing condition and In treatment Depression Screening Done: Yes 17413 - PHQ-9 Billing: Yes Source: Developed by Drs. Tong Garcia, Sayda Moran, Rudy Lopez and colleagues, with an educational georgiana from [employer]. Thrive Questionnaire Date Thrive assessed: 05/31/23 I am a: Patient What is your living situation today?: I have a steady place to live Within the past 12 months, did the food you bought not last and you didn't have the money to get more?: Never true Within the past 12 months, did you worry whether your food would run out before you got money to buy more?: Never true Do you have trouble paying for medicines?: No Do you have trouble getting transportation to medical appointments?: No Do you have trouble paying your heating and electricity bill?: No Do you have trouble taking care of your child, family member or friend?: No Do you have trouble with day-to-day activities such as bathing, preparing meals, shopping, managing finances, etc.?: No Are you currently unemployed and looking for a job?: No Are you interested in more education?: No Please select the resources that you would like help with: None Currently or been in a relationship where the following occur: no concerns reported THRIVE Score: 0 AUDIT C Alcohol Use Questionnaire (AUDIT-C) 1. How often do you have a drink containing alcohol?: Never 2. How many drinks containing alcohol do you have on a typical day when you are drinking?: 1 or 2 3. How often do you have six or more drinks on one occasion?: Never Total Score: 0 Score Reviewed/Action Taken: No DAKOTA-7 AMB Questionnaire DAKOTA-7 Date DAKOTA - 7 assessed: 05/31/23 Feeling nervous, anxious, or on edge: 0 = Not at all Not being able to stop or control worryin = Not at all Worrying too much about different things: 0 = Not at all Trouble relaxin = Not at all Being so restless that it is hard to sit still: 0 = Not at all Becoming easily annoyed or irritable: 0 = Not at all Feeling afraid as if something awful might happen: 0 = Not at all Total DAKOTA-7 score (0-4 normal; 5-9 mild; 10-14 moderate; 15-21 severe): 0 Source: Developed by Drs. Tong Garcia, Sayda Moran, Rudy Lopez and colleagues, with an educational georgiana from [employer]. DAKOTA-7 Assessment Billing DAKOTA-7 Assessment Tool: DAKOTA-7 Assessment 60403 Physical exam (Primary Care) Tobacco/Smoking Status: Tobacco use Status Tobacco use date assessed 05/31/23 05/31/23 08:39 Patient Tobacco Use Status Never used Tobacco 05/31/23 08:39 e-Cigarette/Vaping Use Never Used 05/31/23 08:39 PHQ-9: PHQ-9 Score PHQ-9: Total score 8 05/31/23 08:39 Depression Screening Interpretation: Positive Depression Screening Follow-up: Existing condition and In treatment Thrive Assessment: Date of Thrive Assessment Date Thrive assessed 05/31/23 05/31/23 08:39 Currently or been in a relationship where the following occur: no concerns reported Telehealth Telehealth Location of provider rendering services: practice address Location of patient: address on file Patient Identification confirmed using: Name, : Yes Telehealth method: voice only (android) Patient verbally consented to treatment: Yes Patient verbally consented to billing insurance company: Yes Patient informed of any privacy concerns related to visit: Yes Minutes spent on Phone/Video with Pt.: 25 Assessment and Plan Assessment & Plan (1) Hypercholesterolemia: Code(s): E78.00 - Pure hypercholesterolemia, unspecified Plan: Avoid fried foods, chicken skin, eggs, butter margarine, pastries and meat. Be it pork or beef they have a lot of cholesterol LDL goal of less than 130 and triglyceride of less than 150 April 2023 last blood work simvastatin 10 mg at bedtime (2) Impaired glucose tolerance: Code(s): R73.02 - Impaired glucose tolerance (oral) Plan: Decrease the amount of carbohydrate intake, pasta, bread, rice and potatoes are all sugar and that is aside from all the sweet stuff, remember that fruits are good but they are Sweet also. 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
== END 2023-05-31 10:13 | disposition home or self-care (01) ==
LOC: HO.HMGH 08:36
PROVIDERS: PCP Internal Medicine; Visit Provider Internal Medicine
DX: E78.00 Pure hypercholesterolemia, unspecified (principal); R73.02 Impaired glucose tolerance (oral); R33.9 Retention of urine, unspecified; F34.1 Dysthymic disorder
CPT/HCPCS: 99443

== ENCOUNTER 2023-10-04 11:21 | Outpatient (AMB) | payer MEDICARE, SELFPAY ==
--- NOTE | 2023-10-04 11:23 | AM.OFFVISMDC ---
Intake Vital Signs 10/04/23 11:32 Height 5 ft 6 in BMI Reason not done Patient refused/unable BP 130/68 Blood Pressure Location Lt brachial Position Sitting Pulse 84 Pulse Source Pulse Oximeter Pulse Oximetry (%) 99 Oxygen Delivery Method Room Air Intake Visit Reasons: SAWV Allergies lactose Allergy (Intermediate, Verified 05/31/23 08:36) Flatulence Medication List - Last Reconciled 10/04/23 by Elidia Chadwick MD calcium carbonate-vitamin D3 600 mg-20 mcg (800 unit) 1 tab PO DAILY cholecalciferol (vitamin D3) 50 mcg PO DAILY citalopram 10 mg PO DAILY lactase (Lactase Fast Acting) 9,000 units PO QID PRN multivitamin 1 tab PO DAILY simvastatin 10 mg PO BEDTIME HPI SAWV HPI Details 72-year-old female with hypercholesterolemia dysthymia, impaired glucose tolerance and urinary retention coming in for annual well visit last seen in 06/08/2023. Patient's colonoscopy is up-to-date 01/08/2020 mammogram is up-to-date 02/06/2023 normal bone density in 10/07/2021. [facility] Medical History (Updated 10/04/23 @ 12:24 by Elidia Chadwick MD) Tubular adenoma Hx of radiation therapy Lab test negative for COVID-19 virus Hx of sickle cell trait Depression Sleep apnea Elevated cholesterol Hx of cardiac murmur Obesity Incomplete emptying of bladder Wrist fracture, right Osteopenia Peripheral vascular disease Hypercholesterolemia History of breast cancer Dysthymia Surgical History H/O colonoscopy History of left mastectomy History of cataract surgery H/O foot surgery H/O breast reconstruction Family History Father Multiple myeloma Mother Hypertension Brain aneurysm Social History Housing: House Alcohol intake: never Patient Tobacco Use Status: Never used Tobacco e-Cigarette/Vaping Use: Never Used Second Hand Smoke Exposure: No service: No Current occupational status: employed Current occupational exposures/hazards: No Cognitive needs: No Hearing needs: No Vision needs: Yes Questionnaire Medicare Wellness Checkup [age] 65-71 What gender do you identify with?: female During the past 4 weeks, how much have you been bothered by emotional problems such as feeling anxious, depressed, irritable, sad or downhearted, and blue?: moderately During the past 4 weeks, has your physical & emotional health limited your social activities with family, friends, neighbors, or groups?: moderately During the past 4 weeks, how much bodily pain have you generally had?: very mild pain During the past 4 weeks, was someone available to help you if you needed & wanted help?: yes, as much as I wanted During the past 4 weeks, what was the hardest physical activity you could do for at least 2 minutes?: moderate Can you get to places out of walking distance without help? (For eg., can you travel alone on buses, taxis or drive your car?): Yes Can you go shopping for groceries or clothes without someone's help?: Yes Can you prepare your own meals?: Yes Can you do your housework without help?: Yes Because of any health problems, do you need the help of another person with your personal care needs such as eating, bathing, dressing or getting around the house?: No Can you handle your own money without help?: Yes During the past 4 weeks, how would you rate your health in general?: good During the past 4 weeks how have things been going for you?: good & bad parts about equal Are you having difficulties driving your car?: no Do you always fasten your seat belt when you are in a car?: yes, usually During past 4 weeks, have you been bothered by the following: never: Falling or dizzy when standing up, Sexual problems?, Teeth or denture problems? and Problems using the telephone? and seldom: Trouble eating well? and Tiredness or fatigue? Have you fallen 2 or more times in the past year?: No Are you afraid of falling?: Yes Are you a smoker?: no During the past 4 weeks, how many drinks of wine, beer, or other alcoholic beverages did you have?: no alcohol at all Do you exercise for about 20 minutes 3 or more times a week?: no, I usually do not exercise this much Have you been given information to help with the following?: yes: Hazards in your house that might hurt you? and yes: Keeping track of your medications? How often do you have trouble taking medicines the way you have been told to take them?: I always take medicine as prescribed How confident are you that you can control & manage most of your health problems?: very confident What is your race?: Black or PHQ-9 Over the last 2 weeks, how often have you been bothered by any of the following problems? 1. Little interest or pleasure in doing things: several days 2. Feeling down, depressed, or hopeless: several days 3. Trouble falling or staying asleep, or sleeping too much: more than half the days 4. Feeling tired or having little energy: not at all 5. Poor appetite or overeating: more than half the days 6. Feeling bad about yourself - or that you are a failure or have let yourself or your family down: more than half the days 7. Trouble concentrating on things, such as reading the newspaper or watching television: not at all 8. Moving or speaking so slowly that other people could have noticed. Or the opposite - being so fidgety or restless that you have been moving around a lot more than usual: not at all 9. Thoughts that you would be better off or of hurting yourself in some way: not at all Total score: 8 Depression Screening Interpretation: Positive Depression Screening Follow-up: Existing condition and In treatment Depression Screening Done: Yes 40987 - PHQ-9 Billing: Yes Source: Developed by Drs. Tong Garcia, Sayda Moran, Rudy Lopez and colleagues, with an educational georgiana from [employer]. Review of Systems Const Denies poor appetite and Denies weakness Eyes Denies no additional complaints ENT Reports Normal hearing present, Denies dizziness, Denies nasal congestion, Denies tinnitus and Denies sore throat Card Denies chest pain, Denies syncope, Denies rapid heart rate and Denies dyspnea Resp Denies cough and Denies dyspnea GI Denies change in stool character, Reports constipation, Denies diarrhea, Denies nausea and Denies vomiting Denies urinary frequency, Denies difficulty voiding and Denies dysuria Neuro Reports Normal hearing present, Denies confusion, Denies dizziness, Denies syncope and Denies weakness Psych Denies confusion Physical Exam Vital Signs: Last Vital Signs Pulse 84 10/04/23 11:32 BP 130/68 10/04/23 11:32 Pulse Ox 99 10/04/23 11:32 Oxygen Delivery Method Room Air 10/04/23 11:32 Const General: No confusion Orientation/consciousness: No confusion HEENT Other: R impacted cerumen Head: Yes normocephalic Ears: external ears normal Face and sinus: Yes normal facial exam Mouth: moist mucous membranes Throat: Yes tonsils normal Eyes Conjunctivae: conjunctivae normal Pupils: Equal, round and reactive pupils present and Pupil accommodation reflex normal Direct Ophthalmoscopy: normal light reflex Neck Neck: No lymphadenopathy Thyroid: Thyroid normal Chest Chest palpation & inspection: normal inspection of the chest Resp Effort & Inspection: normal respiratory effort and no audible wheezes Auscultation: clear to auscultation bilaterally, no crackles, no wheezes and lung sounds not diminished Cardio Rate: regular rate Rhythm: regular rhythm Peripheral pulses: radial pulses present and dorsalis pedis present GI Palpation (GI): no masses Auscultation: normal bowel sounds and normoactive bowel sounds Rectal Exam - Female: deferred Skin General skin exam: no rashes or lesions noted Rashes: no rashes Neuro General: No confusion Cranial nerves: Yes Equal, round and reactive pupils present and Yes Normal hearing present Cognition (Neuro): normal cognition Gait exam (Neuro): Normal gait present Motor exam (neuro): 5/5 motor strength present throughout Deep tendon reflexes (DTR's): Right brachioradialis reflex intensity grade: 2+, Left brachioradialis reflex intensity grade: 2+, Right patellar reflex intensity grade: 2+ and Left patellar reflex intensity grade: 2+ Extrem General: No edema Assessment & Plan Assessment & Plan (1) Medicare annual wellness visit, subsequent: Code(s): Z00.00 - Encounter for general adult medical examination without abnormal findings Plan: Patient is advised to eat healthy, keep well hydrated, keep active and have adequate sleep. 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 Continue with present medication 2x a week couselling. (3) Hypercholesterolemia: Code(s): E78.00 - Pure hypercholesterolemia, unspecified Plan: Avoid fried foods, chicken skin, eggs, butter margarine, pastries and meat. Be it pork or beef they have a lot of cholesterol LDL goal of less than 130 and triglyceride of less than 1 (4) Obesity: Code(s): E66.9 - Obesity, unspecified Plan: Continue with diet and exercise (5) Impaired glucose tolerance: Code(s): R73.02 - Impaired glucose tolerance (oral) Plan: Decrease the amount of carbohydrate intake, pasta, bread, rice and potatoes are all sugar and that is aside from all the sweet stuff, remember that fruits are good but they are Sweet also. (6) Urinary retention with incomplete bladder emptying: Comment: Self cath Code(s): R33.9 - Retention of urine, unspecified Plan: self cath (7) Impacted cerumen of right ear: Code(s): H61.21 - Impacted cerumen, right ear Plan: will call for irrigation Orders: Orders Comprehensive Met. Panel 6 Months E78.00 - Pure hypercholesterolemia, unspecified Free T4 (Free Thyroxine) 6 Months E78.00 - Pure hypercholesterolemia, unspecified Thyroid Stimulating Hormone 6 Months E78.00 - Pure hypercholesterolemia, unspecified Complete Blood Count Auto Diff 6 Months E78.00 - Pure hypercholesterolemia, unspecified Lipid Panel 6 Months E78.00 - Pure hypercholesterolemia, unspecified Vitamin B12 and Folate 6 Months E78.00 - Pure hypercholesterolemia, unspecified Vitamin D 25-OH Total 6 Months E78.00 - Pure hypercholesterolemia, unspecified Hemoglobin A1c 6 Months R73.02 - Impaired glucose tolerance (oral) Quality Reporting (2019) Depression/Bipolar (159/160/161/177) PHQ-9: Total score: 8 Coding Level of Care Code Medicare Subsequent (G0439) Diagnoses Medicare annual wellness visit, subsequent Z00.00 Dysthymia F34.1 Hypercholesterolemia E78.00 Obesity E66.9 Impaired glucose tolerance R73.02 Urinary retention with incomplete bladder emptying R33.9 Impacted cerumen of right ear H61.21
[2023-10-04 11:32] VITALS: BP 130/68; PULSE 84; O2SAT 99
== END 2023-10-04 12:28 | disposition home or self-care (01) ==
PROVIDERS: PCP Internal Medicine; Visit Provider Internal Medicine
DX: Z00.00 Encounter for general adult medical examination without abnormal findings (principal); F34.1 Dysthymic disorder; E78.00 Pure hypercholesterolemia, unspecified; E66.9 Obesity, unspecified; R73.02 Impaired glucose tolerance (oral); R33.9 Retention of urine, unspecified; H61.21 Impacted cerumen, right ear
CPT/HCPCS: G0439

== ENCOUNTER 2023-10-11 10:37 | Outpatient (AMB) | payer MEDICARE, SELFPAY ==
--- NOTE | 2023-10-11 10:48 | MHC.OFFWIV ---
Intake Vital Signs 10/11/23 10:49 Height 5 ft 6 in BMI Reason not done Patient refused/unable BP 122/74 Blood Pressure Location Rt brachial Position Sitting Pulse 54 Pulse Source Pulse Oximeter Temp 98.3 F Temp Source Oral Pulse Oximetry (%) 98 Oxygen Delivery Method Room Air Intake Visit Reasons: EP Diarrhea Intake Note: pt c/o diarrhea. Ongoing for several months Patient Tobacco Use Status: Never used Tobacco Allergies lactose Allergy (Intermediate, Verified 10/11/23 10:48) Flatulence Do you need a note to return to daycare/school/sports/work: No HPI EP Diarrhea HPI Details This is a 72 year old female patient who presents to the [place] clinic today for c/o intermittent diarrhea for the last 2-3 months. She reports regular, soft bowel movements most days, however around 3 days per week, she has a sudden need to have a BM, and has watery diarrhea. At times she does not make it to the toilet in time. She denies any blood or mucus in the stool. She denies any recent travel or illness. Denies constipation, nausea, vomiting, dizziness, or abdominal pain. Denies any new meds or changes in diet. [facility] Medical History Tubular adenoma Hx of radiation therapy Lab test negative for COVID-19 virus Hx of sickle cell trait Depression Sleep apnea Elevated cholesterol Hx of cardiac murmur Obesity Incomplete emptying of bladder Wrist fracture, right Osteopenia Peripheral vascular disease Hypercholesterolemia History of breast cancer Dysthymia Surgical History H/O colonoscopy History of left mastectomy History of cataract surgery H/O foot surgery H/O breast reconstruction Family History Father Multiple myeloma Mother Hypertension Brain aneurysm Social History Housing: House Alcohol intake: never Patient Tobacco Use Status: Never used Tobacco e-Cigarette/Vaping Use: Never Used Second Hand Smoke Exposure: No service: No Current occupational status: employed Current occupational exposures/hazards: No Cognitive needs: No Hearing needs: No Vision needs: Yes Review of Systems Const All systems reviewed & are unremarkable except as noted in HPI and below Physical Exam Vital Signs: Last Vital Signs Temp 98.3 F 10/11/23 10:49 Pulse 54 10/11/23 10:49 BP 122/74 10/11/23 10:49 Pulse Ox 98 10/11/23 10:49 Oxygen Delivery Method Room Air 10/11/23 10:49 Const General: cooperative, healthy appearing, comfortable and no acute distress Limitations: no limitations Resp Effort & Inspection: normal respiratory effort Auscultation: clear to auscultation bilaterally Cardio Rate: regular rate Rhythm: regular rhythm GI Inspection: Yes normal to inspection Palpation (GI): Soft to palpation (nontender) and No hepatosplenomegaly present Auscultation: Hypoactive bowel sounds present Skin General skin exam: no rashes or lesions noted Extrem General: Yes no clubbing, cyanosis or edema Psych Appearance: grossly normal Mental Status: mental status grossly normal Speech and movement: Normal speech and movement present Assessment & Plan Assessment & Plan (1) Diarrhea: Code(s): R19.7 - Diarrhea, unspecified Qualifiers: Diarrhea type: unspecified type Qualified Code(s): R19.7 - Diarrhea, unspecified Plan: Intermittent watery diarrhea over the last several months. No red flag symptoms. She otherwise has normal, soft, regular BMs and I feel any Loperamide may cause constipation. This could be diet-related. I advised her to keep a food journal for at least a week to determine any trends in the episodes of diarrhea. She may benefit from a GI referral if this persists. I will request her PCP Dr. Chadwick review this visit and determine if he would like to refer. Patient is due for colonoscopy in 2024. Patient agrees to plan and will return to clinic if she develops any concerning symptoms such as increasing episodes, blood in stool, fever, or abdominal pain. Coding Level of Care Code Est Pt Level 4 (65710) Diagnoses Diarrhea, unspecified type R19.7 Diarrhea type: unspecified type
[2023-10-11 10:49] VITALS: BP 122/74; PULSE 54; TEMP 36.8; O2SAT 98
== END 2023-10-11 11:33 | disposition home or self-care (01) ==
PROVIDERS: PCP Internal Medicine; Visit Provider Nurse Practitioner Family
DX: R19.7 Diarrhea, unspecified (principal)
CPT/HCPCS: 99214

== ENCOUNTER 2023-10-16 15:28 | Outpatient (REF) | payer MEDICARE, SELFPAY ==
[2023-10-16 16:29] LABS: CDiff Gene PCR NEGATIVE (Negative)
[2023-10-16 16:34] LABS: Leukocytes Stool Qualitative NEGATIVE (NEGATIVE)
== END 2023-10-16 15:29 | disposition home or self-care (01) ==
LOC: HO.LNP 15:28
PROVIDERS: Visit Provider Internal Medicine
DX: R19.7 Diarrhea, unspecified (principal)
CPT/HCPCS: 87177; 87209; 87493; 89055

== ENCOUNTER 2023-11-27 13:41 | Outpatient (AMB) | payer MEDICARE, SELFPAY ==
--- NOTE | 2023-11-27 13:46 | MHC.PC.OV ---
Vital Signs 11/27/23 13:47 Height 5 ft 6 in Weight 227 lb BMI 36.6 BP 112/72 Blood Pressure Location Rt brachial Position Sitting Pulse 52 Pulse Source Pulse Oximeter Pulse Oximetry (%) 95 Oxygen Delivery Method Room Air Intake Visit Reasons: Ear Cleaning, RAST Allergen Form Intake Note: Patient is here to follow up on Ear cleaning and RAST Allergen form. Currency Exchange Specialist Required: No Direct Marketing Specialist: Not Required per policy Accompanied by: Self / Same As Patient Allergies lactose Allergy (Intermediate, Verified 11/27/23 13:47) Flatulence Tobacco use date assessed: 11/27/23 Fall risk assessment: No Falls in past year Last assessed Fall Risk: 11/27/23 Dental Screening Dental Screen Date: 05/31/23 HPI Ear Cleaning, RAST Allergen Form HPI Details 73-year-old obese female with a history of dysthymia hypercholesterolemia impaired glucose tolerance urinary retention and does self catheterization coming in for ear irrigation. Last seen for annual wellness in October 04 2023. Patient is up-to-date with colonoscopy mammogram and bone density. Review of the notes was in the Urgent Center October 10 for diarrhea. Patient has been referred to Gastroenterology and awaiting schedule January 2024. Meanwhile patient has ask for ENT referral. For allergies PFSH Medical History Tubular adenoma Hx of radiation therapy Lab test negative for COVID-19 virus Hx of sickle cell trait Depression Sleep apnea Elevated cholesterol Hx of cardiac murmur Obesity Incomplete emptying of bladder Wrist fracture, right Osteopenia Peripheral vascular disease Hypercholesterolemia History of breast cancer Dysthymia Surgical History H/O colonoscopy History of left mastectomy History of cataract surgery H/O foot surgery H/O breast reconstruction Family History Father Multiple myeloma Mother Hypertension Brain aneurysm Social History Housing: House Alcohol intake: never Patient Tobacco Use Status: Never used Tobacco e-Cigarette/Vaping Use: Never Used Second Hand Smoke Exposure: No service: No Current occupational status: retired Current occupational exposures/hazards: No Cognitive needs: No Hearing needs: No Vision needs: Yes Questionnaire Thrive Questionnaire Date Thrive assessed: 05/31/23 Are you currently unemployed and looking for a job?: No DAKOTA-7 AMB Questionnaire DAKOTA-7 Date DAKOTA - 7 assessed: 05/31/23 Source: Developed by Drs. Tong Garcia, Sayda Moran, Rudy Lopez and colleagues, with an educational georgiana from [employer]. Physical exam (Primary Care) Vital Signs: Last Vital Signs Pulse 52 11/27/23 13:47 BP 112/72 11/27/23 13:47 Pulse Ox 95 11/27/23 13:47 Oxygen Delivery Method Room Air 11/27/23 13:47 BMI result Body Mass Index 36.6 Tobacco/Smoking Status: Tobacco use Status Tobacco use date assessed 11/27/23 11/27/23 13:55 Patient Tobacco Use Status Never used Tobacco 11/27/23 13:55 e-Cigarette/Vaping Use Never Used 11/27/23 13:55 Thrive Assessment: Date of Thrive Assessment Date Thrive assessed 05/31/23 11/27/23 13:55 Const General: alert; No acute distress Eyes Conjunctivae: conjunctivae normal Resp Auscultation: clear to auscultation bilaterally Cardio Rate: regular rate Rhythm: regular rhythm GI Inspection: Yes normal to inspection Extrem General: Yes normal to inspection and No edema Coding Level of Care Code Est Pt Level 4 (46157) Diagnoses Diarrhea, unspecified type R19.7 Diarrhea type: unspecified type Impacted cerumen of right ear H61.21 Allergy, initial encounter T78.40XA Encounter type: initial encounter Foot callus L84 Assessment & Plan Assessment & Plan (1) Diarrhea: Code(s): R19.7 - Diarrhea, unspecified Category: Medical Qualifiers: Diarrhea type: unspecified type Qualified Code(s): R19.7 - Diarrhea, unspecified Plan: Patient has been referred to Gastroenterology. Stool testing preliminary were negative (2) Impacted cerumen of right ear: Code(s): H61.21 - Impacted cerumen, right ear Category: Medical Plan: Reassurance with patient that the ears are clean (3) Allergy: Code(s): T78.40XA - Allergy, unspecified, initial encounter Category: Medical Qualifiers: Encounter type: initial encounter Qualified Code(s): T78.40XA - Allergy, unspecified, initial encounter Plan: discussed about allergy problem and discussed about allergy and declined referral for now (4) Foot callus: Code(s): L84 - Corns and callosities Category: Medical Plan: Referral to seam rubber done Orders: Orders Rast Allergen Today T78.40XA - Allergy, unspecified, initial encounter Referrals Podiatry Referral L84 - Corns and callosities
[2023-11-27 13:47] VITALS: BP 112/72; PULSE 52; O2SAT 95; BMI 36.6
== END 2023-11-27 14:17 | disposition home or self-care (01) ==
PROVIDERS: PCP Internal Medicine; Visit Provider Internal Medicine
DX: R19.7 Diarrhea, unspecified (principal); H61.21 Impacted cerumen, right ear; T78.40XA Allergy, unspecified, initial encounter; L84 Corns and callosities

== ENCOUNTER 2024-01-24 13:01 | Outpatient (AMB) | payer MEDICARE, SELFPAY ==
[2024-01-24 13:05] VITALS: BP 134/64; PULSE 46; O2SAT 99; BMI 35.8
--- NOTE | 2024-01-24 13:05 | MHC.OFFVIS ---
Vital Signs 01/24/24 13:05 Height 5 ft 6 in Weight 222 lb BMI 35.8 BP 134/64 Blood Pressure Location Rt brachial Position Sitting Pulse 46 L Pulse Source Pulse Oximeter Pulse Oximetry (%) 99 Oxygen Delivery Method Room Air Intake Visit Reasons: Kechi screening & Diarrhea Intake Note: Marcella presents in office today for a scheduled initial assessment/consult CC; Any significant sx or concerns? Pt has been having intermittent episodes of diarrhea, cramping but no significant pain. Pt has been taking probiotics per PCP. Pt also tried metamucil but stopped because it got worse. Pt has frequent BM soon after eating. Prior hx of colo via [facility] x5 years ago ([place]). Hx of TA. Any labs or diagnostics since last visit? ?RAST done as of November 2023. Pharmacy verified? [facility] for same day. 90 day supplies [place]. [employer] Required: No Allergies lactose Allergy (Intermediate, Verified 01/24/24 13:06) Flatulence HPI HPI Kechi screening & Diarrhea: Details: Last colonoscopy December of 2019 Diagnosis Colon, 60 cm, polypectomy: Tubular adenoma; no high grade dysplasia or carcinoma seen. PLAN AND CURRENT RECOMMENDATIONS: Repeat asymptomatic screening in this patient will be 5-7 years depending on histology of the polyp. Assessment & Plan Assessment & Plan (1) Tubular adenoma: Comment: 69-year-old female s/p breast cancer x2 will, personal history of colon adenomas follows up after recent colonoscopy. Colonoscopy reveals adenoma, she will repeat asymptomatic colonoscopy in 5 years. She has no GI complaints. She is encouraged to call was questions or concerns Code(s): D36.9 - Benign neoplasm, unspecified site Category: Medical Patient Instructions: A pleasant 69-year-old female s/p breast cancer, personal history of colon adenomas follows up after recent colonoscopy. Colonoscopy did reveal adenoma. She will repeat asymptomatic screening colonoscopy in 5 years, 2024. A reminder will be placed as well she was encouraged to keep track as well. She has no GI complaints at this time. She may call with questions or concerns. We appreciate the opportunity to assist in the care this pleasant patient. TODAY'S VISIT: Patient is here today for follow-up and to discuss going for colonoscopy. Colonoscopy not do till December of 2024. Currently were booking for April. Patient will wait and we will discuss her current symptoms that she has been dealing with in the past few months. Postprandial abdominal bloating with loose stools. Patient also admits that occasionally she will be constipated. Denies any melena, hematochezia, unintentional weight loss or ribbon like stools. Patient denies any dyspepsia, dysphagia or odynophagia. Occasional acid reflux depending on what she eats. Patient reports that sometimes depending on what she eats she will have loose stools almost immediately after she eats. Sometimes unable to make it to the bathroom. No known family history of inflammatory bowel disease. Patient is allergic to lactose. Patient denies any other GI concerning symptoms. [facility] Medical History Tubular adenoma Hx of radiation therapy Lab test negative for COVID-19 virus Hx of sickle cell trait Depression Sleep apnea Elevated cholesterol Hx of cardiac murmur Obesity Incomplete emptying of bladder Wrist fracture, right Osteopenia Peripheral vascular disease Hypercholesterolemia History of breast cancer Dysthymia Surgical History H/O colonoscopy History of left mastectomy History of cataract surgery H/O foot surgery H/O breast reconstruction Family History Father Multiple myeloma Mother Hypertension Brain aneurysm Social History Housing: House Alcohol intake: never Patient Tobacco Use Status: Never used Tobacco e-Cigarette/Vaping Use: Never Used Second Hand Smoke Exposure: No service: No Current occupational status: retired Current occupational exposures/hazards: No Cognitive needs: No Hearing needs: No Vision needs: Yes Review of Systems Const Denies weight gain and Denies weight loss ENT Reports no additional complaints, Denies dysphagia and Denies odynophagia Card Reports no additional complaints Resp Reports no additional complaints GI Denies abdominal pain, Denies belching, Denies melena, Denies bloating, Denies change in bowel habits, Reports constipation, Denies dysphagia, Denies excessive flatus, Denies dyspepsia, Denies heartburn, Denies diarrhea, Reports loose stools, Denies nausea, Denies odynophagia and Denies vomiting Reports no additional complaints Musc Reports no additional complaints Neuro Reports no additional complaints Psych Reports no additional complaints Endo Reports no additional complaints Physical Exam Vital Signs: Last Vital Signs Pulse 46 L 01/24/24 13:05 BP 134/64 01/24/24 13:05 Pulse Ox 99 01/24/24 13:05 Oxygen Delivery Method Room Air 01/24/24 13:05 BMI result Body Mass Index 35.8 Const General: healthy appearing, no acute distress and well developed Nutritional Appearance: well nourished Orientation/consciousness: patient oriented x3 Resp Effort & Inspection: normal respiratory effort, able to speak in complete sentences, no tracheal deviation and symmetric chest movement Auscultation: clear to auscultation bilaterally Cardio Rate: regular rate GI Inspection: Yes normal to inspection and No distended Palpation (GI): Soft to palpation, not firm, nontender and No hepatosplenomegaly present Auscultation: normal bowel sounds General: Yes no CVA tenderness Back/Spine/Pelvis Back: no CVA tenderness Skin General skin exam: elasticity normal, turgor normal and dry skin Neuro General: patient oriented x3 Psych Appearance: grossly normal Mental Status: mental status grossly normal Assessment & Plan Assessment & Plan (1) Tubular adenoma: Code(s): D36.9 - Benign neoplasm, unspecified site Category: Medical (2) Irritable bowel syndrome with both constipation and diarrhea: Code(s): K58.2 - Mixed irritable bowel syndrome (3) Postprandial abdominal bloating: Code(s): R14.0 - Abdominal distension (gaseous) (4) Postprandial diarrhea: Code(s): K52.9 - Noninfective gastroenteritis and colitis, unspecified Plan Will order CRP if positive will check stool calprotectin. Will check vitamin B12, folate and vitamin-D levels. Patient will return in 3 months and if she continues to have symptoms will send her for colonoscopy earlier. Currently patient does not have any melena, hematochezia, unintentional weight loss. Denies any family history of CRC. Patient will increase fiber intake may take probiotics. Increase fluid intake and activity to promote better bowel motility. Discussed with patient low FODMAP diet. List of food recommended as well as list of food to avoid given to patient. Patient is agreeable to current plan of care and verbalizes understanding of instructions. She was given the opportunity to ask questions and all questions answered. Thank you for allowing me to participate in her care Orders: Orders Vitamin B12 and Folate Today R19.7 - Diarrhea, unspecified C Reactive Protein Today K58.9 - Irritable bowel syndrome, unspecified Vitamin D 25-OH (D2 and D3) Today E55.9 - Vitamin D deficiency, unspecified Coding Level of Care Code New Pt Level 4 (90326) Diagnoses Tubular adenoma D36.9 Irritable bowel syndrome with both constipation and diarrhea K58.2 Postprandial abdominal bloating R14.0 Postprandial diarrhea K52.9 Time Spent (min) 45 Comment 30 minutes spent with patient and additional 15 minutes spent reviewing her records
--- OUTSIDE RECORDS SUMMARY | 2024-01-29 09:03 | XMS_ITS ---
Author Organization [facility] Address [address] [place] [address] Care Team Providers Care Velvet Weaver Name Role Phone Elidia Chadwick Primary Care Provider Jeanne Sheridan Unavailable [phone] Allergies No Known Allergies REASON FOR VISIT PCP: 10/2023, Skin problem(s), Wart(s) Medications Medication SIG (Take, Route, Fr equency, Duration) Notes Start Date End Date Status Citalopram Hydrobromide Active Iron Active Simvastatin Active Multivitamin Active Ammonium Lactate 12 % 1 application Exte rnally to affected areas of skin to feet except for between the toes Twice a day for 30 days Act howard Vitamin A Active Loratadine Active Vitamin D3 Active Social History Tobacco Use: Social History Observation Description Date Details (start date - stop date) Never Smoker NA - NA Tobacco Use/Smoking Question Answer Notes Are you a: nonsmoker Additional Findings: Tobacco Non-User Current no n-smoker Alcohol Screen Question Answer Notes Did you have a drink containing alcohol in the p ast year? No Points 0 Interpretation Negative Tobacco use other than smoking: Question Answer Notes Are you an other tobacco user? No Problems Problem Type SNOMED Code ICD Code Onset Dates Problem Status W/U Status Risk Notes Problem Plantar wart (99609356) Plantar wart (B07.0) Active confirmed Vital Signs Height 5 ft 6 in in 12/18/2023 Weight 222 lbs 12/18/2023 BMI 35.83 kg/m2 12/18/2023 Procedures Procedure Date Ordered Date Performed Result Body Sit e 18440-Phxo Destruction, 1-14 12/18/2023 N/A Encounters Encounter Location Date Provider Diagnosis [facility] [address] [place] [address] 12/18/2023 Jeanne Walleraker Xerosis of skin L85.3 ; Left foot pain M79.672 and Plantar wart B07.0 Assessments Encounter Date Diagnosis (ICD Code) Assessment Notes Treatment Notes Treatment Clinical Notes Section Notes 12/18/2023 Xerosis of skin (ICD-10 - L85.3) 12/18/2023 Left foot pain (ICD-10 - M79.672) 12/18/2023 Plantar wart (ICD-10 - B07.0) Plan Of Treatment Medication Medication Name Sig Start Date Stop Date Notes Ammonium Lactate 12 % 1 application Exte rnally to affected areas of skin to feet except for between the toes Twice a day for 30 days Pending Test Test Name Order Date 64092-Vetn Destruction, 1-14 12/18/2023 Next Appt Details Follow Up: 6 Weeks, Reason: Provider Name:Jeanne main, 02/11/2024 11:15:00 AM, [address], [address], [place], [address], Procedure Notes * Category Sub-Category Detail Notes Wart Treatment Procedure Verrucae were de brided to pin-point bleeding margins with sterile 15 surgical blade, silver nitrate chemocautery applied, recomm. immune-boosting meds such as zinc, recomm. follow up with topical chemosurgical agents, Pt defers any other forms of tx - 86580 Progress Notes * Marcella PINZON LDOB:1950 (73 yo F)Acc No.[id number]:12/18/2023 Progress Notes Patient:?Jeromy Marcella Bryant Provider:?Jeanne Cope DPM :1950???Age:73 Y???Sex:Female D ate:12/18/2023 Address:[address] [place] [address] [facility] Pcp:Elidia Chadwick Subjective: * Chief Complaints: * ???PCP: 10/2023Skin problem(s )Wart(s) * HPI: ???Skin problems:?Pt States PCP Visit: ?DATE?02/19/2023 ?Nature:?dryness , scaling.?Location:?B/L .?Duration:?several days.?Course:?worse.? * ROS:?General/Constitutional:?Nausea?denies.?Vomiting?denies.?Hunger Thirst?denies.?Loss appetite?denies.?Chills?denies.?Fatigue?denies.?Fever?denies.?Night Sweats?denies.?Unexplained weight loss?denies.?Unexplained weight gain?denies.?HEENTM:?Dentures?denies.?Dizziness?denies.?Glasses/contacts?denies.?Retinopathy?de nies.?Blurred/double vision?denies.?TMJ?denies.?Discharge/drainage?denies.?Implants?denies.?Sore throat?denies.?Dental implants?denies.?Hard of hearing ?denies.?Difficulty chewing/swallowing/speaking?denies.?Nose bleeds?denies.?Sore mouth?denies.?Respiratory:?On Oxygen?denies.?Pneumonia/pleurisy?denies.?Bronchitis?denies.?Emphysema?denies.?C oughing?denies.?Cough blood?denies.?Shortness of breath?denies.?Wheezing?denies.?Cardiovascular:?Pacemaker?denies.?MVP?denies.?WPW?denies.?CHF?denies.?Heart attack?denies.?Septal defect?denies.?Rapid beat?denies.?Chest pain ?denies.?Atrial Fib.?denies.?Murmur/Palpitations?admits.?Gastrointestinal:?Hemorrhoids?denies.?Stomach/Abdominal pain?denies.?Dark blood stool?denies.?Irritable bowel ?denies.?Constipation?denies.?Diarrhea?denies.?Hematology:?Swelling?denies.?Clots?denies.?Varicose Veins?denies.?Bruising?denies.?Bleeding problem?denies.?Genitourinary:?Blood urine?denies.?Frequent/Painfu/urination/bladder control?denies.?Kidney stones?denies.?Infection (UTI)?denies.?Nephropathy?denies.?sex trans dis (STD)?denies.?Prostate?denies.?Musculoskeletal:?Hammertoes?denies.?Bunions?denies.?Back Pain?denies.?Muscle Cramps/ Resting?denies.?Muscle cramps / walking?denies.?Generalized aches and pains?denies.?Weakness?denies.?Integ.:?[place]?denies.?Scars?denies.?Corns/calluses?admits.?Ingrown nails?denies.?Painful nails?denies.?Open Sores?denies.?Rashes?denies.?Neurologic:?Difficulty sleeping?denies.?Brain disorder?denies.?Numbness?denies.?Balance trouble?denies.?Confusion?denies.?Fainting/blackouts?denies.?Tingling?denies.?Tr emors?denies.? * Medical History:? * Surgical History:?lumpectomy 1992foot surgery 1994/1999mastectomy 2011 * Hospitalization/Major Diagno stic Procedure:?Denies Past Hospitalization * Family History:?Mother: dece ased, arthritis, brain aneurysm.?Father: , Multiple myeloma.?Maternal Grand Mother: cancer.?Siblings: diabetes, arthritis.? * Social History:?Tobacco Use:?Tobacco Use/Smoking?Are you a:?nonsmoker ?Additional Findings: Tobacco Non-User?Current non-smoker ?Tobacco use other than smoking?Are you an other tobacco user??No ???Drugs/Alcohol:?Drugs?Have you used drugs other than those for medical reasons in the past 12 months??No ?Alcohol Screen?Did you have a drink containing alcohol in the past year??No ?Points?0 ?Interpretation?Negative ???Miscellaneous:?no Caffeine. ?no Children. ?no Exercise. ?Marital status: single. ?Occupation: semi retired. * Medications:?TakingSimvastat in Citalopram Hydrobromide Iron Multivitamin Loratadine Vitamin D3 Vitamin A Medication List reviewed and reconciled with the patientTaking Simvastatin Taking Citalopram Hydrobromide Taking Iron Taking Multivitamin Taking Loratadine Taking Vitamin D3 Taking Vitamin A Medication List reviewed and reconciled with the patient * Allergies:?N.K.D.A.yes[Aller gies Verified] Objective: * Vitals:?Ht: 5 ft 6 in, Wt:22 2, BMI:35.83, Shoe size: 10.5-11, Ht-cm: 167.64 cm, Wt-k.7 kg. * Examination: ???General Examination: ?GENERAL APPEARANCE:?Reveals a pleasant, alert, well-nourished, well- developed, well hydrated individual, who demonstrates proper attention to hygiene/body habitus, and is in no acute distress, Pt serves as own?historian for office visit today.?ORIENTED:?person, place, and time.?Dermatologic: ?SKIN FINDINGS:?Skin shows sign(s) of, dryness, scaling, in a stocking fashion, no fissure(s) present, B/L?.?VERRUCA:?Reveals a Single , multi-loculated , mosaic-patterned, round, raised, flat-topped, petechial bleeding papule(s), with cauliflower appearance and interruption of skin lines, pain to lateral compression, and size estimated at 30 mm diameter, plantar forefoot, LEFT.?Neurological: ?SENSORY:?Neurological exam reveals intact sensorium, pain sensation normal, vibration sensation intact, pinprick sensation is normal in the lower extremities, Pt denies, anesthesia, burning, paresthesia, tingling, B/L.?DEEP TENDON REFLEXES:?Achilles, 2/4, B/L.?Vascular: ?DP PULSES(B):?2/4, B/L.?PT PULSES(B):?2/4, B/L.?CAPILLARY FILL TIME:?immediate, all digits, B/L.?TROPHIC CONDITION-TEXTURE/ELASTICITY/TURGOR/HAIR GROWTH(B):?normal, B/L.?TEMPERTURE GRADIENT(C):?warm to cool, proximal to distal, B/L.?PIGMENTATION:?normal, B/L.?EDEMA(C):?absent, B/L.?Orthopedic: ?MUSCLE STRENGTH:?5/5 all groups in a symmetrical fashion , B/L.? Assessment: * Assessment: 1.?Xerosis of skin - L85.3, Acute problem, Uncomplicated (3),Rx Management (4)?2.?Left foot pain - M79.672?3.?Plantar wart - B07.0 (Primary)? Plan: * Treatment: 2.?Xerosis of skin? Start Ammonium Lactate Cream, 12 %, 1 application, Externally to affected areas of skin to feet except for between the toes, Twice a day, 30 days, 140, Refills 2.?? * Procedures:?Wart Treatment:?Procedure?Verrucae were debrided to pin-point bleeding margins with sterile 15 surgical blade, silver nitrate chemocautery applied, recomm. immune-boosting meds such as zinc, recomm. follow up with topical chemosurgical agents, Pt defers any other forms of tx - 26569.? * Procedure Codes:?14331 Frank Cao, 1-14, Modifiers: XS * Preventive Medicine:? ??Counseling:?Discussion:?-13: Office or other outpatient visit for the evaluation and management of an established patient, which required a medically appropriate history and/or examination and LOW level of DECISION MAKING for: 1 STABLE ACUTE UNCOMPLICATED PROBLEM, 2 OR MORE MINOR PROBLEMS, OR 1 STABLE CHRONIC PROBLEM, THAT POSE(S) A LOW RISK FOR MORBIDITY/MORTALITY. The visit on the day of the encounter encompassed interpreting the data and educating the patient as to the nature of their condition, treatment options available according to their individual PMH, meds, allergies, and overall health/living conditions, as well as any potential risks or complications that may occur from a failure to adhere to, and participate in, the recommended course of therapy. The discussion included a complete verbal, and/or written explanation of the examination results, any x-rays taken, the proposed diagnosis, and outline of the treatment plan. A schedule for future care needs was also explained. The patient verbalized an understanding of the instructions at this time and agreed to be an active participant in their treatment. If the patient should think of any questions or concerns after the visit, I have encouraged the patient to call the office.?Xerosis:?The patient was counseled on the diagnosis, potential etiologies, and treatment options for their skin condition. We discussed the risks and benefits of each option from performing no treatment, to utilizing OTC topical skin creams/ointments, to utilizing prescription topical creams/ointments, to utilizing customized compounded topical medications and use of nocturnal occlusion with any/all previously detailed therapies. We discussed the advantages and disadvantages of each possible treatment and importance for adherence to all the recommended therapies for optimum success and avoid potential complications such as open sore/infection/possible hospitalization. We discussed the potential effectiveness of each topical preparation as well as each ones possible side effects and/or patient medication interactions. Patient questions re: use, dosage, successful outcomes, and application consistency were reviewed and the patient verbalized that all answers were clearly understood. The patient has decided to apply Rx skin creams to their feet save the interspaces while paying special attention to the heels. Such was sent to their pharmacy at the time of visit.? * Follow Up:?6 Weeks * Images: * Sign off status: Completed true * Provider:?Jeanne Cope DPM Date:?1 Generated for Zoila li/Heidi/Johnransmitting on:?01/29/2024 09:02 AM EST History and Physical Notes * HPI (History of Present Illness) Category Sub-Category Detail Notes Category Not es Skin problems Nature: dryness , scaling Location: B/L Duration: several days Course: worse Pt States PCP Visit: DATE: 02/19/2023 Examination Category Sub-Category Detail Notes Category Not es Neurological SENSORY: Neurological exa m reveals intact sensorium, pain sensation normal, vibration sensation intact, pinprick sensation is normal in the lower extremities, Pt denies, anesthesia, burning, paresthesia, tingling, B/L DEEP TENDON REFLEXES: Achilles, 2/4, B/L Dermatologic SKIN FINDINGS: Skin shows sign( s) of, dryness, scaling, in a stocking fashion, no fissure(s) present, B/L VERRUCA: Reveals a Single , m ulti-loculated , mosaic-patterned, round, raised, flat-topped, petechial bleeding papule(s), with cauliflower appearance and interruption of skin lines, pain to lateral compression, and size estimated at 30 mm diameter, plantar forefoot, LEFT Orthopedic MUSCLE STRENGTH: 5/5 all groups in a symm etrical fashion , B/L General Examination GENERAL APPEARANCE: Reveals a pleasant, alert, well- nourished, well-developed, well hydrated individual, who demonstrates proper attention to hygiene/body habitus, and is in no acute distress, Pt serves as own historian for office visit today ORIENTED: person, place, and t siddharth Vascular DP PULSES(B): 2/4, B/L PT PULSES(B): 2/4, B/L CAPILLARY FILL TIME: immediate, all digi ts, B/L TEMPERTURE GRADIENT(C): warm to cool, pr oximal to distal, B/L TROPHIC CONDITION-TEXTURE/ELASTICITY/TURGOR/HAIR GROWTH(B): normal, B/L EDEMA(C): absent, B/L PIGMENTATION: normal, B/L
--- OUTSIDE RECORDS SUMMARY | 2024-01-29 09:03 | XMS_ITS | Patient Health Record ---
Author Organization [facility] Address [address] [place] [address] Care Team Providers Care Tetryl Blender Operator Name Role Phone Elidia Chadwick Primary Care Provider Jeanne Sheridan Unavailable [phone] Allergies No Known Allergies Reason For Referral No Information Medications Medication SIG (Take, Route, Fr equency, Duration) Notes Start Date End Date Status Iron Active Citalopram Hydrobromide Active Simvastatin Active Vitamin A Active Vitamin D3 Active Loratadine Active Multivitamin Active Ammonium Lactate 12 % 1 application Exte rnally to affected areas of skin to feet except for between the toes Twice a day for 30 days Act howard Social History Tobacco Use: Social History Observation [...] W/U Status Risk Notes Problem Plantar wart (42456361) Plantar wart (B07.0) Active confirmed Vital Signs Blood pressure diastolic 70 mm Hg 01/13/2024 Height 5ft6in in 01/13/2024 Blood pressure systolic 110 mm Hg 01/13/2024 Weight 222 lbs 01/13/2024 BMI 35.83 kg/m2 01/13/2024 Procedures Procedure Date Ordered Date Performed Result Body Sit e 46351-Nrfw Destruction, 1-14 12/18/2023 N/A 93554-Byya Destruction, 1-14 01/13/2024 N/A Encounters Encounter Location Date Provider Diagnosis [address] [address] 12/18/2023 Jeanne Prisca Xerosis of skin L85.3 ; Left foot pain M79.672 and Plantar wart B07.[address] [address] 01/13/2024 Jeanne Cope Xerosis of skin L85.3 ; Left foot pain M79.672 and Plantar wart B07.[address] [address] 12/16/2023 Jeanne Cope [facility] [address] [place] [address] 01/10/2024 Jeanne Cope [address] [address] 12/03/2023 Jeanne Cope Assessments Encounter Date Diagnosis (ICD Code) Assessment Notes Treatment Notes Treatment Clinical Notes Section Notes 12/18/2023 Xerosis of skin (ICD-10 - L85.3) 01/13/2024 Xerosis of skin (ICD-10 - L85.3) 01/13/2024 Left foot pain (ICD-10 - M79.672) 12/18/2023 Left foot pain (ICD-10 - M79.672) 01/13/2024 Plantar wart (ICD-10 - B07.0) 12/18/2023 Plantar wart (ICD-10 - B07.0) Plan Of Treatment Pending Test Test Name Order Date [id number]-Qqbc Destruction, 1-14 12/18/2023 57914-Vkct Destruction, -01/13/2024 Next Appt Details Provider Name:Jeanne Dennison etelvina, 02/11/2024 11:15:00 AM, [address] [address], [place], [address], Insurance Providers Payer Name Payer Address Payer Phone Subscriber Number Group Number Insured Name Patient Relationship to Insured Coverage Start Date Coverage End Date Medicare National [employer] [address] [place] [address] [id number] Marcella Pinzon Self - patient is the insured 8 [employer] [address] [place] [address] [id number] Marcella Pinzon Self - patient is the insured Medical (General) History Medical History History ICD Code Arthritis CAD (Cholesterol) Cancer Cataracts Depression Sickle cell trait precancerous polyps Surgical History Surgery Date(Month/Year) lumpectomy 1991 foot surgery mastectomy 2011
--- OUTSIDE RECORDS SUMMARY | 2024-01-29 09:03 | XMS_ITS ---
Author Organization [facility] Address [address] [place] [address] Care Team Providers Care Traffic Agent Name Role Phone Elidia Chadwick Primary Care Provider Jeanne Sheridan Unavailable [phone] Allergies No Known Allergies REASON FOR VISIT Skin problem(s), Wart(s) Medications Medication SIG (Take, Route, Fr equency, Duration) Notes Start Date End Date Status Iron Active Citalopram Hydrobromide Active Simvastatin Active Vitamin A Active Ammonium Lactate 12 % 1 application Exte rnally to affected areas of skin to feet except for between the toes Twice a day for 30 days Act howard Vitamin D3 Active Loratadine Active Multivitamin Active Social History Tobacco Use: Social History Observation Description Date Details (start date - stop date) Never Smoker NA - NA Tobacco Use/Smoking Question Answer Notes Are you a: nonsmoker Additional Findings: Tobacco Non-User Current no n-smoker Tobacco use other than smoking: Question Answer Notes Are you an other tobacco user? No Vital Signs Height 5ft6in in 01/13/2024 Weight 222 lbs 01/13/2024 BMI 35.83 kg/m2 01/13/2024 Blood pressure systolic 110 mm Hg 01/13/20 24 Blood pressure diastolic 70 mm Hg 024 Procedures Procedure Date Ordered Date Performed Result Body Sit e 79194-Dccp Destruction, 1-14 01/13/2024 N/A Encounters Encounter Location Date Provider Diagnosis [facility] [address] [place] [address] 01/13/2024 Jeanne Cope Xerosis of skin L85.3 ; Left foot pain M79.672 and Plantar wart B07.0 Assessments Encounter Date Diagnosis (ICD Code) Assessment Notes Treatment Notes Treatment Clinical Notes Section Notes 01/13/2024 Xerosis of skin (ICD-10 - L85.3) 01/13/2024 Left foot pain (ICD-10 - M79.672) 01/13/2024 Plantar wart (ICD-10 - B07.0) Plan Of Treatment Pending Test Test Name Order Date 34974-Wata Destruction, 1-14 01/13/2024 Next Appt Details Follow Up: 6 Weeks, Reason: Provider Name:Jeanne Dennison etelvina, 02/11/2024 11:15:00 AM, [address] [facility], [address], [place], [address], Procedure Notes * Category Sub-Category Detail Notes Wart Treatment Procedure Verrucae were de brided to pin-point bleeding margins with sterile 15 surgical blade, silver nitrate chemocautery applied, recomm. immune-boosting meds such as zinc, recomm. follow up with topical chemosurgical agents, Pt defers any other forms of tx - 21194 Progress Notes * Marcella PINZON LDOB:1950 (73 yo F)Acc No.[id number]:01/13/2024 Progress Notes Patient:?Marcella PINZON Provider:?Jeanne Cope DPM :1950???Age:73 Y???Sex:Female D ate:01/13/2024 Address[facility] [place], [place] [address] Pcp:Elidia Chadwick Subjective: * Chief Complaints: * ???Skin problem(s)Wart(s) * HPI: ???Skin problems:?Pt States PCP Visit: ?DATE?10/30/2023 ?Nature:?dryness, scaling.?Course:?improved, at _90_ %.?Treatments:?medication ( AM Lactin ), states adherence to recommended treatment application.? * ROS:?General/Constitutional:?Nausea?denies.?Vomiting?denies.?Hunger Thirst?denies.?Loss appetite?denies.?Chills?denies.?Fatigue?denies.?Fever?denies.?Night Sweats?denies.?Unexplained weight loss?denies.?Unexplained [...] than smoking?Are you an other tobacco user??No * Medications:?TakingSimvastat in Citalopram Hydrobromide Iron Multivitamin Loratadine Vitamin D3 Vitamin A Ammonium Lactate 12 % Cream 1 application Externally to affected areas of skin to feet except for between the toes Twice a day Medication List reviewed and reconciled with the patientTaking Simvastatin Taking Citalopram Hydrobromide Taking Iron Taking Multivitamin Taking Loratadine Taking Vitamin D3 Taking Vitamin A Taking Ammonium Lactate 12 % Cream 1 application Externally to affected areas of skin to feet except for between the toes Twice a day Medication List reviewed and reconciled with the patient * Allergies:?N.K.D.A.yes[Aller gies Verified] Objective: * Vitals:?Ht: 5ft6in, Wt:222, BMI:35.83, Shoe size: 10.5-11, BP:110/70mm Hg, Ht- cm: 167.64 cm, Wt-k.7 kg. * Examination: ???General Examination: ?GENERAL APPEARANCE:?Reveals a pleasant, alert, well-nourished, well- developed, well hydrated individual, who demonstrates proper attention to hygiene/body habitus, and is in no acute distress, Pt serves as own?historian for office visit today.?ORIENTED:?person, place, and time.?Dermatologic: ?SKIN FINDINGS:?Skin NO LONGER shows sign(s) of, dryness, scaling, in a stocking fashion, no fissure(s) present, B/L?.?VERRUCA:?Continues to reveal a Single , multi-loculated , mosaic- patterned, round, raised, flat-topped, petechial bleeding papule(s), with cauliflower appearance and interruption of skin lines, pain to lateral compression, and size estimated at 30 mm diameter, plantar forefoot, LEFT.?Neurological: ?SENSORY:?Neurological exam reveals intact sensorium, pain sensation normal, vibration sensation intact, pinprick sensation is normal in the lower extremities, Pt denies, anesthesia, burning, paresthesia, tingling, B/L.?DEEP TENDON REFLEXES:?Achilles, 2/, B/L.?Vascular: ?DP PULSES(B):?2, B/L.?PT PULSES(B):?2/4, B/L.?CAPILLARY FILL TIME:?immediate, all digits, B/L.?TROPHIC CONDITION-TEXTURE/ELASTICITY/TURGOR/HAIR GROWTH(B):?normal, B/L.?TEMPERTURE GRADIENT(C):?warm to cool, proximal to distal, B/L.?PIGMENTATION:?normal, B/L.?EDEMA(C):?absent, B/L.?Orthopedic: ?MUSCLE STRENGTH:?5/5 all groups in a symmetrical fashion , B/L.? Assessment: * Assessment: 1.?Xerosis of skin - L85.3?? ?Specify :Acute problem, Uncomplicated (3) Response to treatment - Improvement???2.?Left foot pain - M79.672???3.?Plantar wart - B07.0 (Primary)??? Plan: * Treatment: * Procedures:?Wart Treatment:?Procedure?Verrucae were debrided to pin-point bleeding margins with sterile 15 surgical blade, silver nitrate chemocautery applied, recomm. immune-boosting meds such as zinc, recomm. follow up with topical chemosurgical agents, Pt defers any other forms of tx - 28932.? * Procedure Codes:?38682 Wart Destruction, 1-14 * Preventive Medicine:? ??Counseling:?Discussion:?-12: Office or other outpatient visit for the evaluation and management of an established patient, which required a medically appropriate history and/or examination and STRAIGHTFORWARD level of MEDICAL DECISION MAKING, 1 SELF-LIMITED OR MINOR PROBLEM, MINIMAL- NO AMOUNT/COMPLEXITY OF DATA TO BE REVIEWED/ANALYZED, AND MINIMAL RISK OF COMPLICATION/MORBIDITY. The visit on the day of the [...] have encouraged the patient to call the office.?Xerosis:?Given recent successful results to treatment, The patient is to cont the rx cream as directed.? * Follow Up:?6 Weeks * Images: * Sign off status: Completed true * Provider:?Jeanne Cope DPM Date:?03/14/2023 Generated for Zoila li/Heidi/Kaylaitting on:?01/29/2024 09:02 AM EST History and Physical Notes * HPI (History of Present Illness) Category Sub-Category Detail Notes Category Not es Skin problems Nature: dryness, scaling Course: improved, at _90_ % Treatments: medication ( AM Lact in ), states adherence to recommended treatment application Pt States PCP Visit: DATE: 10/30/2023 Examination Category Sub-Category Detail Notes Category Not es Neurological SENSORY: Neurological exa m reveals intact sensorium, pain sensation normal, vibration sensation intact, pinprick sensation is normal in the lower extremities, Pt denies, anesthesia, burning, paresthesia, tingling, B/L DEEP TENDON REFLEXES: Achilles, 2/4, B/L Dermatologic SKIN FINDINGS: Skin NO LONGER s hows sign(s) of, dryness, scaling, in a stocking fashion, no fissure(s) present, B/L VERRUCA: Continues to reveal a Single , multi-loculated , mosaic-patterned, round, [...]
--- OUTSIDE RECORDS SUMMARY | 2024-01-29 09:03 | XMS_ITS ---
Author [facility] Address [address] [place] [address] Care Team Providers Care Sales And Business Development Manager Name Role Phone Elidia Chadwick Primary Care Provider Jeanne Sheridan [phone] REASON FOR VISIT Change 01/13/24 appt time Encounters Encounter Location Date [facility] [address] 01/10/2024 Jeanne Cope Plan Of Treatment Next Appt Details Provider Name:Jeanne main, 02/11/2024 11:15:00 AM, [address] [place] [address], [address], Progress Notes * Marcella PINZON LDOB:1950 (73 yo F)Acc No.[id number]:01/10/2024 Patient:?Marcella PINZNO :1950???Age:73 Y???Sex:Female [address], [address] * true * Date:? Generated for Printi ng/Faxing/eTransmitting on:?01/29/2024 09:02 AM EST
== END 2024-01-24 13:43 | disposition home or self-care (01) ==
PROVIDERS: PCP Internal Medicine; Visit Provider Nurse Practitioner Family
DX: K58.2 Mixed irritable bowel syndrome (principal); Z86.0100 Personal history of colon polyps, unspecified
CPT/HCPCS: 99204; 99214

== ENCOUNTER → 2024-01-24 13:01 | Outpatient (BNVA) | payer MEDICARE, SELFPAY | PROVIDERS: PCP Internal Medicine; Visit Provider Nurse Practitioner Family | DX: K58.2 Mixed irritable bowel syndrome (principal); K52.9 Noninfective gastroenteritis and colitis, unspecified; D36.9 Benign neoplasm, unspecified site; R14.0 Abdominal distension (gaseous); E55.9 Vitamin D deficiency, unspecified | CPT/HCPCS: 99202 ==

== ENCOUNTER 2024-01-27 16:43 | Outpatient (REF) | payer MEDICARE, SELFPAY ==
[2024-01-27 17:33] LABS: C Reactive Protein 1.79 mg/dL (< or = 0.50)
[2024-01-27 18:10] LABS: Vitamin B12 834 pg/mL (200-900)
[2024-01-31 13:09] LABS: Vitamin D 25-OH, D2 <4 ng/mL; Vitamin D 25-OH, D3 52 ng/mL; Vitamin D 25-OH, Total 52 ng/mL (30-100)
== END 2024-01-27 16:44 | disposition home or self-care (01) ==
LOC: HO.LAB 16:43
PROVIDERS: PCP Internal Medicine; Visit Provider Nurse Practitioner Family
DX: E55.9 Vitamin D deficiency, unspecified (principal); R19.7 Diarrhea, unspecified; K58.9 Irritable bowel syndrome, unspecified
CPT/HCPCS: 36415; 82306; 82607; 82746; 86140

== ENCOUNTER 2024-02-05 11:34 | Outpatient (REF) | payer MEDICARE, SELFPAY ==
--- OUTSIDE RECORDS SUMMARY | 2024-02-05 11:38 | XMS_ITS ---
Author Organization [facility] Address [address] [facility] [place] [address] Care Team Providers Care Meteorology Professor Name Role Phone Elidia Chadwick Primary Care Provider Jeanne Sheridan [phone] REASON FOR VISIT Change 01/13/24 appt time Encounters Encounter Location Date [facility] [address] 01/10/2024 Jeanne Cope Plan Of Treatment Next Appt Details Provider Name:Jeanne main, 02/11/2024 11:15:00 AM, [address] [place] [address], [address], Progress Notes * Marcella PINZON LDOB:1950 (73 yo F)Acc No.[id number]:01/10/2024 Patient:?Marcella PINZON :1950???Age:73 Y???Sex:Female [address], [address] * true * Date:? Generated for Printi ng/Faxing/eTransmitting on:?02/05/2024 11:38 AM EST
--- OUTSIDE RECORDS SUMMARY | 2024-02-05 11:38 | XMS_ITS ---
Author Organization [facility] Address [address] [place] [address] Care Team Providers Care Public Policy Coordinator Name Role Phone Elidia Chadwick Primary Care Provider Jeanne Sheridan Unavailable [phone] Allergies No Known Allergies REASON FOR VISIT [...] Ordered Date Performed Result Body Sit e 15098-Mutr Destruction, 1-14 01/13/2024 N/A Encounters Encounter Location Date Provider Diagnosis [facility] [address] [place] [address] 01/13/2024 Jeanne Cope Xerosis of skin L85.3 ; Left foot pain M79.672 and Plantar wart B07.0 Assessments Encounter Date Diagnosis (ICD Code) Assessment Notes Treatment Notes Treatment Clinical Notes Section Notes 01/13/2024 Xerosis of skin (ICD-10 - L85.3) 01/13/2024 Left foot pain (ICD-10 - M79.672) 01/13/2024 Plantar wart (ICD-10 - B07.0) Plan Of Treatment Pending Test Test Name Order Date 60213-Xwnb Destruction, 1-14 01/13/2024 Next Appt Details Follow Up: 6 Weeks, Reason: Provider Name:Jeanne Dennison etelvina, 02/11/2024 11:15:00 AM, [address] [facility], [address], [place], [address], Procedure Notes * Category Sub-Category Detail Notes Wart Treatment Procedure Verrucae were de brided to pin-point bleeding margins with sterile 15 surgical blade, silver nitrate chemocautery applied, recomm. immune-boosting meds such as zinc, recomm. follow up with topical chemosurgical agents, Pt defers any other forms of tx - 70370 Progress Notes * Marcella PINZON LDOB:1950 (73 yo F)Acc No.[id number]:01/13/2024 Progress Notes Patient:?Marcella PINZON Provider:?Jeanne Cope DPM :1950???Age:73 Y???Sex:Female D ate:01/13/2024 Address:[address] [place], [place] [address] Pcp:Elidia Chadwick Subjective: * Chief Complaints: * [...] defers any other forms of tx - 38377.? * Procedure Codes:?04036 Wart Destruction, 1-14 * Preventive Medicine:? ??Counseling:?Discussion:?-12: [...] Cope DPM Date:?03/14/2023 Generated for Zoila li/Heidi/Kaylaitting on:?02/05/2024 11:38 AM EST History and Physical Notes * [...] person, place, and t siddharth Vascular DP PULSES (B): 2/4, B/L PT PULSES (B): 2/4, B/L CAPILLARY FILL TIME: immediate, all digi ts, B/L TEMPERTURE GRADIENT (C): warm to cool, p roximal to distal, B/L TROPHIC CONDITION-TEXTURE/ELASTICITY/TURGOR/HAIR GROWTH (B): normal, B/L EDEMA (C): absent, B/L PIGMENTATION: normal, B/L
--- OUTSIDE RECORDS SUMMARY | 2024-02-05 11:38 | XMS_ITS | Patient Health Record ---
Author Organization [facility] Address [address] [facility] [place] [address] Care Team Providers Care Help Desk Operator Name Role Phone Elidia Chadwick Primary Care Provider Jeanne Sheridan Unavailable [phone] Allergies No Known Allergies Reason For Referral [...] W/U Status Risk Notes Problem Plantar wart (80409805) Plantar wart (B07.0) Active confirmed Vital Signs Blood pressure diastolic 70 mm Hg 01/13/2024 Height 5ft6in in 01/13/2024 Blood pressure systolic 110 mm Hg 01/13/2024 Weight 222 lbs 01/13/2024 BMI 35.83 kg/m2 01/13/2024 Procedures Procedure Date Ordered Date Performed Result Body Sit e 53962-Nyfe Destruction, 1-14 12/18/2023 N/A 90956-Ansm Destruction, 1-14 01/13/2024 N/A Encounters Encounter Location Date Provider Diagnosis [address] [address] 12/18/2023 Jeanne Prisca Xerosis of skin L85.3 ; Left foot pain M79.672 and Plantar wart B07.[address] [address] 01/13/2024 Jeanne Cope Xerosis of skin L85.3 ; Left foot pain M79.672 and Plantar wart B07.[address] [address] 12/16/2023 Jeanne Cope [facility] [address] [place] [address] 01/10/2024 Jeanne Cope [address] [address] 12/03/2023 Jeanne Cope Assessments Encounter Date Diagnosis [...] Treatment Pending Test Test Name Order Date 55187-Pzkx Destruction, 1-14 12/18/2023 25056-Tvtw Destruction, -01/13/2024 Next Appt Details Provider Name:Jeanne Dennison etelvina, 02/11/2024 11:15:00 AM, [address] [address], [place], [address], Insurance Providers Payer Name Payer Address Payer Phone Subscriber Number Group Number Insured Name Patient Relationship to Insured Coverage Start Date Coverage End Date Medicare National Govt Svcs Inc [address] [place] [address] [id number] Marcella Pinzon Self - patient is the insured 8 [employer] Blue Shield [address] [place] [address] [id number] Marcella Pinzon Self - patient is the insured Medical (General) History Medical History History ICD Code Arthritis CAD (Cholesterol) Cancer Cataracts Depression Sickle cell trait precancerous polyps Surgical History Surgery Date(Month/Year) lumpectomy 1991 foot surgery mastectomy 2011
--- OUTSIDE RECORDS SUMMARY | 2024-02-05 11:38 | XMS_ITS ---
Author Organization [facility] Address [address] [facility] [place] [address] Care Team Providers Care Undercar Specialist Name Role Phone Elidia Chadwick Primary Care Provider Jeanne Sheridan Unavailable [phone] Allergies No Known Allergies REASON FOR VISIT [...] W/U Status Risk Notes Problem Plantar wart (29843179) Plantar wart (B07.0) Active confirmed Vital Signs Height 5 ft 6 in in 12/18/2023 Weight 222 lbs 12/18/2023 BMI 35.83 kg/m2 12/18/2023 Procedures Procedure Date Ordered Date Performed Result Body Sit e 97701-Kakf Destruction, 1-14 12/18/2023 N/A Encounters Encounter Location Date Provider Diagnosis [facility] [place] [address] [place] [address] 12/18/2023 Jeanne Walleraker Xerosis of skin L85.3 [...] days Pending Test Test Name Order Date 75367-Yyni Destruction, 1-14 12/18/2023 Next Appt Details Follow Up: 6 Weeks, Reason: Provider Name:Jeanne main, 02/11/2024 11:15:00 AM, [address] [facility], [address], [place], [address], Procedure Notes * Category Sub-Category Detail Notes Wart Treatment Procedure Verrucae were de brided to pin-point bleeding margins with sterile 15 surgical blade, silver nitrate chemocautery applied, recomm. immune-boosting meds such as zinc, recomm. follow up with topical chemosurgical agents, Pt defers any other forms of tx - 53762 Progress Notes * Marcella PINZON LDOB:1950 (73 yo F)Acc No.[id number]:12/18/2023 Progress Notes Patient:?Jeromy Marcella Bryant Provider:?Jeanne Cope DPM :1950???Age:73 Y???Sex:Female D ate:12/18/2023 Address:[address] [place] [address] [facility] Pcp:Elidia Chadwick Subjective: * Chief Complaints: * [...] defers any other forms of tx - 69962.? * Procedure Codes:?91475 Frank Cao, 1-14, Modifiers: XS * Preventive [...] Cope DPM Date:?1 Generated for Zoila li/Heidi/Johnransmitting on:?02/05/2024 11:38 AM EST History and Physical [...]
[2024-02-11 19:58] LABS: Calprotectin, Fecal 19 mcg/g
== END 2024-02-05 11:35 | disposition home or self-care (01) ==
LOC: HO.LNP 11:34
PROVIDERS: Visit Provider Nurse Practitioner Family
DX: R15.9 Full incontinence of feces (principal)
CPT/HCPCS: 83993

== ENCOUNTER 2024-02-24 15:39 | Outpatient (REF) | payer MEDICARE, SELFPAY ==
--- OUTSIDE RECORDS SUMMARY | 2024-02-24 17:24 | XMS_ITS ---
Author Organization [facility] Address [address] [place] [address] Care Team Providers Care Tuberculosis Specialist Name Role Phone Elidia Chadwick Primary Care Provider Jeanne Sheridan [phone] Encounters Encounter Location Date [facility] [address] [address] 02/11/2024 Jeanne Cope Plan Of Treatment Next Appt Details Provider Name:Jeanne main, 03/20/2024 02:00:00 PM, [address] [place] [address], [address], Provider Name:Heike west, 04/24/2024 12:00:00 PM, [address] [place] [address], [address], Provider Name:Jeanne main, 06/08/2024 10:15:00 AM, [address] [place] [address], [address], Progress Notes * Marcella PINZON LDOB:1950 (73 yo F)Acc No.[id number]:02/11/2024 Progress Notes Patient:?KAILA Marcella Bryant Provider:?Jeanne Cope DPM :1950???Age:73 Y???Sex:Female D ate:02/11/2024 Address:[address] [place] [address] [place] Pcp:Elidia Chadwick Subjective: * Chief Complaints: * ??? * Medical History:? Objective: * Vitals:? Assessment: Plan: * Treatment: * Images: * The named appointment provid er may or may not be the originator of this progress note, and it is not deemed complete until electronically signed by the appointment provider. Sign off status: Pending * Provider:?Jeanne Cope DPM Date:?04/13/2023 Generated for Zoila li/Heidi/Kaylaitting on:?02/24/2024 05:23 PM EST
--- OUTSIDE RECORDS SUMMARY | 2024-02-24 17:24 | XMS_ITS | Patient Health Record ---
Author Organization [facility] Address [address] [facility] [place] [address] Care Team Providers Care Terrapin Fisher Name Role Phone Elidia Chadwick Primary Care Provider Jeanne Sheridan Unavailable [phone] Allergies No Known Allergies Reason For Referral No Information Medications Medication SIG (Take, Route, Fr equency, Duration) Notes Start Date End Date Status Ammonium Lactate 12 % 1 application Exte rnally to affected areas of skin to feet except for between the toes Twice a day for 30 days Act howard Vitamin A Active Vitamin D3 Active Loratadine Active Multivitamin Active Iron Active Citalopram Hydrobromide Active Simvastatin Active Social History Tobacco Use: Social History [...] W/U Status Risk Notes Problem Plantar wart (14342975) Plantar wart (B07.0) Active confirmed Vital Signs Blood pressure diastolic 70 mm Hg 02/13/2024 Height 5ft6in in 02/13/2024 Blood pressure systolic 110 mm Hg 02/13/2024 Weight 222 lbs 02/13/2024 BMI 35.83 kg/m2 02/13/2024 Procedures Procedure Date Ordered Date Performed Result Body Sit e 21603-Rnzn Destruction, 1-14 12/18/2023 N/A 25677-Pfeb Destruction, 1-01/13/2024 N/A 90318-Bxgn Destruction, 1-02/13/2024 N/A Encounters Encounter Location Date Provider Diagnosis [address] [address] 12/18/2023 Jeanne Cope Xerosis of skin L85.3 ; Left foot pain M79.672 and Plantar wart B07.[address] [address] 01/13/2024 Jeanne Cope Xerosis of skin L85.3 ; Left foot pain M79.672 and Plantar wart B07.[address] [address] 02/13/2024 Jeanne Cope Left foot pain M79.672 and Plantar wart B07.[address] [address] 12/16/2023 Jeanne Cope [facility] [address] [facility] [address] [place] [address] 01/10/2024 Jeanne Cope [address] [address] 02/11/2024 Jeanne Cope [address] [address] 12/03/2023 Jeanne Cope Assessments Encounter Date Diagnosis (ICD Code) Assessment Notes Treatment Notes Treatment Clinical Notes Section Notes 12/18/2023 Xerosis of skin (ICD-10 - L85.3) 01/13/2024 Xerosis of skin (ICD-10 - L85.3) 02/13/2024 Left foot pain (ICD-10 - M79.672) 01/13/2024 Left foot pain (ICD-10 - M79.672) 12/18/2023 Left foot pain (ICD-10 - M79.672) 01/13/2024 Plantar wart (ICD-10 - B07.0) 02/13/2024 Plantar wart (ICD-10 - B07.0) 12/18/2023 Plantar wart (ICD-10 - B07.0) Plan Of Treatment Pending Test Test Name Order Date 83268-Idvs Destruction, -12/18/2023 74864-Yvvu Destruction, -01/13/2024 51061-Selk Destruction, -14 02/13/2024 Next Appt Details Provider Name:Jeanne Dennison etelvina, 03/20/2024 02:00:00 PM, [address] [facility], [facility] [address], [place], [address], Provider Name:Heike west, 04/24/2024 12:00:00 PM, [address] [place] [address], [phone], Provider Name:Jeanne Dennison etelvina, 06/08/2024 10:15:00 AM, [address] [place] [address], [address], Insurance Providers Payer Name Payer Address Payer Phone Subscriber Number Group Number Insured Name Patient Relationship to Insured Coverage Start Date Coverage End Date Medicare National Govt Svcs Inc [address] [place] [address] [id number] Marcella Pinzon Self - patient is the insured 8 [employer] Blue Shield [address] [place] [address] [id number] Marcella Pinzon Self - patient is the insured Medical (General) History Medical History History ICD Code Arthritis CAD (Cholesterol) Cancer Cataracts Depression Sickle cell trait precancerous polyps Surgical History Surgery Date(Month/Year) lumpectomy 1992 foot surgery mastectomy 2012
--- OUTSIDE RECORDS SUMMARY | 2024-02-24 17:24 | XMS_ITS ---
Author Organization [facility] Address [address] [place] [address] Care Team Providers Care Collet Driller Name Role Phone Elidia Chadwick Primary Care Provider Jeanne Sheridan Unavailable [phone] Allergies No Known Allergies REASON FOR VISIT Wart(s) Medications Medication SIG (Take, Route, Fr equency, Duration) Notes Start Date End Date Status Ammonium Lactate 12 % 1 application Exte rnally to affected areas of skin to feet except for between the toes Twice a day for 30 days Act howard Vitamin A Active Iron Active Citalopram Hydrobromide Active Simvastatin Active Vitamin D3 Active Loratadine Active Multivitamin [...] user? No Vital Signs Height 5ft6in in 02/13/2024 Weight 222 lbs 02/13/2024 BMI 35.83 kg/m2 02/13/2024 Blood pressure systolic 110 mm Hg 02/13/20 24 Blood pressure diastolic 70 mm Hg 024 Procedures Procedure Date Ordered Date Performed Result Body Sit e 14969-Mvcn Destruction, 1-14 02/13/2024 N/A Encounters Encounter Location Date Provider Diagnosis [facility] [address] [place] [address] 02/13/2024 Jeanne Cope Left foot pain M79.672 and Plantar wart B07.0 Assessments Encounter Date Diagnosis (ICD Code) Assessment Notes Treatment Notes Treatment Clinical Notes Section Notes 02/13/2024 Left foot pain (ICD-10 - M79.672) 02/13/2024 Plantar wart (ICD-10 - B07.0) Plan Of Treatment Pending Test Test Name Order Date 70157-Nqgo Destruction, 1-14 02/13/2024 Next Appt Details Follow Up: 6 Weeks, Reason: Provider Name:Jeanne main, 03/20/2024 02:00:00 PM, [address] [facility], [address], [place], [address], Provider Name:Heike west, 04/24/2024 12:00:00 PM, [address] [place] [address], [address], Provider Name:Jeanne main, 06/08/2024 10:15:00 AM, [address] [place] [address], [address], Procedure Notes * Category Sub-Category Detail Notes Wart Treatment Procedure Verrucae were de brided to pin-point bleeding margins with sterile 15 surgical blade, silver nitrate chemocautery applied, recomm. immune-boosting meds such as zinc, recomm. follow up with topical chemosurgical agents, Pt defers any other forms of tx - 53494 Progress Notes * Marcella PINZON LDOB:1950 (73 yo F)Acc No.[id number]:02/13/2024 Progress Notes Patient:?KAILA Marcella Bryant Provider:?Jeanne Cope DPM :1950???Age:73 Y???Sex:Female D ate:02/13/2024 Address:[address] [place] [address] Dol[place] Pcp:Elidia Chadwick Subjective: * Chief Complaints: * ???Wart(s) * HPI: ???Skin problems:?Pt States PCP Visit: ?DATE?10/30/2023 * ROS:?General/Constitutional:?Nausea?denies.?Vomiting?denies.?Hunger Thirst?denies.?Loss appetite?denies.?Chills?denies.?Fatigue?denies.?Fever?denies.?Night Sweats?denies.?Unexplained weight loss?denies.?Unexplained [...] for office visit today.?ORIENTED:?person, place, and time.?Dermatologic: ?VERRUCA:?Continues to reveal a Single , multi-loculated , mosaic- patterned, round, raised, flat-topped, petechial bleeding papule(s), with cauliflower appearance and interruption of skin lines, pain to lateral compression, and size estimated at 30 mm diameter, plantar forefoot, LEFT.? Assessment: * Assessment: 1.?Left foot pain - M79.672? ??2.?Plantar wart - B07.0 (Primary)??? Plan: * Treatment: * Procedures:?Wart Treatment:?Procedure?Verrucae were debrided to pin-point bleeding margins with sterile 15 surgical blade, silver nitrate chemocautery applied, recomm. immune-boosting meds such as zinc, recomm. follow up with topical chemosurgical agents, Pt defers any other forms of tx - 92999.? * Procedure Codes:?07593 Wart Destruction, 1-14 * Follow Up:?6 Weeks * Images: * Sign off status: Completed true * Provider:?Jeanne Cope DPM Date:?1 04/15/2023 Generated for Zoila li/Heidi/Laura on:?02/24/2024 05:23 PM EST History and Physical Notes * HPI (History of Present Illness) Category Sub-Category Detail Notes Category Not es Skin problems Pt States PCP Visit: DATE: 10/30/2023 Examination Category Sub-Category Detail Notes Category Not es Dermatologic VERRUCA: Continues to rev eal a Single , multi-loculated , mosaic-patterned, round, raised, flat-topped, petechial bleeding papule(s), with cauliflower appearance and interruption of skin lines, pain to lateral compression, and size estimated at 30 mm diameter, plantar forefoot, LEFT General Examination GENERAL APPEARANCE: Reveals a pleasant, alert, well-nourished, well-developed, well hydrated individual, who demonstrates proper attention to hygiene/body habitus, and is in no acute distress, Pt serves as own historian for office visit today ORIENTED: person, place, and t siddharth
--- OUTSIDE RECORDS SUMMARY | 2024-02-24 17:24 | XMS_ITS ---
Author Organization [facility] Address [address] [place] [address] Care Team Providers Care Childhood Development Teacher Name Role Phone Elidia Chadwick Primary Care Provider Jeanne Sheridan [phone] REASON FOR VISIT r/s Encounters Encounter Location Date Provider Diagnosis [address] [address] 02/11/2024 Jeanne Cope Plan Of Treatment Next Appt Details Provider Name:Jeanne main, 03/20/2024 02:00:00 PM, [address], [address], Provider Name:Heike west, 04/24/2024 12:00:00 PM, [address] [place] [address], [address], Provider Name:Jeanne main, 06/08/2024 10:15:00 AM, [address] [place] [address], [address], Progress Notes * Marcella PINZON LDOB:1950 (73 yo F)Acc No.[id number]:02/11/2024 Patient:?KAILA Marcella Bryant :1950???Age:73 Y???Sex:Female Address:[address] [place], [address] * true * Date:? Generated for Zoila li/Heidi/Kaylaitting on:?02/24/2024 05:23 PM EST
== END 2024-02-24 15:40 | disposition home or self-care (01) ==
LOC: HO.LAB 15:39
PROVIDERS: PCP Internal Medicine; Visit Provider Nurse Practitioner Family
DX: Z13.89 Encounter for screening for other disorder (principal)

== ENCOUNTER 2024-02-25 15:21 | Outpatient (REF) | payer MEDICARE, SELFPAY ==
--- OUTSIDE RECORDS SUMMARY | 2024-02-25 19:14 | XMS_ITS ---
Author Organization [facility] Address [address] [place] [address] Care Team Providers Care Rivet Tapping Machine Operator Name Role Phone Elidia Chadwick Primary Care Provider Jeanne Sheridan [phone] REASON FOR VISIT r/s Encounters Encounter Location Date Provider Diagnosis [address] [address] 02/11/2024 Jeanne Cope Plan Of Treatment Next Appt Details Provider Name:Jeanne main, 03/20/2024 02:00:00 PM, [address], [phone], Provider Name:Heike west, 04/24/2024 12:00:00 PM, [address] [place] [address], [address], Provider Name:Jeanne main, 06/08/2024 10:15:00 AM, [address] [place] [address], [address], Progress Notes * Marcella PINZON LDOB:1950 (73 yo F)Acc No.[id number]:02/11/2024 Patient:?KAILA Marcella Bryant :1950???Age:73 Y???Sex:Female Address:[address] [place], [address] * true * Date:? Generated for Zoila li/Heidi/Kaylaitting on:?02/25/2024 07:14 PM EST
--- OUTSIDE RECORDS SUMMARY | 2024-02-25 19:14 | XMS_ITS | Patient Health Record ---
Author Organization [facility] Address [address] [facility] [place] [address] Care Team Providers Care Audit Manager Name Role Phone Elidia Chadwick Primary Care Provider Jeanne Sheridan Unavailable [phone] Allergies No Known Allergies Reason For Referral [...] W/U Status Risk Notes Problem Plantar wart (77685881) Plantar wart (B07.0) Active confirmed Vital Signs Blood pressure diastolic 70 mm Hg 02/13/2024 Height 5ft6in in 02/13/2024 Blood pressure systolic 110 mm Hg 02/13/2024 Weight 222 lbs 02/13/2024 BMI 35.83 kg/m2 02/13/2024 Procedures Procedure Date Ordered Date Performed Result Body Sit e 18904-Crce Destruction, 1-14 12/18/2023 N/A 45478-Ghoo Destruction, 1-01/13/2024 N/A 92813-Riwy Destruction, 1-02/13/2024 N/A Encounters Encounter Location Date Provider Diagnosis [address] [address] 12/18/2023 Jeanne Cope Xerosis of skin L85.3 ; Left foot pain M79.672 and Plantar wart B07.[address] [address] 01/13/2024 Jeanne Cope Xerosis of skin L85.3 ; Left foot pain M79.672 and Plantar wart B07.[address] [address] 02/13/2024 Jeanne Cope Left foot pain M79.672 and Plantar wart B07.[address] [address] 12/16/2023 Jeanne Cope [facility] [address] [facility] [address] [place] [address] 01/10/2024 Jeanne Cope [address] [address] 02/11/2024 Jeanne Cope [address] [address] 12/03/2023 Jeanne Cope Assessments Encounter Date Diagnosis [...] Treatment Pending Test Test Name Order Date 96400-Fyxk Destruction, -12/18/2023 67904-Htgq Destruction, -01/13/2024 68425-Otpt Destruction, -14 02/13/2024 Next Appt Details Provider Name:Jeanne Dennison etelvina, 03/20/2024 02:00:00 PM, [address] [facility] [address], [place], [address], Provider Name:Heike west, 04/24/2024 12:00:00 PM, [address] [place] [address], [address], Provider Name:Jeanne Dennison etelvina, 06/08/2024 10:15:00 AM, [address] [place] [address], [address], Insurance Providers Payer Name Payer Address Payer Phone Subscriber Number Group Number Insured Name Patient Relationship to Insured Coverage Start Date Coverage End Date Medicare National Govt Svcs Inc [address] [place] [address] [id number] Marcella Pinzon Self - patient is the insured 8 [employer] Blue Shield [address] [place] [address] [id number] Marcella Pinzon Self - patient is the insured Medical (General) History Medical History History ICD Code Arthritis CAD (Cholesterol) Cancer Cataracts Depression Sickle cell trait precancerous polyps Surgical History Surgery Date(Month/Year) lumpectomy 1992 foot surgery mastectomy 2012
--- OUTSIDE RECORDS SUMMARY | 2024-02-25 19:14 | XMS_ITS ---
Author Organization [facility] Address [address] [place] [address] Care Team Providers Care Oracle E Business Developer Name Role Phone Elidia Chadwick Primary Care Provider Jeanne Sheridan Unavailable [phone] Allergies No Known Allergies REASON FOR VISIT [...] Ordered Date Performed Result Body Sit e 33069-Xhsz Destruction, 1-14 02/13/2024 N/A Encounters Encounter Location Date Provider Diagnosis [facility] [address] [place] [address] 02/13/2024 Jeanne Cope Left foot pain M79.672 and Plantar wart B07.0 Assessments Encounter Date Diagnosis (ICD Code) Assessment Notes Treatment Notes Treatment Clinical Notes Section Notes 02/13/2024 Left foot pain (ICD-10 - M79.672) 02/13/2024 Plantar wart (ICD-10 - B07.0) Plan Of Treatment Pending Test Test Name Order Date 75008-Jsmc Destruction, 1-14 02/13/2024 Next Appt Details Follow Up: 6 Weeks, Reason: Provider Name:Jeanne main, 03/20/2024 02:00:00 PM, [address] [facility], [address], [place], [address], Provider Name:Heike west, 04/24/2024 12:00:00 PM, [address] [place] [address], [address], Provider Name:Jeanne main, 06/08/2024 10:15:00 AM, [address] [place] [address], [address], Procedure Notes * Category Sub-Category Detail Notes Wart Treatment Procedure Verrucae were de brided to pin-point bleeding margins with sterile 15 surgical blade, silver nitrate chemocautery applied, recomm. immune-boosting meds such as zinc, recomm. follow up with topical chemosurgical agents, Pt defers any other forms of tx - 61891 Progress Notes * Marcella PINZON LDOB:1950 (73 yo F)Acc No.[id number]:02/13/2024 Progress Notes Patient:?KAILA Marcella Bryant Provider:?Jeanne Cope DPM :1950???Age:73 Y???Sex:Female D ate:02/13/2024 Address:[address] [place] [address] [place] Pcp:Elidia Chadwick Subjective: * Chief Complaints: * [...] defers any other forms of tx - 62700.? * Procedure Codes:?63641 Wart Destruction, 1-14 * Follow Up:?6 Weeks * Images: * Sign off status: Completed true * Provider:?Jeanne Cope DPM Date:?1 04/15/2023 Generated for Zoila li/eHidi/Laura on:?02/25/2024 07:14 PM EST History and Physical Notes * [...]
--- OUTSIDE RECORDS SUMMARY | 2024-02-25 19:14 | XMS_ITS ---
Author Organization [facility] Address [address] [place] [address] Care Team Providers Care Academic Administrator Name Role Phone Elidia Chadwick Primary Care Provider Jeanne Sheridan [phone] Encounters Encounter Location Date [facility] [address] [address] 02/11/2024 Jeanne Cope Plan Of Treatment Next Appt Details Provider Name:Jeanne main, 03/20/2024 02:00:00 PM, [address] [place] [address], [phone], Provider Name:Heike west, 04/24/2024 12:00:00 PM, [address] [place] [address], [address], Provider Name:Jeanne main, 06/08/2024 10:15:00 AM, [address] [place] [address], [address], Progress Notes * Marcella PINZON LDOB:1950 (73 yo F)Acc No.[id number]:02/11/2024 Progress Notes Patient:?KAILA Marcella Bryant Provider:?Jeanne Cope DPM :1950???Age:73 Y???Sex:Female D ate:02/11/2024 Address:[address] [place] [address] [id number] Pcp:Elidia Chadwick Subjective: * Chief Complaints: * ??? * Medical History:? Objective: * Vitals:? Assessment: Plan: * Treatment: * Images: * The named appointment provid er may or may not be the originator of this progress note, and it is not deemed complete until electronically signed by the appointment provider. Sign off status: Pending * Provider:?Jeanne Cope DPM Date:?04/13/2023 Generated for Zoila li/Heidi/Kaylaitting on:?02/25/2024 07:14 PM EST
== END 2024-02-25 15:22 | disposition home or self-care (01) ==
LOC: HO.LNP 15:21
PROVIDERS: Visit Provider Nurse Practitioner Family
DX: Z13.89 Encounter for screening for other disorder (principal)

== ENCOUNTER 2024-02-26 09:22 | Outpatient (REF) | payer MEDICARE, SELFPAY ==
--- OUTSIDE RECORDS SUMMARY | 2024-02-26 09:26 | XMS_ITS ---
Author Organization [facility] Address [address] [place] [address] Care Team Providers Care Air Traffic Supervisor Name Role Phone Elidia Chadwick Primary Care Provider Jeanne Sheridan [phone] REASON FOR VISIT r/s Encounters Encounter Location Date Provider Diagnosis [address] [address] 02/11/2024 Jeanne Cope Plan Of Treatment Next Appt Details Provider Name:Jeanne main, 03/20/2024 02:00:00 PM, [address], [address], Provider Name:Heike west, 04/24/2024 12:00:00 PM, [address] [place] [address], [address], Provider Name:Jeanne main, 06/08/2024 10:15:00 AM, [address] [place] [address], [address], Progress Notes * Marcella PINZON LDOB:1950 (73 yo F)Acc No.[id number]:02/11/2024 Patient:?KAILA Marcella Bryant :1950???Age:73 Y???Sex:Female Address:[address] [place], [address] * true * Date:? Generated for Zoila li/Heidi/Kaylaitting on:?02/26/2024 09:25 AM EST
--- OUTSIDE RECORDS SUMMARY | 2024-02-26 09:26 | XMS_ITS | Patient Health Record ---
Author Organization [facility] Address [address] [facility] [place] [address] Care Team Providers Care Staff Electrical Engineer Name Role Phone Elidia Chadwick Primary Care Provider Jeanne Sheridan Unavailable [phone] Allergies No Known Allergies Reason For Referral [...] W/U Status Risk Notes Problem Plantar wart (65362620) Plantar wart (B07.0) Active confirmed Vital Signs Blood pressure diastolic 70 mm Hg 02/13/2024 Height 5ft6in in 02/13/2024 Blood pressure systolic 110 mm Hg 02/13/2024 Weight 222 lbs 02/13/2024 BMI 35.83 kg/m2 02/13/2024 Procedures Procedure Date Ordered Date Performed Result Body Sit e 37306-Alvg Destruction, 1-14 12/18/2023 N/A 96360-Dblv Destruction, 1-01/13/2024 N/A 07029-Boac Destruction, 1-02/13/2024 N/A Encounters Encounter Location Date Provider Diagnosis [address] [address] 12/18/2023 Jeanne Cope Xerosis of skin L85.3 ; Left foot pain M79.672 and Plantar wart B07.[address] [address] 01/13/2024 Jeanne Cope Xerosis of skin L85.3 ; Left foot pain M79.672 and Plantar wart B07.[address] [address] 02/13/2024 Jeanne Cope Left foot pain M79.672 and Plantar wart B07.[address] [address] 12/16/[address] [facility] [address] [facility] [address] [place] [address] 01/10/2024 Jeanne Cope [address] [address] 02/11/2024 Jeanne Cope [address] [address] 12/03/2023 Jeanne Cope Assessments Encounter Date Diagnosis [...] Treatment Pending Test Test Name Order Date 86051-Fvho Destruction, -12/18/2023 36507-Llvw Destruction, -01/13/2024 66032-Rlbu Destruction, -14 02/13/2024 Next Appt Details Provider Name:Jeanne Dennison etelvina, 03/20/2024 02:00:00 PM, [address] [facility] [address], [place], [address], Provider Name:Heike west, 04/24/2024 12:00:00 PM, [address] [place] [address], [address], Provider Name:Jeanne Dennison etelvina, 06/08/2024 10:15:00 AM, [address] [place] [address], [address], Insurance Providers Payer Name Payer Address Payer Phone Subscriber Number Group Number Insured Name Patient Relationship to Insured Coverage Start Date Coverage End Date Medicare National Govt Svcs Inc [address] [place] [address] [id number] Marcella Pinzon Self - patient is the insured 8 [employer] Blue Shield [address] [place] [address] [id number] Marcella Pinzon Self - patient is the insured Medical (General) History Medical History History ICD Code Arthritis CAD (Cholesterol) Cancer Cataracts Depression Sickle cell trait precancerous polyps Surgical History Surgery Date(Month/Year) lumpectomy 1992 foot surgery mastectomy 2012
--- OUTSIDE RECORDS SUMMARY | 2024-02-26 09:26 | XMS_ITS ---
Author Organization [facility] Address [address] [place] [address] Care Team Providers Care Industrial Controller Name Role Phone Elidia Chadwick Primary Care Provider Jeanne Sheridan Unavailable [phone] Allergies No Known Allergies REASON FOR VISIT [...] an other tobacco user? No Vital Signs Blood pressure systolic 110 mm Hg 02/13/20 24 Blood pressure diastolic 70 mm Hg 024 Height 5ft6in in 02/13/2024 Weight 222 lbs 02/13/2024 BMI 35.83 kg/m2 02/13/2024 Procedures Procedure Date Ordered Date Performed Result Body Sit e 70546-Ngpc Destruction, 1-14 02/13/2024 N/A Encounters Encounter Location Date Provider Diagnosis [facility] [address] [place] [address] 02/13/2024 Jeanne Cope Left foot pain M79.672 and Plantar wart B07.0 Assessments Encounter Date Diagnosis (ICD Code) Assessment Notes Treatment Notes Treatment Clinical Notes Section Notes 02/13/2024 Left foot pain (ICD-10 - M79.672) 02/13/2024 Plantar wart (ICD-10 - B07.0) Plan Of Treatment Pending Test Test Name Order Date 68775-Pufx Destruction, 1-14 02/13/2024 Next Appt Details Follow Up: 6 Weeks, Reason: Provider Name:Jeanne main, 03/20/2024 02:00:00 PM, [address] [facility], [address], [place], [address], Provider Name:Heike west, 04/24/2024 12:00:00 PM, [address] [place] [address], [phone], Provider Name:Jeanne main, 06/08/2024 10:15:00 AM, [address] [place] [address], [phone], Procedure Notes * Category Sub-Category Detail Notes Wart Treatment Procedure Verrucae were de brided to pin-point bleeding margins with sterile 15 surgical blade, silver nitrate chemocautery applied, recomm. immune-boosting meds such as zinc, recomm. follow up with topical chemosurgical agents, Pt defers any other forms of tx - 37985 Progress Notes * Marcella PINZON LDOB:1950 (73 yo F)Acc No.[id number]:02/13/2024 Progress Notes Patient:?KAILA Marcella Bryant Provider:?Jeanne Cope DPM :1950???Age:73 Y???Sex:Female D ate:02/13/2024 Address:[address] [place] [address] [place] Pcp:Elidia Chadwick Subjective: * Chief Complaints: * [...] defers any other forms of tx - 69045.? * Procedure Codes:?75004 Wart Destruction, 1-14 * Follow Up:?6 Weeks * Images: * Sign off status: Completed true * Provider:?Jeanne Cope DPM Date:?1 04/15/2023 Generated for Zoila li/Heidi/Laura on:?02/26/2024 09:25 AM EST History and Physical Notes * [...]
--- OUTSIDE RECORDS SUMMARY | 2024-02-26 09:26 | XMS_ITS ---
Author Organization [facility] Address [address] [place] [address] Care Team Providers Care Real Estate Transaction Manager Name Role Phone Elidia Chadwick Primary Care Provider Jeanne Shreidan [phone] Encounters Encounter Location Date [facility] [address] [address] 02/11/2024 Jeanne Cope Plan Of Treatment Next Appt Details Provider Name:Jeanne main, 03/20/2024 02:00:00 PM, [address] [place] [address], [phone], Provider Name:Heike west, 04/24/2024 12:00:00 PM, [address] [place] [address], [phone], Provider Name:Jeanne main, 06/08/2024 10:15:00 AM, [address] [place] [address], [phone], Progress Notes * Marcella PINZON LDOB:1950 (73 yo F)Acc No.[id number]:02/11/2024 Progress Notes Patient:?KAILA Marcella Bryant Provider:?Jeanne Cope DPM :1950???Age:73 Y???Sex:Female D ate:02/11/2024 Address:[address] [place] [address] [id number] Pcp:Elidia Chadwick Subjective: * Chief Complaints: * ??? * Medical History:? Objective: * Vitals:? Assessment: Plan: * Treatment: * Images: * The named appointment provid er may or may not be the originator of this progress note, and it is not deemed complete until electronically signed by the appointment provider. Sign off status: Pending * Provider:?Jeanne Cope DPM Date:?04/13/2023 Generated for Zoila li/Heidi/Kaylaitting on:?02/26/2024 09:25 AM EST
[2024-03-05 19:22] LABS: Calprotectin, Fecal 38 mcg/g
== END 2024-02-26 09:23 | disposition home or self-care (01) ==
LOC: HO.LNP 09:22
PROVIDERS: Visit Provider Nurse Practitioner Family
DX: R15.9 Full incontinence of feces (principal)
CPT/HCPCS: 83993

== ENCOUNTER 2024-03-13 07:56 | Outpatient (REF) | payer MEDICARE, SELFPAY ==
--- OUTSIDE RECORDS SUMMARY | 2024-03-13 07:59 | XMS_ITS | Patient Health Record ---
Author Organization [facility] Address [address] [facility] [place] [address] Care Team Providers Care Rug Hooker Name Role Phone Elidia Chadwick Primary Care Provider Jeanne Sheridan Unavailable [phone] Allergies No Known Allergies Reason For Referral [...] W/U Status Risk Notes Problem Plantar wart (20191498) Plantar wart (B07.0) Active confirmed Vital Signs Blood pressure diastolic 70 mm Hg 02/13/2024 Height 5ft6in in 02/13/2024 Blood pressure systolic 110 mm Hg 02/13/2024 Weight 222 lbs 02/13/2024 BMI 35.83 kg/m2 02/13/2024 Procedures Procedure Date Ordered Date Performed Result Body Sit e 68283-Sjkq Destruction, 1-14 12/18/2023 N/A 10141-Ayye Destruction, 1-01/13/2024 N/A 83382-Kadh Destruction, 1-02/13/2024 N/A Encounters Encounter Location Date Provider Diagnosis [address] [address] 12/18/2023 Jeanne Cope Xerosis of skin L85.3 ; Left foot pain M79.672 and Plantar wart B07.[address] [address] 01/13/2024 Jeanne Cope Xerosis of skin L85.3 ; Left foot pain M79.672 and Plantar wart B07.[address] [address] 02/13/2024 Jeanne Cope Left foot pain M79.672 and Plantar wart B07.[address] [address] 12/16/2023 Jeanne Cope [facility] [address] [facility] [address] [place] [address] 01/10/2024 Jeanne Cope [address] [address] 02/11/2024 Jeanne Cope [address] [address] 12/03/2023 Jeanne Cope Assessments Encounter Date Diagnosis [...] Treatment Pending Test Test Name Order Date 11606-Fksk Destruction, -12/18/2023 17714-Fosg Destruction, -01/13/2024 80939-Agnu Destruction, -14 02/13/2024 Next Appt Details Provider Name:Jeanne Dennison etelvina, 03/20/2024 02:00:00 PM, [address] [facility], [facility] [address], [place], [address], Provider Name:Heike west, 04/24/2024 12:00:00 PM, [address] [place] [address], [phone], Provider Name:Jeanne Dennison etelvina, 06/08/2024 10:15:00 AM, [address] [place] [address], [phone], Insurance Providers Payer Name Payer Address Payer Phone Subscriber Number Group Number Insured Name Patient Relationship to Insured Coverage Start Date Coverage End Date Medicare National Govt Sv[employer] [address] [place] [address] [id number] Marcella Pinzon Self - patient is the insured 8 [employer] Blue Shield [address] [place] [address] [id number] Marcella Pinzon Self - patient is the insured Medical (General) History Medical History History ICD Code Arthritis CAD (Cholesterol) Cancer Cataracts Depression Sickle cell trait precancerous polyps Surgical History Surgery Date(Month/Year) lumpectomy 1992 foot surgery mastectomy 2012
--- OUTSIDE RECORDS SUMMARY | 2024-03-13 07:59 | XMS_ITS ---
Author Organization [facility] Address [address] [place] [address] Care Team Providers Care Rehabilitation Services Counselor Name Role Phone Elidia Chadwick Primary Care Provider Jeanne Sheridan [phone] Encounters Encounter Location Date [facility] [address] [address] 02/11/2024 Jeanne Cope Plan Of Treatment Next Appt Details Provider Name:Jeanne main, 03/20/2024 02:00:00 PM, [address] [place] [address], [phone], Provider Name:Heike west, 04/24/2024 12:00:00 PM, [address] [place] [address], [phone], Provider Name:Jeanne main, 06/08/2024 10:15:00 AM, [address] [place] [address], [phone], Progress Notes * Marcella PINZON LDOB:1950 (73 yo F)Acc No.[id number]:02/11/2024 Progress Notes Patient:?KAILA Marcella Bryant Provider:?Jeanne Cope DPM :1950???Age:73 Y???Sex:Female D ate:02/11/2024 Address:[address] [place] [address] [id number] Pcp:Elidia Chadwick Subjective: * Chief Complaints: * ??? * Medical History:? Objective: * Vitals:? Assessment: Plan: * Treatment: * Images: * The named appointment provid er may or may not be the originator of this progress note, and it is not deemed complete until electronically signed by the appointment provider. Sign off status: Pending * Provider:?Jeanne Cope DPM Date:?04/13/2023 Generated for Zoila li/Heidi/Kaylaitting on:?03/13/2024 07:58 AM EST
--- OUTSIDE RECORDS SUMMARY | 2024-03-13 07:59 | XMS_ITS ---
Author Organization [facility] Address [address] [place] [address] Care Team Providers Care Physical Therapy Director Name Role Phone Elidia Chadwick Primary Care Provider Jeanne Sheridan Unavailable [phone] Allergies No Known Allergies REASON FOR VISIT [...] Ordered Date Performed Result Body Sit e 35760-Fyav Destruction, 1-14 02/13/2024 N/A Encounters Encounter Location Date Provider Diagnosis [facility] [address] [place] [address] 02/13/2024 Jeanne Cope Left foot pain M79.672 and Plantar wart B07.0 Assessments Encounter Date Diagnosis (ICD Code) Assessment Notes Treatment Notes Treatment Clinical Notes Section Notes 02/13/2024 Left foot pain (ICD-10 - M79.672) 02/13/2024 Plantar wart (ICD-10 - B07.0) Plan Of Treatment Pending Test Test Name Order Date 92973-Pzdw Destruction, 1-14 02/13/2024 Next Appt Details Follow Up: 6 Weeks, Reason: Provider Name:Jeanne main, 03/20/2024 02:00:00 PM, [address] [facility], [address], [place], [address], Provider Name:Heike west, 04/24/2024 12:00:00 PM, [address] [place] [address], [phone], Provider Name:Jeanne main, 06/08/2024 10:15:00 AM, [address] [place] [address], [phone], Procedure Notes * Category Sub-Category Detail Notes Wart Treatment Procedure Verrucae were de brided to pin-point bleeding margins with sterile 15 surgical blade, silver nitrate chemocautery applied, recomm. immune-boosting meds such as zinc, recomm. follow up with topical chemosurgical agents, Pt defers any other forms of tx - 11692 Progress Notes * Marcella PINZON LDOB:1950 (73 yo F)Acc No.[id number]:02/13/2024 Progress Notes Patient:?KAILA Marcella Bryant Provider:?Jeanne Cope DPM :1950???Age:73 Y???Sex:Female D ate:02/13/2024 Address:[address] [place] [address] [id number] Pcp:Elidia Chadwick Subjective: * Chief Complaints: * [...] defers any other forms of tx - 64910.? * Procedure Codes:?38145 Wart Destruction, 1-14 * Follow Up:?6 Weeks * Images: * Sign off status: Completed true * Provider:?Jeanne Cope DPM Date:?1 04/15/2023 Generated for Zoila li/Heidi/Laura on:?03/13/2024 07:59 AM EST History and Physical Notes * [...]
[2024-03-13 08:33] LABS: MANUAL DIFF FLAG NO
[2024-03-13 09:44] LABS: Basophils Percent Auto 0.4 % (0-2); Eosinophils Absolute Auto 0.1 X10*3/uL (0.0-0.4); Eosinophils Percent Auto 0.9 % (0-4); Hematocrit 39.9 % (37.0-47.0); Hemoglobin 13.3 g/dl (12.0-16.0); Imm Gran Abs Auto 0.01 X10*3/uL (0.00-0.03); Imm Gran Pct Auto 0.2 % (0.0-0.4); Lymphocytes Absolute Auto 1.5 X10*3/uL (1.2-4.9); Lymphocytes Percent Auto 26.9 % (20-40); Mean Corpuscular HGB Conc 33.3 g/dl (31.0-35.0); Mean Corpuscular Hemoglobin 28.1 pg (27.0-33.0); Mean Corpuscular Volume 84.4 fL (80.0-98.0); Mean Platelet Volume 11.3 fL (9.4-12.3); Monocytes Absolute Auto 0.4 X10*3/uL (0.1-1.2); Monocytes Percent Auto 6.9 % (2-11); Neutrophils Absolute Auto 3.5 x10*3/uL (2.0-8.3); Neutrophils Percent Auto 64.7 % (45-73); Platelet Count 301 X10*3/uL (160-400); Red Blood Count 4.73 X10*6/uL (4.20-5.50); White Blood Count 5.4 X10*3/uL (4.8-10.8)
[2024-03-13 10:04] LABS: Estimated Average Glucose 120 mg/dL; Hemoglobin A1C 137.6843 umol/L; Hemoglobin A1c % 5.8 % (<6.0); Total Hemoglobin (HGBA1C) 3476.0981 umol/L
[2024-03-13 11:15] LABS: Folate 16.7 ng/mL (> or = 4.0); Vitamin B12 639 pg/mL (200-900)
[2024-03-13 12:58] LABS: Alanine Aminotransferase 14 U/L (0-31); Albumin Level 3.8 g/dL (3.5-5.0); Anion Gap 12 (12-20); Aspartate Amino Transferase 23 U/L (5-31); Bilirubin Total 0.5 mg/dL (0.0-1.0); Blood Urea Nitrogen 14 mg/dL (9-16); Calcium 9.4 mg/dL (8.4-10.2); Carbon Dioxide 25 mmol/L (22-29); Chloride 106 mmol/L (96-108); Cholesterol 193 mg/dL (<200); Estimated Glomerular Filt Rate > 60; Glucose Random 88 mg/dL (60-115); HDL Cholesterol 60 mg/dL (>40); LDL Cholesterol Calculated 119 mg/dL (<100); Potassium 3.9 mmol/L (3.3-5.1); Sodium 139 mmol/L (135-145); Total Protein 8.2 g/dL (6.5-8.0); Triglycerides 73 mg/dL (<150)
[2024-03-13 13:31] LABS: Free T4 (Free Thyroxine) 0.95 ng/dL (0.71-1.85); Thyroid Stimulating Hormone 1.78 uIU/mL (0.32-4.0); Vitamin D 25-OH Total 48.3 ng/mL (>30)
[2024-03-13 14:20] LABS: Alkaline Phosphatase 90 U/L (39-117)
== END 2024-03-13 07:57 | disposition home or self-care (01) ==
LOC: HO.LAB 07:56
PROVIDERS: PCP Internal Medicine; Visit Provider Internal Medicine
DX: E78.00 Pure hypercholesterolemia, unspecified (principal); R73.02 Impaired glucose tolerance (oral)
CPT/HCPCS: 36415; 80053; 80061; 82306; 82607; 82746; 83036; 84439; 84443; 85025

== ENCOUNTER 2024-04-03 09:42 | Outpatient (AMB) | payer MEDICARE, SELFPAY ==
--- NOTE | 2024-04-03 09:43 | A.OFFPC_ITS ---
Vital Signs 04/03/24 09:45 Height 5 ft 6 in BMI Reason not done Patient refused/unable BP 138/76 Blood Pressure Location Rt brachial Position Sitting Pulse 54 Pulse Source Pulse Oximeter Pulse Oximetry (%) 97 Oxygen Delivery Method Room Air Intake Visit Reasons: 6 Month F/U Allergies lactose Allergy (Intermediate, Verified 04/03/24 09:45) Flatulence Tobacco use date assessed: 04/03/24 Fall risk assessment: No Falls in past year Last assessed Fall Risk: 04/03/24 Dental Screening Dental Screen Date: 04/03/24 Did you have a dental visit in the last 12 months?: Yes Did you have a dental problem in the last 6 months where you did not have access to dental care?: No Was dental information given to patient?: Patient has dentist HPI 6 Month F/U HPI Details The patient is a 73-year-old female presenting with follow-up for multiple chronic conditions and the management of irritable bowel syndrome symptoms. The patient has a history of dysthymia, hypercholesterolemia, peripheral vascular disease, and notable gastrointestinal issues identified as postprandial diarrhea and irritable bowel syndrome. Her gastrointestinal symptoms have persisted despite Medbusol usage, described as variable bowel movements, with exacerbations linked to stress. Previous evaluation by gastroenterology includes a calprotectin test, which was negative for inflammation, steering her care toward an IBS diagnosis. Her last colonoscopy was conducted in December 2019, and she had a mammogram in February 2024. She acknowledges possible heightened sensitivity to mood influences due to stress, which may be exacerbating her symptoms. The patient describes her diet and exercise as active management strategies for her diabetes and cholesterol, aiming for LDL below 130 mg/dL and triglycerides below 150 mg/dL. Her last hemoglobin A1c showed controlled hyperglycemia at 5.8%. The patient's bone density test in September 2021 was normal. Blood tests demonstrate a comprehensive profile with all parameters within normal limits, except for a sustained mild hyperglycemia. She noted weight changes with efforts in Weight Watchers. Concerns during flu season were addressed with masking due to the prevalence of flu, COVID-19, and RSV. No issues with urination or vision were reported and glaucoma is being monitored. FORMERLY [facility], [facility]1983 Medical History Tubular adenoma Hx of radiation therapy Lab test negative for COVID-19 virus Hx of sickle cell trait Depression Sleep apnea Elevated cholesterol Hx of cardiac murmur Obesity Incomplete emptying of bladder Wrist fracture, right Osteopenia Peripheral vascular disease Hypercholesterolemia History of breast cancer Dysthymia Surgical History H/O colonoscopy History of left mastectomy History of cataract surgery H/O foot surgery H/O breast reconstruction Family History Father Multiple myeloma Mother Hypertension Brain aneurysm Social History Housing: House Alcohol intake: never Patient Tobacco Use Status: Never used Tobacco Tobacco use type: Cigarette e-Cigarette/Vaping Use: Never Used Second Hand Smoke Exposure: No service: No Current occupational status: retired Current occupational exposures/hazards: No Cognitive needs: No Hearing needs: No Vision needs: Yes Questionnaire PHQ-9 Over the last 2 weeks, how often have you been bothered by any of the following problems? 1. Little interest or pleasure in doing things: several days 2. Feeling down, depressed, or hopeless: several days 3. Trouble falling or staying asleep, or sleeping too much: more than half the days 4. Feeling tired or having little energy: not at all 5. Poor appetite or overeating: more than half the days 6. Feeling bad about yourself - or that you are a failure or have let yourself or your family down: more than half the days 7. Trouble concentrating on things, such as reading the newspaper or watching television: not at all 8. Moving or speaking so slowly that other people could have noticed. Or the opposite - being so fidgety or restless that you have been moving around a lot more than usual: not at all 9. Thoughts that you would be better off or of hurting yourself in some way: not at all Total score: 8 Depression Screening Interpretation: Positive Depression Screening Follow-up: Existing condition and In treatment Depression Screening Done: Yes 18549 - PHQ-9 Billing: Yes Source: Developed by Drs. Tong Garcia, Sayda Moran, Rudy Lopez and colleagues, with an educational georgiana from [employer]. Thrive Questionnaire Date Thrive assessed: 02/14/25 I am a: Patient What is your living situation today?: I have a steady place to live Within the past 12 months, did the food you bought not last and you didn't have the money to get more?: Never true Within the past 12 months, did you worry whether your food would run out before you got money to buy more?: Never true Do you have trouble paying for medicines?: No Do you have trouble getting transportation to medical appointments?: No Do you have trouble paying your heating and electricity bill?: No Do you have trouble taking care of your child, family member or friend?: No Do you have trouble with day-to-day activities such as bathing, preparing meals, shopping, managing finances, etc.?: No Are you currently unemployed and looking for a job?: No Are you interested in more education?: No Currently or been in a relationship where the following occur: No concerns reported THRIVE Score: 0 AUDIT C Alcohol Use Questionnaire (AUDIT-C) 1. How often do you have a drink containing alcohol?: Never 2. How many drinks containing alcohol do you have on a typical day when you are drinking?: 1 or 2 3. How often do you have six or more drinks on one occasion?: Never Total Score: 0 Score Reviewed/Action Taken: No DAKOTA-7 AMB Questionnaire DAKOTA-7 Date DAKOTA - 7 assessed: 04/03/24 Feeling nervous, anxious, or on edge: 0 = Not at all Not being able to stop or control worryin = Not at all Worrying too much about different things: 0 = Not at all Trouble relaxin = Not at all Being so restless that it is hard to sit still: 0 = Not at all Becoming easily annoyed or irritable: 0 = Not at all Feeling afraid as if something awful might happen: 0 = Not at all Total DAKOTA-7 score (0-4 normal; 5-9 mild; 10-14 moderate; 15-21 severe): 0 Source: Developed by Drs. Tong Garcia, Sayda Moran, Rudy Lopez and colleagues, with an educational georgiana from [employer]. Physical exam (Primary Care) Vital Signs: Last Vital Signs Pulse 54 04/03/24 09:45 BP 138/76 04/03/24 09:45 Pulse Ox 97 04/03/24 09:45 Oxygen Delivery Method Room Air 04/03/24 09:45 Tobacco/Smoking Status: Tobacco use Status Tobacco use date assessed 04/03/24 04/03/24 09:50 Patient Tobacco Use Status Never used Tobacco 04/03/24 09:50 Tobacco use type Cigarette 04/03/24 09:50 e-Cigarette/Vaping Use Never Used 04/03/24 09:50 PHQ-9: PHQ-9 Score PHQ-9: Total score 8 04/03/24 09:50 Depression Screening Interpretation: Positive Depression Screening Follow-up: Existing condition and In treatment Thrive Assessment: Date of Thrive Assessment Date Thrive assessed 04/03/24 04/03/24 09:50 Currently or been in a relationship where the following occur: No concerns reported Const General: alert; No acute distress Eyes Conjunctivae: conjunctivae normal Resp Auscultation: clear to auscultation bilaterally Cardio Rate: regular rate Rhythm: regular rhythm GI Inspection: Yes normal to inspection Extrem General: Yes normal to inspection and No edema Coding Level of Care Code Est Pt Level 4 (58890) Complex EM visit Add On G2211 Diagnoses Diarrhea, unspecified type R19.7 Diarrhea type: unspecified type Impaired glucose tolerance R73.02 Obesity E66.9 Hypercholesterolemia E78.00 Dysthymia F34.1 Additional Codes PHQ-9 - 86640 - PHQ-9 Billing: Yes ([id number]) Assessment & Plan Assessment & Plan (1) Diarrhea: Code(s): R19.7 - Diarrhea, unspecified Category: Medical Qualifiers: Diarrhea type: unspecified type Qualified Code(s): R19.7 - Diarrhea, unspecified Plan: Patient had a workup done and has been advised to follow-up with Gastroenterology with continuous diarrhea (2) Impaired glucose tolerance: Code(s): R73.02 - Impaired glucose tolerance (oral) Category: Medical Plan: Decrease the amount of carbohydrate intake, pasta, bread, rice and potatoes are all sugar and that is aside from all the sweet stuff, remember that fruits are good but they are Sweet also. (3) Obesity: Code(s): E66.9 - Obesity, unspecified Category: Medical Plan: Diet and exercise (4) Hypercholesterolemia: Code(s): E78.00 - Pure hypercholesterolemia, unspecified Category: Medical Plan: Avoid fried foods, chicken skin, eggs, butter margarine, pastries and meat. Be it pork or beef they have a lot of cholesterol LDL goal of less than 130 and triglyceride of less than 1. 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 8%: - Regular follow-ups concerning dysthymia, with consideration for psychiatric involvement if warranted. Continue current citalopram dosage. - Peripheral vascular disease requires routine monitoring and follow-ups to prec lude complications. - Emphasize obesity management with lifestyle interventions, supported by Weight Watchers, to promote continued weight loss. - Reinforce adherence to all preventive measures during flu season, including wearing masks in high-risk settings. Orders: Orders Comprehensive Met. Panel 6 Months E78.00 - Pure hypercholesterolemia, unspecified Thyroid Stimulating Hormone 6 Months E78.00 - Pure hypercholesterolemia, unspecified Vitamin B12 and Folate 6 Months E78.00 - Pure hypercholesterolemia, unspecified Complete Blood Count Auto Diff 6 Months E78.00 - Pure hypercholesterolemia, unspecified Free T4 (Free Thyroxine) 6 Months E78.00 - Pure hypercholesterolemia, unspecified Hemoglobin A1c 6 Months E78.00 - Pure hypercholesterolemia, unspecified Lipid Panel 6 Months E78.00 - Pure hypercholesterolemia, unspecified UA w Microscopic 6 Months E78.00 - Pure hypercholesterolemia, unspecified
[2024-04-03 09:45] VITALS: BP 138/76; PULSE 54; O2SAT 97
--- OUTSIDE RECORDS SUMMARY | 2024-04-03 10:12 | XMS_ITS ---
[facility] Address [address] [place] [address] Care Team Providers Care Venetian Blind Mechanic Name Role Phone Elidia Chadwick Primary Care Provider Jeanne Sheridan [phone] Encounters Encounter Location Date Provider [facility] [address] [address] 02/11/2024 Jeanne Cope Plan Of Treatment Next Appt Details Provider Name:Heike west, 04/24/2024 12:00:00 PM, [address] [place] [address], [phone], Provider Name:Jeanne main, 06/08/2024 10:15:00 AM, [address] [place] [address], [phone], Progress Notes * Marcella PINZON LDOB:1950 (73 yo F)Acc No.[id number]:02/11/2024 Progress Notes Patient:?KAILAMarcella MELO Provider:?Jeanne Cope DPM :1950???Age:73 Y???Sex:Female D ate:02/11/2024 Address: [place] Pcp:Elidia Chadwick Subjective: * Chief Complaints: * ??? * Medical History:? Objective: * Vitals:? Assessment: Plan: * Treatment: * Images: * The named appointment provid er may or may not be the originator of this progress note, and it is not deemed complete until electronically signed by the appointment provider. Sign off status: Pending * Provider:?Jeanne Cope DPM Date:?1 04/13/2023 Generated for Zoila li/Heidi/Laura on:?04/03/2024 10:12 AM EST
--- OUTSIDE RECORDS SUMMARY | 2024-04-03 10:13 | XMS_ITS ---
Author [facility] Address [address] [place] [address] Care Team Providers Care Bag Tester Name Role Phone Elidia Chadwick Primary Care Provider Jeanne Sheridan Unavailable [phone] Allergies No Known Allergies REASON FOR VISIT Wart(s) Medications Medication SIG (Take, Route, Fr equency, Duration) Notes Start Date End Date Status Iron Active Multivitamin Active Loratadine Active Simvastatin Active Citalopram Hydrobromide Active Vitamin D3 Active Vitamin A Active Ammonium Lactate 12 % 1 application Exte rnally to affected areas of skin to feet except for between the toes Twice a day for 30 days Act howard Social History Tobacco Use: Social History Observation Description Date Details (start date - stop date) Never Smoker NA - NA Alcohol Screen Question Answer Notes Did you have a drink containing alcohol in the p ast year? No Points 0 Interpretation Negative Tobacco use other than smoking: Question Answer Notes Are you an other tobacco user? No Tobacco Control (Standard) Question Answer Notes Tobacco use: Nonsmoker Additional Findings: Tobacco non-user Current no nsmoker Vital Signs Blood pressure systolic 120 mm Hg 03/20/19 25 Blood pressure diastolic 80 mm Hg 025 Height 5ft 6in in 03/20/2024 Weight 222 lbs 03/20/2024 BMI 35.83 kg/m2 03/20/2024 Procedures Procedure Date Ordered Date Performed Result Body Sit e 28874-Htme Destruction, 1-14 03/20/2024 N/A Encounters Encounter Location Date [facility] [place] [address] [facility] [address] [place] [address] 03/20/2024 Jeanne Cope Left foot pain M79.672 and Plantar wart B07.0 Assessments Encounter Date Diagnosis (ICD Code) Assessment Notes Treatment Notes Treatment Clinical Notes Section Notes 03/20/2024 Left foot pain (ICD-10 - M79.672) 03/20/2024 Plantar wart (ICD-10 - B07.0) Plan Of Treatment Pending Test Test Name Order Date 94236-Jewh Destruction, 1-14 03/20/2024 Next Appt Details Follow Up: 6 Weeks, Reason: Provider Name:Heike west, 04/24/2024 12:00:00 PM, [address] [place] [address], [phone], Provider Name:Jeanne Juma main, 06/08/2024 10:15:00 AM, [address] [place] [address], [phone], Procedure Notes * Category Sub-Category Detail Notes Wart Treatment Procedure Verrucae were de brided to pin-point bleeding margins with sterile 15 surgical blade, silver nitrate chemocautery applied, recomm. immune-boosting meds such as zinc, recomm. follow up with topical chemosurgical agents, Pt defers any other forms of tx - 69950 Progress Notes * Marcella PINZON LDOB:1950 (73 yo F)Acc No.[id number]:03/20/2024 Progress Notes Patient:?Marcella PINZON Provider:?Jeanne Cope DPM :1950???Age:73 Y???Sex:Female D ate:03/20/2024 Address:[address] [place] [address] [place] Pcp:Elidia Chadwick Subjective: * Chief Complaints: * [...] surgery 1994/1999mastectomy 2011 * Hospitalization/Major Diagno stic Procedure:?No Hospitalization History. * Family History:?Mother: dece ased, arthritis, brain aneurysm.?Father: , Multiple myeloma.?Maternal Grand Mother: cancer.?Siblings: diabetes, arthritis.? * Social History:?Tobacco Use:?Tobacco use other than smoking?Are you an other tobacco user??No ?Tobacco Control (Standard)?Tobacco use:?Nonsmoker ?Additional Findings: Tobacco non-user?Current nonsmoker ???Drugs/Alcohol:?Drugs?Have you used drugs other than those for medical reasons in the past 12 months??No ?Alcohol Screen?Did you have a drink containing alcohol in the past year??No ?Points?0 ?Interpretation?Negative ???Miscellaneous:?Caffeine: no. ?Children: no. ?Exercise: no. ?Marital status: single. ?Occupation: semi retired. * [...] * Allergies:?N.K.D.A.yes[Aller gies Verified] Objective: * Vitals:?Ht: 5ft 6in, Wt:222, BMI:35.83, Shoe size: 10.5-11, BP:120/80mm Hg, Ht- cm: 167.64 cm, Wt-k.7 kg. [...] defers any other forms of tx - 58029.? * Procedure Codes:?95776 Wart Destruction, 1-14 * Follow Up:?6 Weeks * Images: * Sign off status: Completed true * Provider:?Jeanne Cope DPM Date:?0 03/20/2024 Generated for Zoila li/Heidi/Kaylaitting on:?04/03/2024 10:12 AM EST History and Physical Notes * [...]
--- OUTSIDE RECORDS SUMMARY | 2024-04-03 10:13 | XMS_ITS ---
Author Organization [facility] Address [address] [place] [address] Care Team Providers Care Banking Management Consulting Manager Name Role Phone Elidia Chadwick Primary Care Provider Jeanne Sheridan Unavailable [phone] Allergies No Known Allergies REASON FOR VISIT [...] Ordered Date Performed Result Body Sit e 60536-Qeve Destruction, 1-14 02/13/2024 N/A Encounters Encounter Location Date Provider Diagnosis [facility] [address] [place] [address] 02/13/2024 Jeanne Cope Left foot pain M79.672 and Plantar wart B07.0 Assessments Encounter Date Diagnosis (ICD Code) Assessment Notes Treatment Notes Treatment Clinical Notes Section Notes 02/13/2024 Left foot pain (ICD-10 - M79.672) 02/13/2024 Plantar wart (ICD-10 - B07.0) Plan Of Treatment Pending Test Test Name Order Date 36236-Fmhu Destruction, 1-14 02/13/2024 Next Appt Details Follow Up: 6 Weeks, Reason: Provider Name:Heike west, 04/24/2024 12:00:00 PM, [address] [place] [address], [phone], Provider Name:Jeanne main, 06/08/2024 10:15:00 AM, [address] [place] [address], [phone], Procedure Notes * Category Sub-Category Detail Notes Wart Treatment Procedure Verrucae were de brided to pin-point bleeding margins with sterile 15 surgical blade, silver nitrate chemocautery applied, recomm. immune-boosting meds such as zinc, recomm. follow up with topical chemosurgical agents, Pt defers any other forms of tx - 36871 Progress Notes * Marcella PINZON LDOB:1950 (73 yo F)Acc No.[id number]:02/13/2024 Progress Notes Patient:?KAILAMarcella Provider:?Jeanne Cope DPM :1950???Age:73 Y???Sex:Female D ate:02/13/2024 Address:[address] [place], [place] [address] [facility] Pcp:Elidia Chadwick Subjective: * Chief Complaints: * [...] reviewed and reconciled with the patient * Allergies:?N.K.D.A.yes[Tristan rao Verified] Objective: * Vitals:?Ht: 5ft6in, Wt:222, BMI:35.83, [...] defers any other forms of tx - 57025.? * Procedure Codes:?42831 Wart Destruction, 1-14 * Follow Up:?6 Weeks * Images: * Sign off status: Completed true * Provider:?Jeanne Cope DPM Date:?1 04/15/2023 Generated for Zoila li/Heidi/eTransmitting on:?04/03/2024 10:12 AM EST History and Physical [...]
--- OUTSIDE RECORDS SUMMARY | 2024-04-03 10:13 | XMS_ITS | Patient Health Record ---
Author [facility] Address [address] [facility] [place] [address] Care Team Providers Care Manager Harbor Name Role Phone Elidia Chadwick Primary Care Provider Jeanne Sheridan Unavailable [phone] Allergies No Known Allergies Reason For Referral No Information Medications Medication SIG (Take, Route, Fr equency, Duration) Notes Start Date End Date Status Iron Active Multivitamin Active Loratadine Active Vitamin D3 Active Vitamin A Active Ammonium Lactate 12 % 1 application Exte rnally to affected areas of skin to feet except for between the toes Twice a day for 30 days Act howard Simvastatin Active Citalopram Hydrobromide Active Social History Tobacco Use: Social History [...] Additional Findings: Tobacco non-user Current no nsmoker Problems Problem Type SNOMED Code ICD Code Onset Dates Problem Status W/U Status Risk Notes Problem Plantar wart (78954174) Plantar wart (B07.0) Active confirmed Vital Signs Blood pressure diastolic 80 mm Hg 03/20/2024 Height 5ft 6in in 03/20/2024 Blood pressure systolic 120 mm Hg 03/20/2024 Weight 222 lbs 03/20/2024 BMI 35.83 kg/m2 03/20/2024 Procedures Procedure Date Ordered Date Performed Result Body Sit e 59030-Huvr Destruction, 1-14 12/18/2023 N/A 43891-Fxlm Destruction, 1-01/13/2024 N/A 87384-Tpzv Destruction, -02/13/2024 N/A 16717-Doqf Destruction, 1-03/20/2024 N/A Encounters Encounter Location Date Provider Diagnosis [address] [address] 12/18/2023 Jeanne Cope Xerosis of skin L85.3 ; Left foot pain M79.672 and Plantar wart B07.[address] [address] 01/13/2024 Jeanne Cope Xerosis of skin L85.3 ; Left foot pain M79.672 and Plantar wart B07.[address] [address] 02/13/2024 Jeanne Cope Left foot pain M79.672 and Plantar wart B07.[address] [address] 03/20/2024 Jeanne Cope Left foot pain M79.672 and Plantar wart B07.[address] [address] 12/16/2023 Jeanen Cope [address] [address] 01/10/2024 Jeanne Cope [address] [address] 02/11/2024 Jeanne Cope [address] [address] 12/03/2023 Jeanne Cope Assessments Encounter Date Diagnosis (ICD Code) Assessment Notes Treatment Notes Treatment Clinical Notes Section Notes 12/18/2023 Xerosis of skin (ICD-10 - L85.3) 01/13/2024 Xerosis of skin (ICD-10 - L85.3) 02/13/2024 Left foot pain (ICD-10 - M79.672) 03/20/2024 Left foot pain (ICD-10 - M79.672) 01/13/2024 Left foot pain (ICD-10 - M79.672) 12/18/2023 Left foot pain (ICD-10 - M79.672) 01/13/2024 Plantar wart (ICD-10 - B07.0) 02/13/2024 Plantar wart (ICD-10 - B07.0) 12/18/2023 Plantar wart (ICD-10 - B07.0) 03/20/2024 Plantar wart (ICD-10 - B07.0) Plan Of Treatment Pending Test Test Name Order Date 85486-Xqto Destruction, 1-12/18/2023 01072-Rlux Destruction, -14 01/13/2024 75657-Evso Destruction, -14 02/13/2024 83456-Eobu Destruction, 1-14 03/20/2024 Next Appt Details Provider Name:Heike west, 04/24/2024 12:00:00 PM, [address] [place] [address], [phone], Provider Name:Jeanne main, 06/08/2024 10:15:00 AM, [address] [place] [address], [phone], Insurance Providers Payer Name Payer Address Payer Phone Subscriber Number Group Number Insured Name Patient Relationship to Insured Coverage Start Date Coverage End Date Medicare National Govt Svcs Inc [address] [place] [address] [phone] [id number] Marcella Pinzon Self - patient is the insured 8 [employer] Blue Shield [address] [place] [address] [id number] Marcella Pinzon Self - patient is the insured Medical (General) History Medical History History ICD Code Arthritis CAD (Cholesterol) Cancer Cataracts Depression Sickle cell trait precancerous polyps Surgical History Surgery Date(Month/Year) lumpectomy 1992 foot surgery mastectomy 2011
== END 2024-04-03 10:11 | disposition home or self-care (01) ==
PROVIDERS: PCP Internal Medicine; Visit Provider Internal Medicine
DX: R19.7 Diarrhea, unspecified (principal); R73.02 Impaired glucose tolerance (oral); E66.9 Obesity, unspecified; E78.00 Pure hypercholesterolemia, unspecified; F34.1 Dysthymic disorder

== ENCOUNTER → 2024-04-03 09:42 | Outpatient (BNVA) | payer MEDICARE, SELFPAY | PROVIDERS: PCP Internal Medicine; Visit Provider Internal Medicine | DX: R19.7 Diarrhea, unspecified (principal); R73.02 Impaired glucose tolerance (oral); E66.9 Obesity, unspecified; E78.00 Pure hypercholesterolemia, unspecified; F34.1 Dysthymic disorder | CPT/HCPCS: 96127; 99212 ==

== ENCOUNTER 2024-05-01 12:50 | Outpatient (AMB) | payer MEDICARE, SELFPAY ==
--- NOTE | 2024-05-01 12:54 | MHC.OFFVIS ---
Vital Signs 05/01/24 12:55 Height 5 ft 6 in BP 136/66 Blood Pressure Location Rt brachial Position Sitting Pulse 70 Pulse Source Pulse Oximeter Pulse Oximetry (%) 99 Oxygen Delivery Method Room Air Intake Visit Reasons: 3 month follow up Intake Note: ESTABLISHED PATIENT for mgmt of fecal abn. Labs done Chief Complaint; C/O persistent chronic sx. Pt states that the sx are improving but not resolved. Pt still experiencing intermittent loose stools. When they are more formed, they typically present somewhat skinny and appear darker per pt, but not black or tarry. Pt denies any additional concerns at this time. Equipment Analyst Required: No Accompanied by: Self / Same As Patient Allergies lactose Allergy (Intermediate, Verified 05/01/24 12:55) Flatulence HPI HPI 3 month follow up: Details: LAST VISIT: Tubular adenoma Irritable bowel syndrome with both constipation and diarrhea Postprandial abdominal bloating Postprandial diarrhea Plan Will order CRP if positive will check stool calprotectin. Will check vitamin B12, folate and vitamin-D levels. Patient will return in 3 months and if she continues to have symptoms will send her for colonoscopy earlier. Currently patient does not have any melena, hematochezia, unintentional weight loss. Denies any family history of CRC. Patient will increase fiber intake may take probiotics. Increase fluid intake and activity to promote better bowel motility. Discussed with patient low FODMAP diet. List of food recommended as well as list of food to avoid given to patient. Patient is agreeable to current plan of care and verbalizes understanding of instructions. She was given the opportunity to ask questions and all questions answered. ? Thank you for allowing me to participate in her care Orders Orders Vitamin B12 and Folate Today R19.7 C Reactive Protein Today K58.9 Vitamin D 25-OH (D2 and D3) Today E55.9 TODAY'S VISIT: Patient is here today for follow-up and to discuss lab results as well as discuss prepping for colonoscopy. Lab work discussed with patient. Normal CRP and vitamin-D levels. Unlikely her symptoms are related to inflammatory bowel disease more IBS as discussed with patient during this visit. Symptoms improved, however still will occasionally have postprandial loose stools and sometimes stooling is not related to meals at all. When patient has a bowel movement that it is semi normal or firm is very small and very thin. Stool is dark but denies melena. Patient denies hematochezia. States that she is taking Metamucil and feels like it is helping. Patient is trying to avoid also dietary triggers. Denies any dyspepsia, dysphagia or odynophagia. Patient denies any issues with anesthesia in the past. No history of sleep apnea. Not on any anticoagulation medication. Last colonoscopy in [address] Okeefe. One tubular adenoma without high-grade dysplasia or carcinoma found. [facility] Medical History Tubular adenoma Hx of radiation therapy Lab test negative for COVID-19 virus Hx of sickle cell trait Depression Sleep apnea Elevated cholesterol Hx of cardiac murmur Obesity Incomplete emptying of bladder Wrist fracture, right Osteopenia Peripheral vascular disease Hypercholesterolemia History of breast cancer Dysthymia Surgical History H/O colonoscopy History of left mastectomy History of cataract surgery H/O foot surgery H/O breast reconstruction Family History Father Multiple myeloma Mother Hypertension Brain aneurysm Social History Housing: House Alcohol intake: never Patient Tobacco Use Status: Never used Tobacco Tobacco use type: Cigarette e-Cigarette/Vaping Use: Never Used Second Hand Smoke Exposure: No service: No Current occupational status: retired Current occupational exposures/hazards: No Cognitive needs: No Hearing needs: No Vision needs: Yes Review of Systems Const Denies weight gain and Denies weight loss ENT Reports no additional complaints, Denies dysphagia and Denies odynophagia Card Reports no additional complaints Resp Reports no additional complaints GI Denies abdominal pain, Denies belching, Denies melena, Denies bloating, Denies change in bowel habits, Reports constipation, Denies dysphagia, Denies excessive flatus, Denies dyspepsia, Denies heartburn, Denies diarrhea, Reports loose stools, Denies nausea, Denies odynophagia and Denies vomiting Reports no additional complaints Musc Reports no additional complaints Neuro Reports no additional complaints Psych Reports no additional complaints Endo Reports no additional complaints Physical Exam Vital Signs: Last Vital Signs Pulse 70 05/01/24 12:55 BP 136/66 05/01/24 12:55 Pulse Ox 99 05/01/24 12:55 Oxygen Delivery Method Room Air 05/01/24 12:55 Const General: healthy appearing, no acute distress and well developed Nutritional Appearance: well nourished Orientation/consciousness: patient oriented x3 Resp Effort & Inspection: normal respiratory effort, able to speak in complete sentences, no tracheal deviation and symmetric chest movement Auscultation: clear to auscultation bilaterally Cardio Rate: regular rate GI Inspection: Yes normal to inspection and No distended Palpation (GI): Soft to palpation, not firm, nontender and No hepatosplenomegaly present Auscultation: normal bowel sounds General: Yes no CVA tenderness Back/Spine/Pelvis Back: no CVA tenderness Skin General skin exam: elasticity normal, turgor normal and dry skin Neuro General: patient oriented x3 Psych Appearance: grossly normal Mental Status: mental status grossly normal Assessment & Plan Assessment & Plan (1) Tubular adenoma: Code(s): D36.9 - Benign neoplasm, unspecified site Category: Medical (2) Irritable bowel syndrome with both constipation and diarrhea: Code(s): K58.2 - Mixed irritable bowel syndrome (3) Postprandial abdominal bloating: Code(s): R14.0 - Abdominal distension (gaseous) (4) Postprandial diarrhea: Code(s): K52.9 - Noninfective gastroenteritis and colitis, unspecified (5) Screen for colon cancer: Code(s): Z12.11 - Encounter for screening for malignant neoplasm of colon Plan Discussed with patient what to expect before during and after procedure. Patient can take extra fiber to help bulk stool. And she was start taking Dulcolax in the evening to help her evacuate better. Denies melena, hematochezia, unintentional weight loss or ribbon like stools. Due for colonoscopy this year. Patient denies any history of sleep apnea. Not on any anticoagulation medication. Patient reports that she had hard time waking up after anesthesia. Patient reports that next time she would like to receive less medication to prevent somnolence. What to expect before during and after procedure discussed with patient. Stressed the importance of good bowel prep and clear liquid diet day before procedure. Patient will call our office if she will have any GI concerning symptoms. Message sent to surgical schedulers to book procedure for patient. I will see her after the procedure, sooner on as needed basis. She is agreeable to this plan and verbalizes understanding of instructions. She was given the opportunity to ask questions and all questions answered. Thank you for allowing me to participate in her care Medications: New bisacodyl (Dulcolax (bisacodyl)) 10 mg (2 x 5 mg) PO BEDTIME 180 tabs 4RF polyethylene glycol 3350 (Miralax) As directed by gastroenterology department at [facility] 238 grams PO ONCE 238 grams 0RF Z12.11 - Encounter for screening for malignant neoplasm of colon Coding Level of Care Code Est Pt Level 4 (95795) Complex EM visit Add On G2211 Diagnoses Tubular adenoma D36.9 Irritable bowel syndrome with both constipation and diarrhea K58.2 Postprandial abdominal bloating R14.0 Postprandial diarrhea K52.9 Screen for colon cancer Z12.11 Time Spent (min) 35 Comment 20 minutes spent with patient and additional 15 minutes spent reviewing her records
[2024-05-01 12:55] VITALS: BP 136/66; PULSE 70; O2SAT 99
--- OUTSIDE RECORDS SUMMARY | 2024-05-01 14:22 | XMS_ITS ---
Author Organization [facility] Address [address] [place] [address] Care Team Providers Care Shoe Handler Name Role Phone Elidia Chadwick Primary Care Provider UnavailJeanne Bain Unavailable [phone] Heike Del Valle [phone] Encounters Encounter Location Date Provider Diagnosis [address] [address] 04/24/2024 Heike Del Valle Plan Of Treatment Next Appt Details Provider Name:Jeanne main, 06/08/2024 10:15:00 AM, [address] [place] [address], [phone], Progress Notes * Marcella PINZON LDOB:1950 (73 yo F)Acc No.[id number]:04/24/2024 Progress Notes Patient:?KAILAMarcella MELO Provider:?Heike Del Valle DPM :1950???Age:73 Y???Sex:Female D ate:04/24/2024 Address: [place] Pcp:Elidia Chadwick Subjective: * Chief Complaints: * ??? * Medical History:? Objective: * Vitals:? Assessment: Plan: * Treatment: * Images: * The named appointment provid er may or may not be the originator of this progress note, and it is not deemed complete until electronically signed by the appointment provider. Sign off status: Pending * Provider:?Heike Del Valle DPM Date:?08/2024 Generated for Zoila li/Heidi/Laura on:?05/01/2024 02:22 PM EDT
--- OUTSIDE RECORDS SUMMARY | 2024-05-01 14:23 | XMS_ITS | Patient Health Record ---
Author [facility] Address [address] [facility] [place] [address] Care Team Providers Care Clinical Technologist Name Role Phone FarrukhLadiaaron Primary Care Provider Jeanne Sheridan Unavailable [phone] Heike Del Valle Unavailable [phone] Allergies No Known Allergies Reason For Referral [...] W/U Status Risk Notes Problem Plantar wart (28442254) Plantar wart (B07.0) Active confirmed Vital Signs Blood pressure diastolic 80 mm Hg 03/20/2024 Height 5ft 6in in 03/20/2024 Blood pressure systolic 120 mm Hg 03/20/2024 Weight 222 lbs 03/20/2024 BMI 35.83 kg/m2 03/20/2024 Procedures Procedure Date Ordered Date Performed Result Body Sit e 59436-Fwpb Destruction, 1-12/18/2023 N/A 03919-Rnwd Destruction, -01/13/2024 N/A 21854-Qmos Destruction, -02/13/2024 N/A 71813-Esmk Destruction, -03/20/2024 N/A Encounters Encounter Location Date Provider Diagnosis [address] [address] 12/18/2023 Jeanne Cope Xerosis of skin L85.3 ; Left foot pain M79.672 and Plantar wart B07.[address] [address] 01/13/2024 Jeanne Cope Xerosis of skin L85.3 ; Left foot pain M79.672 and Plantar wart B07.[address] [address] 02/13/2024 Jeanne Cope Left foot pain M79.672 and Plantar wart B07.[address] [address] 03/20/2024 Jeanne Cope Left foot pain M79.672 and Plantar wart B07.[address] [address] 12/16/2023 Jeanne Cope [address] [address] 01/10/2024 Jeanne Cope [address] [address] 02/11/2024 Jeanne Cope [address] [address] 04/21/2024 Jeanne Cope [address] [address] 12/03/2023 Jeanne Cope Assessments Encounter Date Diagnosis [...] Treatment Pending Test Test Name Order Date 34260-Xsuj Destruction, 1-14 12/18/2023 90545-Btef Destruction, 1-14 01/13/2024 27338-Pvyq Destruction, 1-14 02/13/2024 05069-Inux Destruction, 1-14 03/20/2024 Next Appt Details Provider Name:Jeanne Dennison etelvina, 06/08/2024 10:15:00 AM, [address] [facility], [place], [address], Insurance Providers Payer Name Payer Address Payer Phone Subscriber Number Group Number Insured Name Patient Relationship to Insured Coverage Start Date Coverage End Date Medicare National Govt Svcs Inc [address] [place] [address] [id number] Marcella Pinzon Self - patient is the insured 8 [employer] Blue Shield [address] [place] [address] [id number] Marcella Pinzon Self - patient is the insured Medical (General) History Medical History History ICD Code Arthritis CAD (Cholesterol) Cancer Cataracts Depression Sickle cell trait precancerous polyps Surgical History Surgery Date(Month/Year) lumpectomy 1992 foot surgery mastectomy 2011
--- OUTSIDE RECORDS SUMMARY | 2024-05-01 14:23 | XMS_ITS ---
Author Organization [facility] Address [address] [place] [address] Care Team Providers Care Gymnastic Coach Name Role Phone Elidia Chadwick Primary Care Provider Jeanne Sheridan [phone] REASON FOR VISIT cx 04/24/2024 appt Encounters Encounter Location Date Provider Diagnosis [address] [address] 04/21/2024 Jeanne Cope Plan Of Treatment Next Appt Details Provider Name:Jeanne main, 06/08/2024 10:15:00 AM, [address] [place] [address], [address], Progress Notes * Marcella PINZON LDOB:1950 (73 yo F)Acc No.[id number]:04/21/2024 Patient:?Marcella PINZON :1950???Age:73 Y???Sex:Female [address] [place], [address] * true * Date:? Generated for Printi ng/Faxing/eTransmitting on:?05/01/2024 02:22 PM EDT
--- OUTSIDE RECORDS SUMMARY | 2024-05-01 14:23 | XMS_ITS ---
Author Organization [facility] Address [address] [place] [address] Care Team Providers Care Nonprofit Financial Controller Name Role Phone Elidia Chadwick Primary Care Provider Jeanne Sheridan Unavailable [phone] Allergies No Known Allergies REASON FOR VISIT [...] Tobacco non-user Current no nsmoker Vital Signs Height 5ft 6in in 03/20/2024 Weight 222 lbs 03/20/2024 BMI 35.83 kg/m2 03/20/2024 Blood pressure systolic 120 mm Hg 03/20/19 25 Blood pressure diastolic 80 mm Hg 025 Procedures Procedure Date Ordered Date Performed Result Body Sit e 34305-Zhjb Destruction, 1-14 03/20/2024 N/A Encounters Encounter Location Date [facility] [place] [place] [address] 03/20/2024 Jeanne Cope Left foot pain M79.672 and Plantar wart B07.0 Assessments Encounter Date Diagnosis (ICD Code) Assessment Notes Treatment Notes Treatment Clinical Notes Section Notes 03/20/2024 Left foot pain (ICD-10 - M79.672) 03/20/2024 Plantar wart (ICD-10 - B07.0) Plan Of Treatment Pending Test Test Name Order Date 48662-Tddk Destruction, -14 03/20/2024 Next Appt Details Follow Up: 6 Weeks, Reason: Provider Name:Jeanne Dennison etelvina, 06/08/2024 10:15:00 AM, [address] [place], [address], Procedure Notes * Category Sub-Category Detail Notes Wart Treatment Procedure Verrucae were de brided to pin-point bleeding margins with sterile 15 surgical blade, silver nitrate chemocautery applied, recomm. immune-boosting meds such as zinc, recomm. follow up with topical chemosurgical agents, Pt defers any other forms of tx - 40696 Progress Notes * Marcella PINZON LDOB:1950 (73 yo F)Acc No.[id number]:03/20/2024 Progress Notes Patient:?Marcella PINZON Provider:?Jeanne Cope DPM :1950???Age:73 Y???Sex:Female D ate:03/20/2024 Address:[address] [place] [address] [facility] Pcp:Elidia Chadwick Subjective: * Chief Complaints: * ???Wart(s) * HPI: ???Skin problems:?Pt States PCP Visit: ?DATE?10/30/2023 * ROS:?General/Constitutional:?Nausea?denies.?Vomiting?denies.?Hunger Thirst?denies.?Loss appetite?denies.?Chills?denies.?Fatigue?denies.?Fever?denies.?Night Sweats?denies.?Unexplained weight loss?denies.?Unexplained weight gain?denies.?HEENTM:?Dentures?denies.?Dizziness?denies.?Glasses/contacts?denies.?Retinopathy?de nies.?Blurred/double vision?denies.?TMJ?denies.?Discharge/drainage?denies.?Implants?denies.?Sore throat?denies.?Dental implants?denies.?Hard of hearing ?denies.?Difficulty chewing/swallowing/speaking?denies.?Nose bleeds?denies.?Sore mouth?denies.?Respiratory:?On Oxygen?denies.?Pneumonia/pleurisy?denies.?Bronchitis?denies.?Emphysema?denies.?C oughing?denies.?Cough blood?denies.?Shortness of breath?denies.?Wheezing?denies.?Cardiovascular:?Pacemaker?denies.?MVP?denies.?WPW?denies.?CHF?denies.?Heart attack?denies.?Septal defect?denies.?Rapid beat?denies.?Chest pain ?denies.?Atrial Fib.?denies.?Murmur/Palpitations?admits.?Gastrointestinal:?Hemorrhoids?denies.?Stomach/Abdominal pain?denies.?Dark blood stool?denies.?Irritable bowel ?denies.?Constipation?denies.?Diarrhea?denies.?Hematology:?Swelling?denies.?Clots?denies.?Varicose Veins?denies.?Bruising?denies.?Bleeding problem?denies.?Genitourinary:?Blood urine?denies.?Frequent/Painfu/urination/bladder control?denies.?Kidney stones?denies.?Infection (UTI)?denies.?Nephropathy?denies.?sex trans dis (STD)?denies.?Prostate?denies.?Musculoskeletal:?David?denies.?Bunions?denies.?Back Pain?denies.?Muscle Cramps/ Resting?denies.?Muscle cramps / walking?denies.?Generalized aches and pains?denies.?Weakness?denies.?Integ.:?[place]?denies.?Scars?denies.?Corns/calluses?admits.?Ingrown nails?denies.?Painful nails?denies.?Open Sores?denies.?Rashes?denies.?Neurologic:?Difficulty sleeping?denies.?Brain disorder?denies.?Numbness?denies.?Balance trouble?denies.?Confusion?denies.?Fainting/blackouts?denies.?Tingling?denies.?Tr emors?denies.? * Medical History:? * Surgical History:?lumpectomy 1991foot surgery 1994/1999mastectomy 2011 * Hospitalization/Major Diagno stic [...] and reconciled with the patient * Allergies:?N.K.D.A.yes[Aller maira Verified] Objective: * Vitals:?Ht: 5ft 6in, Wt:222, [...] defers any other forms of tx - 62933.? * Procedure Codes:?54163 Wart Destruction, 1-14 * Follow Up:?6 Weeks * Images: * Sign off status: Completed true * Provider:?Jeanne Cope DPM Date:?0 03/20/2024 Generated for Zoila li/Heidi/eTransmitting on:?05/01/2024 02:22 PM EDT History and Physical Notes * HPI (History [...]
== END 2024-05-01 14:35 | disposition home or self-care (01) ==
LOC: HO.HGI 12:51
PROVIDERS: PCP Internal Medicine; Visit Provider Nurse Practitioner Family
DX: D36.9 Benign neoplasm, unspecified site (principal); K58.2 Mixed irritable bowel syndrome; R14.0 Abdominal distension (gaseous); Z12.11 Encounter for screening for malignant neoplasm of colon
CPT/HCPCS: 99214; G2211

== ENCOUNTER → 2024-05-01 12:50 | Outpatient (BNVA) | payer MEDICARE, SELFPAY | PROVIDERS: PCP Internal Medicine; Visit Provider Nurse Practitioner Family | DX: D36.9 Benign neoplasm, unspecified site (principal); K58.2 Mixed irritable bowel syndrome; R14.0 Abdominal distension (gaseous); K52.9 Noninfective gastroenteritis and colitis, unspecified | CPT/HCPCS: 99212 ==

== ENCOUNTER → 2024-05-19 12:57 | Outpatient (AMB) | payer MEDICARE, SELFPAY ==
--- NOTE | 2024-05-19 12:57 | A.OFFPC_ITS ---
Intake Visit Reasons: Traveling to [facility] Systems Applications Programming Lead Required: No Tow Truck Driver: Not Required per policy Accompanied by: Self / Same As Patient Allergies lactose Allergy (Intermediate, Verified 05/19/24 12:58) Flatulence Medication List - Last Reconciled 05/19/24 by Elidia Chadwick MD atovaquone-proguanil 250-100 mg take 1 tab once daily x2days before exposure, during time in area, and x7 days after leaving area PO bisacodyl (Dulcolax (bisacodyl)) 10 mg (2 x 5 mg) PO BEDTIME cholecalciferol (vitamin D3) 50 mcg PO DAILY citalopram 10 mg PO DAILY lactase (Lactase Fast Acting) 9,000 units PO QID PRN multivitamin 1 tab PO DAILY polyethylene glycol 3350 (Miralax) 238 grams PO ONCE simvastatin 10 mg PO BEDTIME vitamin A palmitate 3,000 mcg PO DAILY Tobacco use date assessed: 04/03/24 Fall risk assessment: No Falls in past year Last assessed Fall Risk: 05/19/24 Dental Screening Dental Screen Date: 04/03/24 HPI Traveling to [facility] HPI Details traveling to August 20 to September 07 patient has a trip to [facility] in August 20 up to September 07 and asking for malaria prophylaxis. Mefloquine can not be given for patients with mood disorder, chloroquine can not be given with citalopram, doxycycline has some problems with photo toxicity or photodermatitis. Will send in atovaquone 2 days before the trip up to 1 week after the trip. This medication is taken once a day. Patient has no renal problem. [facility] Medical History Tubular adenoma Hx of radiation therapy Lab test negative for COVID-19 virus Hx of sickle cell trait Depression Sleep apnea Elevated cholesterol Hx of cardiac murmur Obesity Incomplete emptying of bladder Wrist fracture, right Osteopenia Peripheral vascular disease Hypercholesterolemia History of breast cancer Dysthymia Surgical History H/O colonoscopy History of left mastectomy History of cataract surgery H/O foot surgery H/O breast reconstruction Family History Father Multiple myeloma Mother Hypertension Brain aneurysm Social History Housing: House Alcohol intake: never Patient Tobacco Use Status: Never used Tobacco Tobacco use type: Cigarette e-Cigarette/Vaping Use: Never Used Second Hand Smoke Exposure: No service: No Current occupational status: retired Current occupational exposures/hazards: No Cognitive needs: No Hearing needs: No Vision needs: Yes Questionnaire Thrive Questionnaire Date Thrive assessed: 04/03/24 DAKOTA-7 AMB Questionnaire DAKOTA-7 Date DAKOTA - 7 assessed: 04/03/24 Source: Developed by Drs. Tong Garcia, Sayda Moran, Rudy Lopez and colleagues, with an educational georgiana from [employer]. Physical exam (Primary Care) Tobacco/Smoking Status: Tobacco use Status Tobacco use date assessed 04/03/24 05/19/24 12:59 Patient Tobacco Use Status Never used Tobacco 05/19/24 12:59 Tobacco use type Cigarette 05/19/24 12:59 e-Cigarette/Vaping Use Never Used 05/19/24 12:59 Thrive Assessment: Date of Thrive Assessment Date Thrive assessed 04/03/24 05/19/24 12:59 Telehealth Telehealth Telehealth Platform: [employer] Location of provider rendering services: practice address Location of patient: address on file Patient Identification confirmed using: Name, : Yes Telehealth method: video Patient verbally consented to treatment: Yes Patient verbally consented to billing insurance company: Yes Patient informed of any privacy concerns related to visit: Yes Minutes spent on Phone/Video with Pt.: 15 Coding Level of Care Code Est Pt Level 3 (14684) Diagnoses Need for malaria prophylaxis Z29.89 Assessment & Plan Assessment & Plan (1) Need for malaria prophylaxis: Code(s): Z29.89 - Encounter for other specified prophylactic measures Category: Medical Plan History of Present Illness The patient is a 73-year-old female presenting with concerns about malaria prop hylaxis for an upcoming trip to [facility]. She is preparing to leave on August 20 and will return on September 07. The patient is seeking appropriate malaria prevention medication that accommodates her plans to spend significant time outdoors, which makes doxycycline a less viable option due to its potential for causing photosensitivity. Her medical history includes anxiety, depression, and dysthymia, with her mental health management involving citalopram. Considering her current medication regimen and ongoing mental health management, attention is directed towards avoiding drug interactions and ensuring the selected prophylactic does not exacerbate mental health symptoms. The patient also has a history of obesity; however, this was not addressed as a primary issue in this visit. Review of Systems - Psychiatric: Reports stable depression and anxiety, considering medication adjustment in consultation with a psychiatrist. - Dermatological: Denied any past adverse reactions to photosensitizing medications. Plan The malaria prophylaxis for the upcoming trip was addressed with atovaquone, chosen because of its non-phototoxic properties and compatibility with the patient's current mental health medications. We decided on a dosing regimen starting two days before departure, continuing throughout the travel, and concluding seven days post-return to ensure full coverage against malaria. Additionally, we verified that atovaquone does not significantly interact with the patient's existing citalopram therapy. Continual monitoring of her mental health with her psychiatrist is planned to manage any medication adjustments or psychological support needed. No immediate additional mental health assessments were warranted during this consultation. Patient was informed and verbally consented to the use of an ambient scribe for clinic note documentation during this visit. Discussion Notes In today's conversation, I explored options for malaria prophylaxis appropriate for the patient's upcoming trip to [facility], considering her plans to be outdoors extensively. We determined that atovaquone was the most suitable prophylactic due to its effectiveness and lack of photosensitivity side effects. I discussed its use, starting two days before travel and continuing through to seven days after returning. We assessed potential interactions with her current citalopram regimen and confirmed the absence of contraindications. Clarifying these medical decisions and addressing her concerns about drug interactions contributed to her understanding and agreement with the management plan. I advised maintaining follow-up with her psychiatrist regarding any additional psychological support needs. Patient Instructions - Begin taking atovaquone two days before your trip. - Continue taking atovaquone daily throughout your trip and for seven days after returning. - Monitor your mental health symptoms and stay in touch with your psychiatrist. - Keep protected from mosquito bites by wearing appropriate clothing and using insect repellent. - Adhere to any additional recommendations your psychiatrist provides regarding medication management. - Reach out if you experience any adverse effects or have further questions regarding your trip preparation. Medications: New atovaquone-proguanil 250-100 mg take 1 tab once daily x2days before exposure, during time in area, and x7 days after leaving area PO 27 tabs 0RF Z29.89 - Encounter for other specified prophylactic measures
--- OUTSIDE RECORDS SUMMARY | 2024-05-19 15:06 | XMS_ITS ---
Author Organization [facility] Address [address] [place] [address] Care Team Providers Care Drive Man Name Role Phone Elidia Chadwick Primary Care Provider Jeanne Sheridan [phone] REASON FOR VISIT cx 04/24/2024 appt Encounters Encounter Location Date Provider Diagnosis [address] [address] 04/21/2024 Jeanne Cope Plan Of Treatment Next Appt Details Provider Name:Jeanne main, 06/08/2024 10:15:00 AM, [address] [place] [address], [phone], Progress Notes * Marcella PINZON LDOB:1950 (73 yo F)Acc No.[id number]:04/21/2024 Patient:?Marcella PINZON :1950???Age:73 Y???Sex:Female [address] [place], [address] * true * Date:? Generated for Printi ng/Faxing/eTransmitting on:?05/19/2024 03:06 PM EDT
--- OUTSIDE RECORDS SUMMARY | 2024-05-19 15:06 | XMS_ITS | Patient Health Record ---
[facility] Address [address] [facility] [place] [address] Care Team Providers Care Signal Wirer Name Role Phone FarruhkLadiaaron Primary Care Provider Jeanne Sheridan Unavailable [phone] Heike Del Valle Unavailable [phone] Allergies No Known Allergies Reason For Referral [...] W/U Status Risk Notes Problem Plantar wart (14970384) Plantar wart (B07.0) Active confirmed Vital Signs Blood pressure diastolic 80 mm Hg 03/20/2024 Height 5ft 6in in 03/20/2024 Blood pressure systolic 120 mm Hg 03/20/2024 Weight 222 lbs 03/20/2024 BMI 35.83 kg/m2 03/20/2024 Procedures Procedure Date Ordered Date Performed Result Body Sit e 91966-Dfiq Destruction, 1-12/18/2023 N/A 76345-Ifec Destruction, -01/13/2024 N/A 54565-Qrpq Destruction, -02/13/2024 N/A 94427-Mdzu Destruction, -03/20/2024 N/A Encounters Encounter Location Date Provider Diagnosis [address] [address] 12/18/2023 Jeanne Cope Xerosis of skin L85.3 ; Left foot pain M79.672 and Plantar wart B07.[address] [address] 01/13/2024 Jeanne Cope Xerosis of skin L85.3 ; Left foot pain M79.672 and Plantar wart B07.[address] [address] 02/13/2024 Jeanne Cope Left foot pain M79.672 and Plantar wart B07.[address] [address] 03/20/2024 Jeanne Cope Left foot pain M79.672 and Plantar wart B07.[address] [address] 12/16/2023 Jeanne Cope [address] [address] 01/10/2024 Jeanne Cope [address] [address] 02/11/2024 Jeanne Cope [address] [address] 04/21/2024 Jeanne Cope [address] [address] 12/03/2023 Jeanne Cope Assessments Encounter Date Diagnosis [...] Treatment Pending Test Test Name Order Date 51313-Obsp Destruction, 1-14 12/18/2023 54636-Jrou Destruction, 1-14 01/13/2024 18627-Qega Destruction, 1-14 02/13/2024 55614-Djan Destruction, 1-14 03/20/2024 Next Appt Details Provider Name:Jeanne Dennison etelvina, 06/08/2024 10:15:00 AM, [address] [facility], [place], [address], Insurance Providers Payer Name Payer Address Payer Phone Subscriber Number Group Number Insured Name Patient Relationship to Insured Coverage Start Date Coverage End Date Medicare National Govt Sv[employer] [address] [place] [address] [id number] Marcella Pinzon Self - patient is the insured 8 [employer] Blue [employer] [address] [place] [address] [id number] Marcella Pinzon Self - patient is the insured Medical (General) History Medical History History ICD Code Arthritis CAD (Cholesterol) Cancer Cataracts Depression Sickle cell trait precancerous polyps Surgical History Surgery Date(Month/Year) lumpectomy 1992 foot surgery mastectomy 2011
--- OUTSIDE RECORDS SUMMARY | 2024-05-19 15:06 | XMS_ITS ---
[facility] Address [address] [place] [address] Care Team Providers Care Grain Broker Name Role Phone Elidia Chadwick Primary Care Provider Jeanne Sheridan Unavailable [phone] Allergies No Known Allergies REASON FOR VISIT [...] Ordered Date Performed Result Body Sit e 84335-Wmpl Destruction, 1-14 03/20/2024 N/A Encounters Encounter Location Date [facility] [address] [place] [address] 03/20/2024 Jeanne Cope Left foot pain M79.672 and Plantar wart B07.0 Assessments Encounter Date Diagnosis (ICD Code) Assessment Notes Treatment Notes Treatment Clinical Notes Section Notes 03/20/2024 Left foot pain (ICD-10 - M79.672) 03/20/2024 Plantar wart (ICD-10 - B07.0) Plan Of Treatment Pending Test Test Name Order Date 13254-Bjkt Destruction, -14 03/20/2024 Next Appt Details Follow Up: 6 Weeks, Reason: Provider Name:Jeanne Dennison etelvina, 06/08/2024 10:15:00 AM, [address] [place], [address], Procedure Notes * Category Sub-Category Detail Notes Wart Treatment Procedure Verrucae were de brided to pin-point bleeding margins with sterile 15 surgical blade, silver nitrate chemocautery applied, recomm. immune-boosting meds such as zinc, recomm. follow up with topical chemosurgical agents, Pt defers any other forms of tx - 88782 Progress Notes * Marcella PINZON LDOB:1950 (73 yo F)Acc No.[id number]:03/20/2024 Progress Notes Patient:?Marcella PINZON Provider:?Jeanne Cope DPM :1950???Age:73 Y???Sex:Female D ate:03/20/2024 Address:[address] [place] [address] [facility] Pcp:Elidia Chadwick Subjective: * Chief Complaints: * [...] defers any other forms of tx - 89468.? * Procedure Codes:?20633 Wart Destruction, 1-14 * Follow Up:?6 Weeks * Images: * Sign off status: Completed true * Provider:?Jeanne Cope DPM Date:?0 03/20/2024 Generated for Zoila li/Heidi/eTransmitting on:?05/19/2024 03:05 PM EDT History and Physical Notes * [...]
--- OUTSIDE RECORDS SUMMARY | 2024-05-19 15:06 | XMS_ITS ---
Author Organization [facility] Address [address] [place] [address] Care Team Providers Care Cna Hha Name Role Phone Elidia Chadwick Primary Care Provider UnavailJeanne Bain Unavailable [phone] Heike Del Valle [phone] Encounters Encounter Location Date Provider Diagnosis [address] [address] 04/24/2024 Heike Del Valle Plan Of Treatment Next Appt Details Provider Name:Jeanne main, 06/08/2024 10:15:00 AM, [address] [place] [address], [phone], Progress Notes * Marcella PINZON LDOB:1950 (73 yo F)Acc No.[id number]:04/24/2024 Progress Notes Patient:?KAILAMarcella Provider:?Heike Del Valle DPM :1950???Age:73 Y???Sex:Female D ate:04/24/2024 Address: [place] Pcp:Elidia Chadwick Subjective: * Chief Complaints: * [...] Valle DPM Date:?08/2024 Generated for Zoila li/Heidi/Laura on:?05/19/2024 03:05 PM EDT
== END ==
LOC: HO.HMCH 12:57
PROVIDERS: PCP Internal Medicine; Visit Provider Internal Medicine
DX: Z29.89 Encounter for other specified prophylactic measures (principal)

== ENCOUNTER → 2024-05-19 12:57 | Outpatient (BNVA) | payer MEDICARE, SELFPAY | PROVIDERS: PCP Internal Medicine; Visit Provider Internal Medicine | DX: Z29.89 Encounter for other specified prophylactic measures (principal) | CPT/HCPCS: 99212 ==

== ENCOUNTER 2024-07-23 11:52 | Outpatient (REF) | payer MEDICARE, SELFPAY ==
[2024-07-23 12:38] LABS: Appearance Urine Cloudy; Color Urine Yellow; Glucose Urine UA Negative (Negative); Leukocyte Esterase Urine Large (3+) (Negative); Nitrite Urine Positive (Negative); PH 6.5 (5.0-9.0); UMIC TRIGGER UA YES; Urine Blood Trace (Negative); Urine Ketones Negative (Negative); Urine Protein Negative (Neg-Trace)
[2024-07-23 12:49] LABS: Bacteria Urine 4+ (None Seen); Hyaline Casts Urine 0-2 /LPF (0-2); RBC Urine 0-2 /HPF (0-2); WBC Urine >50 /HPF (0-5)
--- OUTSIDE RECORDS SUMMARY | 2024-07-23 14:04 | XMS_ITS | Clinical Summary ---
Author Organization [facility] Address [address] [place] [address] Care Team Providers Care Tool Grinder Operator External Name Role Phone Unavailable Primary Care Provider Unavailabl e Encounters Date Type Department Care Team Description 05/12/2024 10:05 AM EDT Immunization [facility] [address] [place] [address] Encounter for immunization from Last 3 Months Immunizations Immunization Administration Dates Next Due Pfizer Covid-19 Vaccine 12+ 05/12/2024 Social History Tobacco Use Types Packs/Day Years Used Date Smoking Tobacco: Never Assessed Comments Unknown Sex and Gender Information Value Date Recorded Sex Assigned at Female 05/12/2024 2:01 PM EDT Legal Sex Female 1:58 PM EDT Gender Identity Female 05/12/2024 2:01 PM EDT Sexual Orientation Don't know 05/12/2024 2: 01 PM EDT Plan of Treatment Health Maintenance Due Date Last Done Comments CT Colonography 1950 Colonoscopy 1950 Colorectal Cancer Screening 1950 Depression Screening 1950 FIT DNA/Cologuard 1950 FIT 1950 FOBT 1950 SDOH Screening 1950 Sigmoidoscopy 1950 Alcohol/Substance Use Screening 1964 Tobacco Screening 1964 Hepatitis C Screening 1970 DTaP/Tdap/Td Vaccines (1 - Tdap) 10/21/1971 Pneumococcal Vaccine: 50+ Years (1 of 1 - PCV) 2002 Zoster Vaccines (1 of 2) 2002 Influenza Vaccine (Season Ended) 2024 COVID-19 Vaccine (2 - season) 2024 05/12/2024 Mammogram 02/19/2026 02/20/2024, 12/2 02/2021, 02/06/2021, Additional history exists RSV Patients and Patients Aged 60 years or older (1 - 1-dose 75+ series) 10/21/2027 HIB Vaccines Aged Out No longer eligi ble based on patient's age to complete this topic HPV Vaccines Aged Out No longer eligi ble based on patient's age to complete this topic Hepatitis A Vaccines Aged Out No long er eligible based on patient's age to complete this topic Hepatitis B Vaccines Aged Out No long er eligible based on patient's age to complete this topic IPV Vaccines Aged Out No longer eligi ble based on patient's age to complete this topic Meningococcal B Vaccine Aged Out No l onger eligible based on patient's age to complete this topic Meningococcal Vaccine Aged Out No franklin jyothi eligible based on patient's age to complete this topic RSV under 20 months Aged Out No longe r eligible based on patient's age to complete this topic Rotavirus Vaccines Aged Out No longer eligible based on patient's age to complete this topic Insurance MEDICARE
== END 2024-07-23 11:53 | disposition home or self-care (01) ==
LOC: HO.LAB 11:52
PROVIDERS: PCP Internal Medicine; Visit Provider Nurse Practitioner Family
DX: R33.9 Retention of urine, unspecified (principal); I10 Essential (primary) hypertension
CPT/HCPCS: 81001; 87086; 87088; 87186

== ENCOUNTER 2024-07-28 11:09 | Outpatient (AMB) | payer MEDICARE, SELFPAY ==
[2024-07-28 11:14] VITALS: BP 124/78; PULSE 61; TEMP 36.2; O2SAT 96
--- NOTE | 2024-07-28 11:14 | A.OFFPC_ITS ---
Vital Signs 07/28/24 11:14 Height 5 ft 6 in BMI Reason not done Patient refused/unable BP 124/78 Blood Pressure Location Lt brachial Position Sitting Pulse 61 Pulse Source Pulse Oximeter Temp 97.1 F Temp Source Temporal Artery Scan Pulse Oximetry (%) 96 Oxygen Delivery Method Room Air Intake Visit Reasons: Rt knee pain Allergies lactose Allergy (Intermediate, Verified 07/28/24 11:17) Flatulence Medication List - Last Reconciled 07/28/24 by Elidia Chadwick MD atovaquone-proguanil 250-100 mg take 1 tab once daily x2days before exposure, during time in area, and x7 days after leaving area PO cholecalciferol (vitamin D3) 50 mcg PO DAILY citalopram 10 mg PO DAILY lactase (Lactase Fast Acting) 9,000 units PO QID PRN multivitamin 1 tab PO DAILY simvastatin 10 mg PO BEDTIME Tobacco use date assessed: 07/28/24 Fall risk assessment: 1 Fall in past year Last assessed Fall Risk: 07/28/24 Dental Screening Dental Screen Date: 07/28/24 Did you have a dental visit in the last 12 months?: Yes Did you have a dental problem in the last 6 months where you did not have access to dental care?: No Was dental information given to patient?: Patient has dentist HPI Rt knee pain HPI Details R knee weakness, did not fall or trauma - has been driving - last week of june 2024- , walking got weak, , fell in tub, , no swelling , no redness PFSH Medical History Tubular adenoma Hx of radiation therapy Lab test negative for COVID-19 virus Hx of sickle cell trait Depression Sleep apnea Elevated cholesterol Hx of cardiac murmur Obesity Incomplete emptying of bladder Wrist fracture, right Osteopenia Peripheral vascular disease Hypercholesterolemia History of breast cancer Dysthymia Surgical History H/O colonoscopy History of left mastectomy History of cataract surgery H/O foot surgery H/O breast reconstruction Family History Father Multiple myeloma Mother Hypertension Brain aneurysm Social History Housing: House Alcohol intake: never Patient Tobacco Use Status: Never used Tobacco Tobacco use type: Cigarette e-Cigarette/Vaping Use: Never Used Second Hand Smoke Exposure: No service: No Current occupational status: retired Current occupational exposures/hazards: No Cognitive needs: No Hearing needs: No Vision needs: Yes Questionnaire PHQ-9 Over the last 2 weeks, how often have you been bothered by any of the following problems? 1. Little interest or pleasure in doing things: not at all 2. Feeling down, depressed, or hopeless: several days 3. Trouble falling or staying asleep, or sleeping too much: several days 4. Feeling tired or having little energy: not at all 5. Poor appetite or overeating: several days 6. Feeling bad about yourself - or that you are a failure or have let yourself or your family down: not at all 7. Trouble concentrating on things, such as reading the newspaper or watching television: not at all 8. Moving or speaking so slowly that other people could have noticed. Or the opposite - being so fidgety or restless that you have been moving around a lot more than usual: not at all 9. Thoughts that you would be better off or of hurting yourself in some way: not at all Total score: 3 Source: Developed by Drs. Tong Garcia, Sayda Moran, Rudy Lopez and colleagues, with an educational georgiana from [employer]. Thrive Questionnaire Date Thrive assessed: 07/28/24 I am a: Patient What is your living situation today?: I have a steady place to live Within the past 12 months, did the food you bought not last and you didn't have the money to get more?: Never true Within the past 12 months, did you worry whether your food would run out before you got money to buy more?: Never true Do you have trouble paying for medicines?: No Do you have trouble getting transportation to medical appointments?: No Do you have trouble paying your heating and electricity bill?: No Do you have trouble taking care of your child, family member or friend?: No Do you have trouble with day-to-day activities such as bathing, preparing meals, shopping, managing finances, etc.?: No Are you currently unemployed and looking for a job?: No Are you interested in more education?: Yes Please select the resources that you would like help with: None Currently or been in a relationship where the following occur: No concerns reported THRIVE Score: 0 AUDIT C Alcohol Use Questionnaire (AUDIT-C) 1. How often do you have a drink containing alcohol?: Never 3. How often do you have six or more drinks on one occasion?: Never Total Score: 0 DAKOTA-7 AMB Questionnaire DAKOTA-7 Date DAKOTA - 7 assessed: 04/03/24 Feeling nervous, anxious, or on edge: 0 = Not at all Not being able to stop or control worryin = Not at all Worrying too much about different things: 0 = Not at all Trouble relaxin = Not at all Being so restless that it is hard to sit still: 0 = Not at all Becoming easily annoyed or irritable: 0 = Not at all Feeling afraid as if something awful might happen: 0 = Not at all Total DAKOTA-7 score (0-4 normal; 5-9 mild; 10-14 moderate; 15-21 severe): 0 Source: Developed by Drs. Tong Garcia, Sayda Moran, Rudy Lopez and colleagues, with an educational georgiana from [employer]. Physical exam (Primary Care) Vital Signs: Last Vital Signs Temp 97.1 F 07/28/24 11:14 Pulse 61 07/28/24 11:14 BP 124/78 07/28/24 11:14 Pulse Ox 96 07/28/24 11:14 Oxygen Delivery Method Room Air 07/28/24 11:14 Tobacco/Smoking Status: Tobacco use Status Tobacco use date assessed 07/28/24 07/28/24 11:18 Patient Tobacco Use Status Never used Tobacco 07/28/24 11:18 Tobacco use type Cigarette 07/28/24 11:18 e-Cigarette/Vaping Use Never Used 07/28/24 11:18 PHQ-9: PHQ-9 Score PHQ-9: Total score 3 07/28/24 11:44 Thrive Assessment: Date of Thrive Assessment Date Thrive assessed 07/28/24 07/28/24 11:18 Currently or been in a relationship where the following occur: No concerns reported Const General: alert; No acute distress Eyes Conjunctivae: conjunctivae normal Resp Auscultation: clear to auscultation bilaterally Cardio Rate: regular rate Rhythm: regular rhythm GI Inspection: Yes normal to inspection Extrem Other: Knee exam right no swelling no redness no tenderness on palpation on the anterior as well as the posterolateral areas posterior, medial lateral area no tenderness. General: Yes normal to inspection and No edema Coding Level of Care Code Est Pt Level 3 (73444) Diagnoses Right knee pain M25.561 Assessment & Plan Assessment & Plan (1) Right knee pain: Code(s): M25.561 - Pain in right knee Category: Medical Plan History of Present Illness The patient is a 73-year-old female presenting with knee instability. Approximately a week ago, the patient noticed her right knee giving way while walking, with another incident occurring while showering the following day, causing a fall in the tub. There was no reported swelling, redness, or open wound observed. She has a history of arthritis in her knee, attributing the current instability to her condition. Previous episodes during college were cited, though no current workup or imaging has been performed recently. No pain is reported but there has been intermittent instability, with some triggers being prolonged sitting while driving. Health Maintenance - Patient is advised to continue using compression socks due to previous breast cancer with lymph node removal. Social History - The patient mentioned traveling and social activity, with an upcoming trip to [facility]. - Patient reported driving for several hours between home and the airport. Review of Systems - Musculoskeletal: Reports knee instability, Denies pain, redness, and swelling. Physical Exam - Musculoskeletal- Absence of pain on examination of the knee. Results Plan An x-ray was ordered to assess the condition of the right knee concerning reported instability. The use of knee braces was advised to support the knee during walking. Despite the absence of pain, the history of arthritis suggests the need for continued evaluation and management. Compression socks remain necessary due to the patient's history of breast cancer and lymph node removal, potentially preventing lymphedema. The requirement for malaria prophylaxis was noted concerning future travel plans to [facility]. Patient was informed and verbally consented to the use of an ambient scribe for clinic note documentation during this visit. Discussion Notes I discussed with the patient the possibility of arthritis-related instability in her knee, hence the need for an x-ray to clarify the degree of involvement and any structural concerns. The importance of using knee braces for support was emphasized. We discussed the benefits and minimal risks associated with this conservative management. Compression socks were recommended to manage postoperat howard changes post-breast cancer treatment. Malaria prophylaxis was considered necessary due to her upcoming international travel. We agreed on following up after x-ray results are available. Patient Instructions - Obtain an x-ray of the knee at your earliest convenience. - Wear knee braces to provide stability when walking. - Continue wearing compression socks as previously instructed post-breast cancer treatment. - Consider malaria prophylaxis for your upcoming trip to [facility]. - Follow up once x-ray results are available for further management. Orders: Orders XR Knee Baldomero 1or 2V Today M25.561 - Pain in right knee
--- OUTSIDE RECORDS SUMMARY | 2024-07-28 13:20 | XMS_ITS | Clinical Summary ---
Author Organization [employer] Address [address] [place] [address] Care Team Providers Care Railway Signalling Engineer Name Role Phone Unavailable Primary Care Provider Unavailabl e Encounters Date Type Department Care Team Description 05/12/2024 10:[address]T [address] [facility] [address] [place] [address] Encounter for immunization from Last 3 Months [...]
== END 2024-07-28 11:48 | disposition home or self-care (01) ==
LOC: HO.HMCH 11:10
PROVIDERS: PCP Internal Medicine; Visit Provider Internal Medicine
DX: M25.561 Pain in right knee (principal)

== ENCOUNTER 2024-07-28 11:09 | Outpatient (REF) | payer MEDICARE, SELFPAY ==
--- NOTE | ~2024-07-28 | XR_ITS ---
CLINICAL HISTORY: M25.561 - Pain in right knee 5 view bilateral knee Comparison: None Findings: Bones intact. No dislocations. Moderate tricompartmental osteoarthritis. Infrapatellar soft tissue swelling. No joint effusion. No radiopaque foreign body. IMPRESSION: 1. No acute osseous injury. 2. Moderate tricompartmental osteoarthritis. This document has been electronically signed by: Fernando River MD on 07/29/2024 00:55:01
== END 2024-07-28 11:10 | disposition home or self-care (01) ==
LOC: HO.XRAY 11:09
PROVIDERS: PCP Internal Medicine; Visit Provider Internal Medicine
DX: M25.561 Pain in right knee (principal)
CPT/HCPCS: 73560; 99212

== ENCOUNTER → 2024-07-28 11:57 | Outpatient (BNV) | payer MEDICARE, SELFPAY | PROVIDERS: PCP Internal Medicine; Visit Provider Radiology Diagnostic Radiology | DX: M17.0 Bilateral primary osteoarthritis of knee (principal) | CPT/HCPCS: 73560 ==

== ENCOUNTER 2024-09-29 07:26 | Outpatient (REF) | payer MEDICARE, SELFPAY ==
--- OUTSIDE RECORDS SUMMARY | 2024-09-29 07:29 | XMS_ITS | Clinical Summary ---
Author Organization [facility] Address [facility] [employer] [address] [address] Phone Care Team Providers Care Senior Catering Sales Manager Name Role Phone Elidia Chadwick MD Primary Care Provider [phone] Allergies Active Allergy Reactions Criticality Noted Date Comments Lactase Other (See Comments) 12/24/2022 Medications citalopram (CELEXA) 10 MG tablet 11/23/2022 Active simvastatin (ZOCOR) 10 MG tablet 11/23/2022 Active multivit-min/hilda roberto fumarate (MULTI VITAMIN ORAL) Take by mouth daily. Active Social History Tobacco Use Types Packs/Day Years Used Date Smoking Tobacco: Never Smokeless Tobacco: Never Tobacco Cessation:Counseling Given: Not Answered Alcohol Use Standard Drinks/Week Comments Never 0 (1 standard drink = 0.6 oz pur e alcohol) Education Answer Date Recorded Are you interested in more education? Not on geneva e 09/19/2022 Are you concerned about learning? Not on file 09/19/2022 No 09/19/2022 No 09/19/2022 Digital Access Answer Date Recorded No 09/19/2022 No 09/19/2022 Reliable internet access at home? Not on file 09/19/2022 Device with a working camera? Not on file Comments No Sex and Gender Information Value Date Recorded Sex Assigned at Female 09/19/2022 10:27 AM EDT Legal Sex Female 8:06 PM EST Gender Identity Female 09/19/2022 10:27 AM EDT Sexual Orientation Choose not to disclose 2022 12:01 PM EST Last Filed Vital Signs Vital Sign Reading Time Taken Comments Blood Pressure 126/75 03/08/2023 9:57 AM EST Pulse 60 03/08/2023 9:57 AM EST Temperature 35.7 C (96.2 F) 03/08/2023 9:57 AM EST Respiratory Rate 16 05/29/2012 10:30 AM EDT Oxygen Saturation 99% 03/08/2023 9:57 AM EST Inhaled Oxygen Concentration - - Weight 111.1 kg (245 lb) 03/08/2023 9:57 AM EST Height 167.6 cm (5' 6 ) 03/08/2023 9:57 AM EST Body Mass Index 39.54 03/08/2023 9:57 AM EST Plan of Treatment Health Maintenance Due Date Last Done Comments LIPID PANEL 1952 HEPATITIS C SCREENING 1970 COLOGUARD 1997 COLONOSCOPY 1997 COLORECTAL CANCER SCREENING 1997 FIT TEST 1997 FOBT 1997 SIGMOIDOSCOPY 1997 VIRTUAL COLONOSCOPY 1997 OSTEOPOROSIS SCREENING INITIAL (ONE-TIME) 2017 COVID-19 VACCINE ( season) 2023 11/28/2022, 08/03/2022, 12/25/2021, Additional history exists MAMMOGRAM 02/08/2024 02/07/2022, 01/19, 02/06/2021, Additional history exists DEPRESSION SCREENING 03/03/2024 03/03/2023, 03/03/19 24 Adult Td,Tdap Booster 05/24/2027 05/23/2017 RSV VACCINE (1 - 1-dose 75+ series) 10/21/2027 ZOSTER VACCINES Completed 12/27/2018, 10/22/2018 PNEUMOCOCCAL VACCINES (50+ years) Completed 04/05/2021, 01/01/2018, 12/21/2017, Additional history exists SMOKING STATUS SCREENING (Once After 26 Yrs) Completed 03/08/2023 HEPATITIS A VACCINES Aged Out No long er eligible based on patient's age to complete this topic HIB VACCINES Aged Out No longer eligi ble based on patient's age to complete this topic MENINGOCOCCAL VACCINES (ACWY) Aged Out No longer eligible based on patient's age to complete this topic MENINGOCOCCAL VACCINES (B) Aged Out N o longer eligible based on patient's age to complete this topic Medical Devices Not on file Insurance MEDICARE PART A & B [facility] MEDEX SUPPLEMENT MEDICARE PART A & B [employer] CROSS MEDEX SUPPLEMENT MEDICARE PART A & B [employer] CROSS MEDEX SUPPLEMENT MEDICARE PART A & B [employer] SUPPLEMENT MEDICARE PART A & B [employer] MEDEX SUPPLEMENT MEDICARE PART A & B [employer] CROSS MEDEX SUPPLEMENT Care Teams Senior Catering Sales Manager Relationship Specialty Start Date End Date Elidia Chadwick MD [address] [place] [id number] PCP - General 06/25/14 Additional Source Comments The information contained in this document represents components of the legal health record. It is not the complete legal health record.[facility]
--- OUTSIDE RECORDS SUMMARY | 2024-09-29 07:29 | XMS_ITS | Clinical Summary ---
Author Organization [employer] Address [address] [place] [address] Care Team Providers Care Supervisor Grower Name Role Phone Unavailable Primary Care Provider Unavailabl e Immunizations Immunization Administration Dates Next Due Pfizer [...] Vaccines (1 of 2) 2002 Influenza Vaccine (#1) 2024 COVID-19 Vaccine (2 - season) 2024 05/12/2024 Mammogram 02/19/2026 02/20/2024, 1202/2021, 02/06/2021, Additional history exists RSV Patients and [...]
[2024-09-29 07:54] LABS: MANUAL DIFF FLAG NO
[2024-09-29 08:30] LABS: Hematocrit 37.3 % (37.0-47.0); Hemoglobin 12.6 g/dl (12.0-16.0); Imm Gran Abs Auto 0.03 X10*3/uL (0.00-0.03); Imm Gran Pct Auto 0.4 % (0.0-0.4); Lymphocytes Absolute Auto 2.4 X10*3/uL (1.2-4.9); Mean Corpuscular HGB Conc 33.8 g/dl (31.0-35.0); Mean Corpuscular Hemoglobin 28.6 pg (27.0-33.0); Mean Corpuscular Volume 84.8 fL (80.0-98.0); NRBC Abs Auto 0.000 X10*3/uL (0.0-0.012); NRBC Pct Auto 0.0 /100WBC (0.0-0.2); Platelet Count 308 X10*3/uL (160-400); Red Blood Count 4.40 X10*6/uL (4.20-5.50); White Blood Count 7.2 X10*3/uL (4.8-10.8)
[2024-09-29 08:58] LABS: Hemoglobin A1C 126.6259 umol/L; Total Hemoglobin (HGBA1C) 3300.9962 umol/L
[2024-09-29 09:39] LABS: Alanine Aminotransferase 17 U/L (0-31); Albumin Level 4.0 g/dL (3.5-5.0); Alkaline Phosphatase 91 U/L (39-117); Anion Gap 12 (12-20); Aspartate Amino Transferase 24 U/L (5-31); Blood Urea Nitrogen 13 mg/dL (9-16); Calcium 8.9 mg/dL (8.4-10.2); Carbon Dioxide 29 mmol/L (22-29); Chloride 103 mmol/L (96-108); Cholesterol 205 mg/dL (<200); Estimated Glomerular Filt Rate 57; HDL Cholesterol 55 mg/dL (>40); Potassium 3.6 mmol/L (3.3-5.1); Sodium 140 mmol/L (135-145); Total Protein 7.8 g/dL (6.5-8.0); Triglycerides 74 mg/dL (<150)
[2024-09-29 09:56] LABS: Free T4 (Free Thyroxine) 0.85 ng/dL (0.71-1.85); Thyroid Stimulating Hormone 3.69 uIU/mL (0.32-4.0)
[2024-09-29 11:06] LABS: Folate 14.0 ng/mL (> or = 4.0); Vitamin B12 658 pg/mL (200-900)
== END 2024-09-29 07:27 | disposition home or self-care (01) ==
LOC: HO.LAB 07:26
PROVIDERS: Visit Provider Internal Medicine
DX: E78.00 Pure hypercholesterolemia, unspecified (principal)
CPT/HCPCS: 36415; 80053; 80061; 82607; 82746; 83036; 84439; 84443; 85025

== ENCOUNTER 2024-10-01 22:00 | Outpatient (REF) | payer MEDICARE, SELFPAY ==
--- OUTSIDE RECORDS SUMMARY | 2024-10-02 10:26 | XMS_ITS | Clinical Summary ---
Author Organization [facility] Address [facility] [employer] [address] [address] Phone Care Team Providers Care All Round Butcher Name Role Phone Elidia Chadwick MD Primary Care Provider [phone] Allergies Active Allergy Reactions Criticality Noted Date [...] file Insurance MEDICARE PART A & B [facility] MEDEX SUPPLEMENT MEDICARE PART A & B [employer] CROSS MEDEX SUPPLEMENT MEDICARE PART A & B [employer] CROSS MEDEX SUPPLEMENT MEDICARE PART A & B [employer] MEDEX SUPPLEMENT MEDICARE PART A & B [employer] MEDEX SUPPLEMENT MEDICARE PART A & B [employer] MEDEX SUPPLEMENT Care Teams All Round Butcher Relationship Specialty Start Date End Date Elidia Chadwick MD [address] [place] [id number] PCP - General 06/25/14 Additional Source Comments The information contained in this document represents components of the legal health record. It is not the complete legal health record.[facility]
[2024-10-02 10:39] LABS: Appearance Urine Cloudy; Glucose Urine UA Negative (Negative); PH 5.5 (5.0-9.0); Specific Gravity - Urine 1.010 (1.005-1.025); UMIC TRIGGER UA YES
== END 2024-10-01 22:01 | disposition home or self-care (01) ==
LOC: HO.LNP 22:00
PROVIDERS: Visit Provider Internal Medicine
DX: E78.00 Pure hypercholesterolemia, unspecified (principal)
CPT/HCPCS: 81001

== ENCOUNTER 2024-10-05 11:39 | Outpatient (REF) | payer MEDICARE, SELFPAY ==
--- OUTSIDE RECORDS SUMMARY | 2024-10-05 13:35 | XMS_ITS | Clinical Summary ---
Author Organization [employer] Address [address] [place] [address] Care Team Providers Care Beef Killer Name Role Phone Unavailable Primary Care Provider [...]
== END 2024-10-05 11:40 | disposition home or self-care (01) ==
LOC: HO.LAB 11:39
PROVIDERS: PCP Internal Medicine; Visit Provider Nurse Practitioner Family
DX: R33.9 Retention of urine, unspecified (principal); N39.0 Urinary tract infection, site not specified; R39.15 Urgency of urination
CPT/HCPCS: 87086; 87088; 87186; 99212

== ENCOUNTER 2024-10-05 11:39 | Outpatient (AMB) | payer MEDICARE, SELFPAY ==
--- NOTE | 2024-10-05 11:41 | A.OFFVIS_ITS ---
Intake Visit Reasons: follow up/UTI Intake Note: Patient presents today for: FOLLOW UP UTI UROLOGY MEDICATIONS: NONE BLOOD THINNERS: NONE Radio Repair Teacher Required: No Accompanied by: Self / Same As Patient Allergies lactose Allergy (Intermediate, Verified 10/05/24 14:49) Flatulence Medication List - Last Reconciled 10/05/24 by CHARMAINE Bahena cholecalciferol (vitamin D3) 50 mcg PO DAILY citalopram 10 mg PO DAILY lactase (Lactase Fast Acting) 9,000 units PO QID PRN multivitamin 1 tab PO DAILY simvastatin 10 mg PO BEDTIME sulfamethoxazole-trimethoprim 800-160 mg (Bactrim DS) 1 tab PO BID 7 days HPI Comments Details: Marcella is a very pleasant 73-year-old female patient of Dr. Chadwick. 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 She presents to the office today for follow-up of her urinary retention/incomplete bladder emptying. In discussion with the patient today she reports noting decreased urinary output when voiding. She reports she has not been self cathing 2 times per day as she did not feel this was necessary. In office urinalysis results reviewed with the patient today 3+ leukocytes positive nitrates. She reports having followed up with her PCP earlier this morning. We did discuss correlation of incomplete bladder emptying and recurrent urinary tract infections. We also discussed slight increase in creatinine. We discussed potential causes of incomplete bladder emptying/urinary retention and affects of this urological condition on overall health and well-being. Previous workup has included a retroperitoneal ultrasound 05/11 noting bilateral kidneys with no calculi, lesions, and or hydronephrosis. The bladder is well distended and normal. Bilateral ureteral jets are demonstrated. Pre void bladder volume is approximately 450 mL. Postvoid bladder volume is 350 mL. Previous urine cultures are as follows: 10/09 E coli,02/09 Enterobacter cloacae complex, 05/11 E coli, 08/12 E coli BUN and creatinine results trended and reviewed with the patient today as noted and trended below: BUN: 04/11 14, 10/09 12, 05/10 15, 05/11 12, 05/11 12, 03/14 14, 10/12 13 Creatinine: 04/11 0.83, 10/09 0.89, 05/10 0.79, 05/11 0.83, 05/11 0.85, 03/14 0.82, 10/12 0.96 She denies urinary urgency, urinary frequency, incontinence, nocturia, hematuria, dysuria, foul smelling urine, changes to urinary stream, flank pain, fever, and or chills. She otherwise offers no issues or concerns at this time. Previous office note Urinary retention with incomplete bladder emptying ? No UTI since last? visit ?Using CIC twice a day ?She knows to use it more often? if she is drinking more fluid. ? They are here for ?further management for incomplete emptying neurogenic? bladder ?- CIC BID - has 8 oz on CIC is urinating for? herself.? Urinary retention initially found?after inability to void ?- Has been managed? with clean intermittent catheterization since 2009. Has occasional UTI.? According to patient urodynamics was performed which showed no bladder contraction. Was offered sacral stimulator..? Imaging? results?05/05 renal b u/s - retention? 200cc.? Associated conditions? Alzhiemers? ?No ? CAD ?No ? CVA ?No ? Diabetes ?No ? Multiple sclerosis ?No ? renal replacement therapy ?No ? Spinal injury/surgery? ?No ? Current management?clean intermittent catheterization. [facility] Medical History Tubular adenoma Hx of radiation therapy Lab test negative for COVID-19 virus Hx of sickle cell trait Depression Sleep apnea Elevated cholesterol Hx of cardiac murmur Obesity Incomplete emptying of bladder Wrist fracture, right Osteopenia Peripheral vascular disease Hypercholesterolemia History of breast cancer Dysthymia Surgical History H/O colonoscopy History of left mastectomy History of cataract surgery H/O foot surgery H/O breast reconstruction Family History Father Multiple myeloma Mother Hypertension Brain aneurysm Social History Housing: House Alcohol intake: never Patient Tobacco Use Status: Never used Tobacco Tobacco use type: Cigarette e-Cigarette/Vaping Use: Never Used Second Hand Smoke Exposure: No service: No Current occupational status: retired Current occupational exposures/hazards: No Cognitive needs: No Hearing needs: No Vision needs: Yes Review of Systems Const Reports as per HPI Eyes Reports no additional complaints ENT Reports no additional complaints Card Reports as per HPI Resp Reports as per HPI GI Reports as per HPI Reports as per HPI Musc Reports no additional complaints Neuro Reports no additional complaints Psych Reports as per HPI Endo Reports no additional complaints Physical Exam Const General: cooperative, healthy appearing, comfortable, no acute distress, well developed, alert and awake Nutritional Appearance: overweight Orientation/consciousness: patient oriented x3 Limitations: no limitations HEENT Head: Yes normal to inspection, Yes normocephalic and Yes atraumatic Ears: hearing grossly normal bilaterally Eyes General: appearance normal, both eyes and all related structures Neck Neck: Yes normal visual inspection and Yes trachea midline Chest Chest palpation & inspection: normal inspection of the chest Resp Effort & Inspection: normal respiratory effort and able to speak in complete sentences Cardio Rate: regular rate GI Inspection: Yes normal to inspection General: Yes no CVA tenderness Back/Spine/Pelvis Back: no CVA tenderness Skin General skin exam: no rashes or lesions noted Neuro General: patient oriented x3 Extrem General: Yes normal to inspection Psych Appearance: grossly normal and well kempt Mental Status: mental status grossly normal Speech and movement: Normal speech and movement present and Clear speech present Affect: normal affect Attitude: cooperative Thought process: Normal thought process present Thought content: Normal thought content present Insight: Good insight present (Psych) Judgement: Good judgement present (Psych) Assessment & Plan Assessment & Plan (1) Urinary retention with incomplete bladder emptying: Comment: Self cath Code(s): R33.9 - Retention of urine, unspecified Category: Medical (2) Complicated urinary tract infection: Code(s): N39.0 - Urinary tract infection, site not specified Category: Medical Plan In office urinalysis results reviewed with the patient today; as noted above; will send for urine culture. Start Bactrim as discussed and prescribed. We did discussed at length potential causes of urinary retention as well as recurrent urinary tract infections. We discussed further treatment options and risks and benefits of these treatment options. We discussed affects of incomplete bladder emptying; this is discussed at length. We discussed importance of CIC; will increase to 4-6 times per day Will obtain redraw of BUN and creatinine. Will obtain retroperitoneal ultrasound for further assessment evaluation. We discussed near future in office cystoscopy for further assessment evaluation as well as further treatment options of her urological conditions and risks and benefits of these treatment options. All questions were answered. Follow-up in 1-3 months with imaging and labs; or sooner with any issues, concerns, and or questions. Orders: Orders Blood Urea Nitrogen 3 Months R39.15 - Urgency of urination Urine Culture Today N39.0 - Urinary tract infection, site not specified US retroperitoneal comp Today R33.9 - Retention of urine, unspecified Creatinine 3 Months R39.15 - Urgency of urination Medications: New sulfamethoxazole-trimethoprim 800-160 mg (Bactrim DS) 1 tab PO BID 14 tabs 0RF 7 days N39.0 - Urinary tract infection, site not specified Patient Instructions: The patient had an opportunity to ask questions regarding the treatment plan. All questions were answered. Physical exam, labs, and imaging were discussed and reviewed in detail. As well as risks, benefits, and discussion of treatment choices. No major barriers to understanding were identified. The patient expressed understanding and agreement with the above treatment plan. The patient was made aware they should contact our office by phone for worsening of their current condition, the appearance of new symptoms, or with any questions or concerns. Compliance is encouraged with any medications and follow up testing that is ordered. It is a privilege to be allowed the opportunity to participate in? your urological care.? Again, if you have any questions or concerns If you have any questions or concerns please do not hesitate to contact me. The office is [phone]. This note is constructed using voice recognition software. While every effort has been made to ensure accuracy grill cook errors may have been included. Yours sincerely, CRISELDA Bahena-ABY Coding Level of Care Code Est Pt Level 4 (87454) Complex EM visit Add On G2211 Diagnoses Urinary retention with incomplete bladder emptying R33.9 Complicated urinary tract infection N39.0
--- OUTSIDE RECORDS SUMMARY | 2024-10-05 13:01 | XMS_ITS | Clinical Summary ---
Author Organization [facility] Address [facility] [employer] [address] [address] Phone Care Team Providers Care Info Specialist Name Role Phone Elidia Chadwick MD Primary Care Provider [phone] Allergies Active Allergy Reactions Criticality Noted Date [...] file Insurance MEDICARE PART A & B [facility] MEDEX SUPPLEMENT MEDICARE PART A & B [employer] MEDEX SUPPLEMENT MEDICARE PART A & B Member Subscriber Plan / Payer ( fective 2017-Present) Name:Jeromy, Marcella Member ID:[id number] Relation to Subscriber:Self Name:Jeromy, Marcella Subscriber ID:[id number] Payer ID:[id number] Group ID:Not on file Type:Medicare Address: [facility] [employer] [facility] [address] [place] [phone] [employer] MEDEX SUPPLEMENT MEDICARE PART A & B [employer] MEDEX SUPPLEMENT MEDICARE PART A & B [employer] MEDEX SUPPLEMENT MEDICARE PART A & B [employer] MEDEX SUPPLEMENT Care Teams Info Specialist Relationship Specialty Start Date End Date Elidia Chadwick MD [address] [place] [address] PCP - General 06/25/14 Additional Source Comments The information contained in this document represents components of the legal health record. It is not the complete legal health record.[facility]
== END 2024-10-05 12:42 | disposition home or self-care (01) ==
LOC: HO.HUSH 11:40
PROVIDERS: PCP Internal Medicine; Visit Provider Nurse Practitioner Family
DX: R33.9 Retention of urine, unspecified (principal); N39.0 Urinary tract infection, site not specified
CPT/HCPCS: 99214; G2211

== ENCOUNTER 2024-10-14 16:15 | Outpatient (REF) | payer MEDICARE, SELFPAY ==
--- OUTSIDE RECORDS SUMMARY | 2024-10-14 17:06 | XMS_ITS | Encounter Summary ---
Author Organization [facility] Address [address] [place] [address] Phone Care Team Providers Care Didactic Program In Dietetics Director Name Role Phone Elidia Chadwick MD Primary Care Provider [phone] Encounter Details Date Type Department Care Team (Late st Contact Info) Description 03/08/2023 Procedure Pass MRI, [facility] [place] [address] [facility], [address] [place], [place] [id number] Social History Tobacco Use Types Packs/Day Years Used Date Smoking Tobacco: Never Smokeless Tobacco: Never Alcohol Use Standard Drinks/Week Comments Never 0 [...] not to disclose 2022 12:01 PM EST documented as of this encounter Plan of Treatment Not on file documented as of this encounter Visit Diagnoses Not on filedocumented in this encounter Additional Health Concerns Assessment Noted Time PHQ-9 Depression Total Score: 4 03/03/19 24 1:07 PM EST PHQ-2 Depression Total Score: 0 03/03/19 1:07 PM EST documented as of this encounter Care Teams Didactic Program In Dietetics Director Relationship Specialty Start Date End Date Elidia Chadwick MD [address] [place] [address] PCP - General 06/25/14 documented as of this encounter Additional Source Comments The information contained in this document represents components of the legal health record. It is not the complete legal health record.[facility]
--- OUTSIDE RECORDS SUMMARY | 2024-10-14 17:06 | XMS_ITS | Encounter Summary ---
Author Organization [facility] Address [address] [place] [address] Phone Care Team Providers Care Sales Ledger Administrator Name Role Phone Elidia Chadwick MD Primary Care Provider [phone] Encounter Details Date Type Department Care Team (Late st Contact Info) Description 03/08/2023 Procedure Pass [facility] [place] [facility] [address] 5[address], [address] [place] [address] Social History Tobacco Use Types Packs/Day Years [...] Time PHQ-9 Depression Total Score: 4 03/03/19 1:07 PM EST PHQ-2 Depression Total Score: 0 03/03/19 1:07 PM EST documented as of this encounter Care Teams Sales Ledger Administrator Relationship Specialty Start Date End Date Elidia Chadwick MD [address] [place] [address] PCP - General 06/25/14 documented as of this encounter Additional Source Comments The information contained in this document represents components of the legal health record. It is not the complete legal health record.[facility]
--- OUTSIDE RECORDS SUMMARY | 2024-10-14 17:06 | XMS_ITS | Clinical Summary ---
Author Organization [facility] Address [facility] [employer] [address] [address] Phone Care Team Providers Care Stem Roller Operator Name Role Phone Elidia Chadwick MD Primary Care Provider [phone] Allergies Active Allergy Reactions Criticality Noted Date [...] file Insurance MEDICARE PART A & B [facility] MEDEX SUPPLEMENT MEDICARE PART A & B [employer] MEDEX SUPPLEMENT MEDICARE PART A & B [employer] MEDEX SUPPLEMENT MEDICARE PART A & B [employer] MEDEX SUPPLEMENT MEDICARE PART A & B [employer] MEDEX SUPPLEMENT MEDICARE PART A & B [employer] MEDEX SUPPLEMENT Care Teams Stem Roller Operator Relationship Specialty Start Date End Date Elidia Chadwick MD [address] [place] [address] PCP - General 06/25/14 Additional Source Comments The information contained in this document represents components of the legal health record. It is not the complete legal health record.[facility]
--- OUTSIDE RECORDS SUMMARY | 2024-10-14 17:06 | XMS_ITS | Clinical Summary ---
Author Organization [employer] Address [address] [facility] [address] [place] [address] Care Team Providers Care Metal Technician Name Role Phone Unavailable Primary Care Provider [...]
[2024-10-15 09:59] LABS: Appearance Urine Clear; Glucose Urine UA Negative (Negative); PH 5.0 (5.0-9.0); Specific Gravity - Urine 1.015 (1.005-1.025); UMIC TRIGGER UACC YES
[2024-10-15 10:02] LABS: UACC Culture Trigger YES
== END 2024-10-14 16:16 | disposition home or self-care (01) ==
LOC: HO.LAB 16:15
PROVIDERS: PCP Internal Medicine; Visit Provider Nurse Practitioner Family
DX: N39.0 Urinary tract infection, site not specified (principal); R39.9 Unspecified symptoms and signs involving the genitourinary system
CPT/HCPCS: 81001; 81003; 87086

== ENCOUNTER 2024-10-23 20:31 | Emergency (ER) | payer MEDICARE, SELFPAY ==
--- NOTE | ~2024-10-23 | XR_ITS ---
CLINICAL HISTORY: chest pain 1 view chest x-ray Comparison: None provided Findings: Mild elevation of the hemidiaphragm with mild left basilar atelectasis/pneumonitis. No pneumothorax or pleural effusion, in this one view study. Cardiac silhouette and mediastinal contours are within upper limits of normal. Degenerative changes include imaged AC joints. IMPRESSION: Mild left basilar atelectasis. This document has been electronically signed by: Dre Null MD on 10/23/2024 21:37:42
[2024-10-23 20:35] VITALS: BP 162/67; PULSE 60; RESP 18; TEMP 36.7; O2SAT 98; BMI 32.3
--- NOTE | 2024-10-23 20:39 | ECG_ITS ---
Test Reason : chest pain Blood Pressure : */* mmHG Vent. Rate : 61 BPM Atrial Rate : 61 BPM P-R Int : 150 ms QRS Dur : 80 ms QT Int : 412 ms P-R-T Axes : 47 3 61 degrees QTcB Int : 414 ms Normal sinus rhythm Normal ECG When compared with ECG of 03-Oct-2021 15:36, No significant change was found Referred By: Generic ED Physician Electronically Signed By: Emir Vanegas
[2024-10-23 21:08] LABS: MANUAL DIFF FLAG NO
[2024-10-23 21:22] LABS: Hematocrit 34.3 % (37.0-47.0); Hemoglobin 11.5 g/dl (12.0-16.0); Imm Gran Abs Auto 0.04 X10*3/uL (0.00-0.03); Imm Gran Pct Auto 0.6 % (0.0-0.4); Lymphocytes Absolute Auto 1.9 X10*3/uL (1.2-4.9); Mean Corpuscular HGB Conc 33.5 g/dl (31.0-35.0); Mean Corpuscular Hemoglobin 28.3 pg (27.0-33.0); Mean Corpuscular Volume 84.5 fL (80.0-98.0); NRBC Abs Auto 0.030 X10*3/uL (0.0-0.012); NRBC Pct Auto 0.5 /100WBC (0.0-0.2); Platelet Count 316 X10*3/uL (160-400); Red Blood Count 4.06 X10*6/uL (4.20-5.50); White Blood Count 6.6 X10*3/uL (4.8-10.8)
[2024-10-23 21:27] LABS: Alanine Aminotransferase 25 U/L (0-31); Albumin Level 3.9 g/dL (3.5-5.0); Alkaline Phosphatase 90 U/L (39-117); Anion Gap 12 (12-20); Aspartate Amino Transferase 26 U/L (5-31); Blood Urea Nitrogen 19 mg/dL (9-16); Calcium 8.9 mg/dL (8.4-10.2); Carbon Dioxide 27 mmol/L (22-29); Chloride 108 mmol/L (96-108); Creatinine Clr Calc Pharmacy 62.6; Estimated Glomerular Filt Rate > 60; Potassium 4.1 mmol/L (3.3-5.1); Sodium 143 mmol/L (135-145); Total Protein 7.3 g/dL (6.5-8.0)
[2024-10-23 21:34] LABS: Troponin-I High Sensitivity 2.7 ng/L (<3.5-17.0)
[2024-10-23 21:38] VITALS: PULSE 57
--- OUTSIDE RECORDS SUMMARY | 2024-10-23 21:56 | XMS_ITS | Clinical Summary ---
Author Organization [employer] Address [address] [place] [address] Care Team Providers Care Label Stitcher Name Role Phone Unavailable Primary Care Provider [...]
--- OUTSIDE RECORDS SUMMARY | 2024-10-23 21:56 | XMS_ITS | Encounter Summary ---
Author Organization [facility] Address [address] [place] [address] Phone Care Team Providers Care District Sales Manager Name Role Phone Elidia Chadwick MD Primary Care Provider [phone] Encounter Details Date Type Department Care Team (Late st Contact Info) Description 03/08/2023 Procedure Pass MRI, [facility] [place] [address] [facility], [address] [place], [place] [id number] Social History Tobacco Use Types Packs/Day Years [...] documented as of this encounter Care Teams District Sales Manager Relationship Specialty Start Date End Date Elidia Chadwick MD [address] [place] [address] PCP - General 06/25/14 documented as of this encounter Additional Source Comments The information contained in this document represents components of the legal health record. It is not the complete legal health record.[facility]
--- OUTSIDE RECORDS SUMMARY | 2024-10-23 21:56 | XMS_ITS | Encounter Summary ---
Author Organization [facility] Address [address] [place] [address] Phone Care Team Providers Care Community Health Promoter Name Role Phone Elidia Chadwick MD Primary Care Provider [phone] Encounter Details Date Type Department Care Team (Late st Contact Info) Description 03/08/2023 Procedure Pass [facility] [address] 5[address], [address] [place] [address] Social History Tobacco Use Types Packs/Day Years [...] documented as of this encounter Care Teams Community Health Promoter Relationship Specialty Start Date End Date Elidia Chadwick MD [address] [place] [address] PCP - General 06/25/14 documented as of this encounter Additional Source Comments The information contained in this document represents components of the legal health record. It is not the complete legal health record.[facility]
--- OUTSIDE RECORDS SUMMARY | 2024-10-23 21:56 | XMS_ITS | Clinical Summary ---
Author Organization [facility] Address [facility] [address] [address] Phone Care Team Providers Care Ocean Lifeguard Name Role Phone Elidia Chadwick MD Primary Care Provider [phone] Allergies Active Allergy Reactions Criticality Noted Date [...] exists DEPRESSION SCREENING 03/03/2024 03/03/2023, 03/03/19 24 INFLUENZA VACCINE (#1) 2024 , 12/05/2020, 10/24/2019, Additional history exists Adult Td,Tdap Booster 05/24/2027 05/23/2017 RSV VACCINE [...] file Insurance MEDICARE PART A & B Member Subscriber Plan / Payer (Ef fective 2017-Present) Name:Mareclla Pinzon Member ID:[id number] Relation to Subscriber:Self Name:Marcella Pinzon Subscriber ID:[id number] Payer ID:[id number] Group ID:Not on file Type:Medicare Address: [facility] [employer] [facility] [address] [place] [address] [place] [phone] [facility] MEDEX SUPPLEMENT MEDICARE PART A & B [employer]OSS MEDEX SUPPLEMENT MEDICARE PART A & B [employer] MEDEX SUPPLEMENT MEDICARE PART A & B [employer] MEDEX SUPPLEMENT MEDICARE PART A & B [employer] MEDEX SUPPLEMENT MEDICARE PART A & B [employer] MEDEX SUPPLEMENT Care Teams Ocean Lifeguard Relationship Specialty Start Date End Date Elidia Chadwick MD [address] [place] [address] PCP - General 06/25/14 Additional Source Comments The information contained in this document represents components of the legal health record. It is not the complete legal health record.[facility]
[2024-10-23 22:26] VITALS: BP 149/53; PULSE 53; RESP 13; TEMP 36.8; O2SAT 96
[2024-10-23 23:18] LABS: D Dimer High Sensitivity 187 NG/ML
--- NOTE | 2024-10-23 23:24 | ED.CHESTPAIN ---
HPI - Chest Pain General Chief Complaint: Chest Pain Stated Complaint: CP Time Seen by Provider: 10/23/24 21:51 Source: patient, RN notes reviewed and old records reviewed Mode of arrival: ambulatory Limitations: no limitations History of Present Illness ED Provider: Radha TAI narrative: 74-year-old female with past medical history significant for previous breast cancer status post lumpectomy, obesity, hyperlipidemia, peripheral vascular disease presents for evaluation of left-sided chest pain/breast pain. The patient 1st noticed her pain about 3 hours prior to arrival. The pain waxes and wanes and feels like a stabbing or electricity feeling. The pain is random, unrelated to exertion or movement. She has no shortness of breath, cough, fevers, chills. Denies any leg swelling. She reports that in August she was on a vacation to [facility], she also just returned from [place] 2 days ago Denies any history of coronary artery disease personally or in family history. Related Data Home Medications ?Medication ?Instructions ?Recorded ?Confirmed cholecalciferol (vitamin D3) 50 50 mcg PO DAILY 12/17/19 10/05/24 mcg (2,000 unit) capsule lactase 9,000 unit tablet (Lactase 9,000 unit PO QID PRN 12/17/19 10/05/24 Fast Acting) Gastrointestinal Spasms Or Cramping multivitamin 1 tab PO DAILY 12/17/19 10/05/24 Previous Rx's ?Medication ?Instructions ?Recorded citalopram 10 mg tablet 10 mg PO DAILY #90 tabs 04/17/24 simvastatin 10 mg tablet 10 mg PO BEDTIME #90 tabs 07/06/24 sulfamethoxazole 800 1 tab PO BID 7 days #14 tabs 10/05/24 mg-trimethoprim 160 mg tablet (Bactrim DS) Allergies Allergy/AdvReac Type Severity Reaction Status Date / Time lactose Allergy Intermediate Flatulence Verified 10/23/24 20:38 Review of Systems Constitutional: Constitutional: Denies body ache(s), Denies chills and Denies fever(s) Eyes: Eyes: Denies blurry vision ENT: Denies vertigo and Denies dizziness Cardiovascular: Cardiovascular: Reports chest pain, Reports chest pain at rest, Denies leg edema and Denies dyspnea on exertion Respiratory: Respiratory: Denies cough and Denies dyspnea on exertion Gastrointestinal: Gastrointestinal: Denies abdominal pain, Denies nausea and Denies vomiting Musculoskeletal: Musculoskeletal: Denies back pain Neurologic: Denies vertigo and Denies dizziness Psychiatric: Psychiatric: Denies anxiety PMFSH Past Medical History Medical History Tubular adenoma Hx of radiation therapy Lab test negative for COVID-19 virus Hx of sickle cell trait Depression Sleep apnea Elevated cholesterol Hx of cardiac murmur Obesity Incomplete emptying of bladder Wrist fracture, right Osteopenia Peripheral vascular disease Hypercholesterolemia History of breast cancer Dysthymia Surgical History H/O colonoscopy History of left mastectomy History of cataract surgery H/O foot surgery H/O breast reconstruction Family History Family History Father Multiple myeloma Mother Hypertension Brain aneurysm Social History Social History Housing: House Alcohol intake: never Patient Tobacco Use Status: Never used Tobacco Tobacco use type: Cigarette Smoked in Last 30 Days: No e-Cigarette/Vaping Use: Never Used Second Hand Smoke Exposure: No Use of substances other than those prescribed or required for medical reasons: No Advance Directives: Yes Advance Directives on File: Yes Advance Directives Date on File: 12/30/20 Do you have a plan to hurt others: No Plan service: No Current occupational status: retired Current occupational exposures/hazards: No Cognitive needs: No Hearing needs: No Vision needs: Yes Physical Exam Vital Signs: Vital Signs: Last Vital Signs Temp 98.2 F 10/23/24 22:26 Pulse 53 10/23/24 22:26 Resp 13 10/23/24 22:26 BP 149/53 H 10/23/24 22:26 Pulse Ox 96 10/23/24 22:26 O2 Del Method Room Air 10/23/24 22:26 BMI result Body Mass Index 32.3 Const: General: healthy appearing, comfortable, no acute distress, alert and awake Nutritional Appearance: well nourished Orientation/consciousness: patient oriented x3 HEENT: Head: Yes normocephalic and Yes atraumatic Eyes: Eyelids: Yes eyelids normal Conjunctivae: conjunctivae normal Sclerae: sclerae normal Corneas: corneas normal Pupils: Equal, round and reactive pupils present EOM: EOMs intact bilaterally Neck: Neck: Yes full ROM Chest: Chest palpation & inspection: normal inspection of the chest Resp: Effort & Inspection: normal respiratory effort, able to speak in complete sentences, no audible wheezes and not labored Auscultation: clear to auscultation bilaterally Cardio: Rate: regular rate Rhythm: regular rhythm GI: Inspection: No distended Palpation (GI): Soft to palpation, not firm, nontender, no guarding and not rigid Skin: General skin exam: elasticity normal Neuro: General: patient oriented x3 Cranial nerves: Yes Equal, round and reactive pupils present and Yes Bilaterally intact EOM present Cognition (Neuro): normal cognition Medical Decision Making Medical Decision Making MDM Narrative: 74-year-old female with a past medical history as above presents for evaluation of left-sided chest pain over last few hours. Pain is intermittent and stabbing, she describes that as an electricity or shocking sensation. In his unrelated to exertion. The pain comes on every few sec. Her EKG is nonischemic, normal sinus rhythm without ST-T changes. I did add on a D-dimer due to her recent travel to [place] and recent trip to [place]. This was within normal limits, rules out PE. She had negative troponin x2, this rules out ACS. Given the patient's description of her pain, this may be a prodrome for an onset of shingles but there is no rash, so we will not she. The patient was encouraged to evaluate for any rash. She will follow up with the primary care provider and return for new or worsening symptoms. She also denies any recent flu-like symptoms or viral illness, this is less likely costochondritis. Chest x-ray does not show any pleural effusions or pneumonia. There was no trauma to suggest rib fracture or pneumothorax Differential Diagnosis Differential Diagnoses: The differential diagnosis associated with the presentation includes Chest pain ACS Bronchitis Pneumothorax Shingles Neuropathy Costochondritis Admission/Observation Consideration of admission/observation: Escalation of care including admission/observation considered Patient rules out for ACS, he is not septic or hypoxic Lab Data [facility] Lab Attestation statement: I reviewed the patient's lab results. No leukocytosis or significant anemia. Normal platelet count. No significant electrolyte abnormalities warranting dimension. Troponin negative x2, D-dimer within normal limits. 10/23/24 21:00 10/23/24 21:00 Labs: Lab Results 10/23/24 10/23/24 Range/Units 21:00 22:47 WBC 6.6 (4.8-10.8) X10*3/uL RBC 4.06 L (4.20-5.50) X10*6/uL Hgb 11.5 L (12.0-16.0) g/dl Hct 34.3 L (37.0-47.0) % MCV 84.5 (80.0-98.0) fL MCH 28.3 (27.0-33.0) pg MCHC 33.5 (31.0-35.0) g/dl RDW 13.9 (11.0-16.0) % Plt Count 316 (160-400) X10*3/uL MPV 10.7 (9.4-12.3) fL Immature Gran % (Auto) 0.6 H (0.0-0.4) % Neut % (Auto) 60.8 (45-73) % Lymph % (Auto) 28.2 (20-40) % [place] % (Auto) 7.7 (2-11) % Eos % (Auto) 2.1 (0-4) % Baso % (Auto) 0.6 (0-2) % Lymph # (Auto) 1.9 (1.2-4.9) X10*3/uL [place] # (Auto) 0.5 (0.1-1.2) X10*3/uL Eos # (Auto) 0.1 (0.0-0.4) X10*3/uL Baso # (Auto) 0.0 (0.0-0.2) X10*3/uL Abs Immat Gran (auto) 0.04 H (0.00-0.03) X10*3/uL Absolute Neuts (auto) 4.0 (2.0-8.3) x10*3/uL Absolute Nucleated RBC 0.030 H (0.0-0.012) X10*3/uL Nucleated RBC % (auto) 0.5 H (0.0-0.2) /100WBC D-Dimer High Sensitivty 187 NG/ML Sodium 143 (135-145) mmol/L Potassium 4.1 (3.3-5.1) mmol/L Chloride 108 (96-108) mmol/L Carbon Dioxide 27 (22-29) mmol/L Anion Gap 12 (12-20) BUN 19 H (9-16) mg/dL Creatinine 0.92 (0.5-1.4) mg/dL Estim Creat Clear Calc 62.6 Estimated GFR > 60 Random Glucose 109 (60-115) mg/dL Calcium 8.9 (8.4-10.2) mg/dL Total Bilirubin 0.1 (0.0-1.0) mg/dL AST 26 (5-31) U/L ALT 25 (0-31) U/L Alkaline Phosphatase 90 (39-117) U/L Troponin I High Sens 2.7 < 2.7 (<3.5-17.0) ng/L Total Protein 7.3 (6.5-8.0) g/dL Albumin 3.9 (3.5-5.0) g/dL Independent Interpretation I performed an independent interpretation of an: EKG (Normal sinus rhythm with a rate of [address] segment elevations or depressions.) Radiology Impression Discussion of test interpretation with radiology: I have reviewed the radiologist's reading. Radiologist Impression: Findings: Mild elevation of the hemidiaphragm with mild left basilar atelectasis/pneumonitis. No pneumothorax or pleural effusion, in this one view study. Cardiac silhouette and mediastinal contours are within upper limits of normal. Degenerative changes include imaged AC joints. IMPRESSION: Mild left basilar atelectasis. This document has been electronically signed by: Dre Null MD on 10/23/2024 21:37:42 Discharge Plan Discharge Clinical Impression: Left-sided chest pain Patient Disposition: Home, Self-Care Instructions: Chest Pain (ED) Additional Instructions: Your workup in the ER today was reassuring. This includes your blood work, chest x-ray and EKG. You may use ibuprofen or Tylenol for pain. If he noticed a rash in the area of your pain developing over the next few days your symptoms are likely related to shingles Follow-up with your primary doctor, return for new or worsening symptoms Prescriptions: No Action citalopram 10 mg tablet 10 mg PO DAILY Qty: 90 2RF simvastatin 10 mg tablet 10 mg PO BEDTIME Qty: 90 2RF Lactase Fast Acting 9,000 unit tablet 9,000 unit PO QID PRN (Reason: Gastrointestinal Spasms Or Cramping) Rx Instructions: administer with meals and/or snacks multivitamin Tablet 1 tab PO DAILY cholecalciferol (vitamin D3) 50 mcg (2,000 unit) capsule 50 mcg PO DAILY sulfamethoxazole-trimethoprim [Bactrim DS] 800-160 mg tablet 1 tab PO BID 7 Days Qty: 14 0RF Print Language: Surinamese
[2024-10-23 23:29] LABS: Troponin-I High Sensitivity < 2.7 ng/L (<3.5-17.0)
[2024-10-24 00:32] VITALS: BP 149/53; PULSE 53; RESP 13; TEMP 36.8; O2SAT 96
== END 2024-10-23 23:52 | disposition home or self-care (01) ==
PROVIDERS: Physician Assistant; Emergency Provider Emergency Medicine; PCP Internal Medicine
DX: R07.89 Other chest pain (principal); Z85.3 Personal history of malignant neoplasm of breast; Z79.899 Other long term (current) drug therapy
CPT/HCPCS: 36415; 71045; 80053; 84484; 85025; 85379; 93005; 99283; 99284

== ENCOUNTER → 2024-10-23 20:39 | Outpatient (BNV) | payer MEDICARE, SELFPAY | PROVIDERS: Emergency Provider Emergency Medicine; PCP Internal Medicine; Visit Provider Internal Medicine Cardiovascular Disease | DX: R07.89 Other chest pain (principal) | CPT/HCPCS: 93010 ==

== ENCOUNTER → 2024-10-23 21:10 | Outpatient (BNV) | payer MEDICARE, SELFPAY | PROVIDERS: PCP Internal Medicine; Visit Provider Radiology Neuroradiology | DX: J98.11 Atelectasis (principal) | CPT/HCPCS: 71045 ==

== ENCOUNTER 2024-11-19 14:30 | Outpatient (AMB) | payer MEDICARE, SELFPAY ==
--- NOTE | 2024-11-19 14:35 | MHC.OFFVIS ---
Vital Signs 11/19/24 14:37 Height 5 ft 6 in Weight 225 lb BMI 36.3 Intake Visit Reasons: right knee pain Intake Note: Marcella 74 yr old female presents with complaints of right knee pain and giving way. The patient describes her pain as achy in nature. She states that several months ago her right knee did give out while she was in the shower. She has worn a knee brace in the past which gives her mild relief. 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 She has tried Tylenol and anti-inflammatory medicines which gave her mild relief. She has been able to lose weight with her [employer] program recently. She wishes to hold off on total knee replacement surgery if at all possible. Allergies lactose Allergy (Intermediate, Verified 11/19/24 14:42) Flatulence Medication List - Last Reviewed 11/19/24 by KAVON Stewart cholecalciferol (vitamin D3) 50 mcg PO DAILY citalopram 10 mg PO DAILY lactase (Lactase Fast Acting) 9,000 units PO QID PRN multivitamin 1 tab PO DAILY simvastatin 10 mg PO BEDTIME sulfamethoxazole-trimethoprim 800-160 mg (Bactrim DS) 1 tab PO BID 7 days PFSH Medical History Tubular adenoma Hx of radiation therapy Lab test negative for COVID-19 virus Hx of sickle cell trait Depression Sleep apnea Elevated cholesterol Hx of cardiac murmur Obesity Incomplete emptying of bladder Wrist fracture, right Osteopenia Peripheral vascular disease Hypercholesterolemia History of breast cancer Dysthymia Surgical History H/O colonoscopy History of left mastectomy History of cataract surgery H/O foot surgery H/O breast reconstruction Family History Father Multiple myeloma Mother Hypertension Brain aneurysm Social History (Updated 11/19/24 @ 14:43 by KAVON Stewart) Housing: House Alcohol intake: never Patient Tobacco Use Status: Never used Tobacco Tobacco use type: Cigarette e-Cigarette/Vaping Use: Never Used Second Hand Smoke Exposure: No Advance Directives Date on File: 12/30/20 service: No Current occupational status: retired 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 Current occupational exposures/hazards: No Cognitive needs: No Hearing needs: No Vision needs: Yes Physical Exam Vital Signs: BMI result Body Mass Index 36.3 Const Other: Well-nourished well-developed very friendly female awake alert and oriented x3 in no acute distress Extrem Other: Right knee examination shows a minimal effusion, palpable crepitus with range of motion, pain with range of motion, no instability Results Reviewed Results Reviewed: X-rays of the patient's right knee show moderate to severe joint space narrowing most significant in the patellofemoral joint, subchondral sclerosis, no acute bony abnormalities Assessment & Plan Assessment & Plan (1) Osteoarthritis of right knee: Code(s): M17.11 - Unilateral primary osteoarthritis, right knee Category: Medical Plan Ms. Pinzon presents with intermittent right knee pain and mechanical symptoms due to osteoarthritis. I had a lengthy discussion with the patient regarding the treatment options. I did recommend a viscosupplementation injection to help with her pain. She wishes to hold off on the injection for now. She will continue with her weight loss program. She will contact my office if she wishes to proceed with the viscosupplementation injection. Otherwise she will follow up on an as-needed basis. Feel free to call me at any time should questions regarding her orthopedic management arise. I spent 20 minutes in reviewing the patient's records and imaging studies, seeing the patient and documenting in the medical record. Coding Level of Care Code New Pt Level 3 (91172) Complex EM visit Add On G2211 Diagnoses Osteoarthritis of right knee M17.11
[2024-11-19 14:37] VITALS: BMI 36.3
--- OUTSIDE RECORDS SUMMARY | 2024-11-19 16:06 | XMS_ITS | Encounter Summary ---
Author Organization [facility] Address [address] [place] [address] Phone Care Team Providers Care Facility Security Officer Name Role Phone Elidia Chadwick MD Primary Care Provider [phone] Encounter Details Date Type Department Care Team (Late st Contact Info) Description 03/08/2023 Procedure Pass [facility] Holter Lab [address] [facility] [address] [facility], 5th Floor, [address] [place] [address] Social History Tobacco Use Types Packs/Day Years [...] documented as of this encounter Care Teams Facility Security Officer Relationship Specialty Start Date End Date Elidia Chadwick MD [address] [place] [address] PCP - General 06/25/14 documented as of this encounter Additional Source Comments The information contained in this document represents components of the legal health record. It is not the complete legal health record.[facility]
--- OUTSIDE RECORDS SUMMARY | 2024-11-19 16:06 | XMS_ITS | Clinical Summary ---
Author Organization [facility] Address [facility] [employer] [address] [address] Phone Care Team Providers Care Mechanic Insulator Name Role Phone Elidia Chadwick MD Primary Care Provider [phone] Allergies Active Allergy Reactions Criticality Noted Date [...] COLONOSCOPY 1997 OSTEOPOROSIS SCREENING INITIAL (ONE-TIME) 2017 MAMMOGRAM 02/08/2024 02/07/2022, 01/19, 02/06/2021, Additional history exists DEPRESSION SCREENING 03/03/2024 03/03/2023, 03/03/19 24 INFLUENZA VACCINE (#1) 2024 , 12/05/2020, 10/24/2019, Additional history exists COVID-19 VACCINE ( season) 2024 11/28/2022, 08/03/2022, 12/25/2021, Additional history exists Adult Td,Tdap Booster 05/24/2027 [...] file Insurance [place] [id number] [facility] MEDEX SUPPLEMENT MEDICARE PART A & B [employer] MEDEX SUPPLEMENT MEDICARE PART A & B [employer] MEDEX SUPPLEMENT MEDICARE PART A & B [employer] MEDEX SUPPLEMENT MEDICARE PART A & B [employer] MEDEX SUPPLEMENT MEDICARE PART A & B [employer] MEDEX SUPPLEMENT Care Teams Mechanic Insulator Relationship Specialty Start Date End Date Elidia Chadwick MD [address] [place] [address] PCP - General 06/25/14 Additional Source Comments The information contained in this document represents components of the legal health record. It is not the complete legal health record.[facility]
--- OUTSIDE RECORDS SUMMARY | 2024-11-19 16:06 | XMS_ITS | Encounter Summary ---
Author Organization [facility] Address [address] [place] [address] Phone Care Team Providers Care Communications Writer Name Role Phone Elidia Chadwick MD Primary Care Provider [phone] Encounter Details Date Type Department Care Team (Late st Contact Info) Description 03/08/2023 Procedure Pass MRI, [facility] [place] [address] [facility], [address] [place], [place] [id number] Social History Tobacco Use Types Packs/Day Years [...] documented as of this encounter Care Teams Communications Writer Relationship Specialty Start Date End Date Elidia Chadwick MD [address] [place] [address] PCP - General 06/25/14 documented as of this encounter Additional Source Comments The information contained in this document represents components of the legal health record. It is not the complete legal health record.[facility]
--- OUTSIDE RECORDS SUMMARY | 2024-11-19 16:06 | XMS_ITS | Clinical Summary ---
Author Organization [employer] Address [address] [facility] 7t [place] [address] Care Team Providers Care Fire Eater Name Role Phone Unavailable Primary Care Provider [...]
== END 2024-11-19 14:58 | disposition home or self-care (01) ==
LOC: HO.HOS 14:31
PROVIDERS: PCP Internal Medicine; Visit Provider Orthopaedic Surgery
DX: M17.11 Unilateral primary osteoarthritis, right knee (principal)
CPT/HCPCS: 99203; G2211

== ENCOUNTER → 2024-11-19 14:30 | Outpatient (BNVA) | payer MEDICARE, SELFPAY | PROVIDERS: PCP Internal Medicine; Visit Provider Orthopaedic Surgery | DX: M17.11 Unilateral primary osteoarthritis, right knee (principal) | CPT/HCPCS: 99202 ==

== ENCOUNTER 2024-11-27 09:33 | Outpatient (REF) | payer MEDICARE, SELFPAY ==
--- OUTSIDE RECORDS SUMMARY | 2024-11-30 09:41 | XMS_ITS | Encounter Summary ---
Author Organization [facility] Address [address] [place] [address] Phone Care Team Providers Care Women Nurse Name Role Phone Elidia Chadwick MD Primary Care Provider [phone] Encounter Details Date Type Department Care Team (Late st Contact Info) Description 03/08/2023 Procedure Pass [facility] [address] [facility], 5th [address], [address] [place] [address] Social History Tobacco Use Types Packs/Day Years [...] documented as of this encounter Care Teams Women Nurse Relationship Specialty Start Date End Date Elidia Chadwick MD [address] [place] [address] PCP - General 06/25/14 documented as of this encounter Additional Source Comments The information contained in this document represents components of the legal health record. It is not the complete legal health record.[facility]
--- OUTSIDE RECORDS SUMMARY | 2024-11-30 09:41 | XMS_ITS | Clinical Summary ---
Author Organization [employer] Address [address] [facility] 7t [place] [address] Care Team Providers Care Cylinder Worker Name Role Phone Unavailable Primary Care Provider [...] Tobacco Screening 1962 Hepatitis C Screening 1970 Hepatitis B Vaccines (2 of 3 - Hep B Twinrix 3-dose series) 09/07/2024 08/10/2024 Influenza Vaccine (#1) 2024 , 11/01/2022, 12/05/2020, Additional history exists Mammogram 02/19/2026 02/20/2024, 1202/2021, 02/06/2021, Additional history exists RSV Patients and Patients Aged 60 years or older (1 - 1-dose 75+ series) 10/21/2027 DTaP/Tdap/Td Vaccines (3 - Td or Tdap) 08/10/2034 08/10/2024, 05/23/2017 Zoster Vaccines Completed 12/27/2018, 10/22/2018 Pneumococcal Vaccine: 50+ Years Completed 04/05/2021, 01/01/2018, 12/21/2017, Additional history exists COVID-19 Vaccine Completed 05/12/2024, , 05/17/2023, Additional history exists Hepatitis A Vaccines Aged Out 08/10/2024 No long er eligible based on patient's age to complete this topic HIB Vaccines Aged Out No longer eligi [...] age to complete [place] [id number] [facility] MEDEX MEDICARE SUPPLEMENT
--- OUTSIDE RECORDS SUMMARY | 2024-11-30 09:41 | XMS_ITS | Clinical Summary ---
Author Organization [facility] Address [facility] [address] [address] Phone Care Team Providers Care Admissions Clerk Name Role Phone Elidia Chadwick MD Primary Care Provider [phone] Allergies Active Allergy Reactions Criticality Noted Date [...] Subscriber Plan / Payer (Ef fective 2017-Present) Name:Marcella Pinzon Member ID:[id number] Relation to Subscriber:Self Name:Marcella Pinzon Subscriber ID:[id number] Payer ID:[id number] Group ID:Not on file Type:Medicare Address: [facility] [employer] [facility] [address] [place] [address] [place] [address] [facility] MEDEX SUPPLEMENT MEDICARE PART A & B [employer] MEDEX SUPPLEMENT MEDICARE PART A & B [employer] MEDEX SUPPLEMENT MEDICARE PART A & B [employer] MEDEX SUPPLEMENT MEDICARE PART A & B [employer] MEDEX SUPPLEMENT MEDICARE PART A & B Member Subscriber Plan / Payer ( fective 2017-Present) Name:Marcella Pinzon Member ID:[id number] Relation to Subscriber:Self Name:Marcella Pinzon Subscriber ID:[id number] Payer ID:[id number] Group ID:Not on file Type:Medicare Address: [employer] [address] [place] [address] [employer] MEDEX SUPPLEMENT Care Teams Admissions Clerk Relationship Specialty Start Date End Date Elidia Chadwick MD [address] [place] [address] PCP - General 06/25/14 Additional Source Comments The information contained in this document represents components of the legal health record. It is not the complete legal health record.[facility]
--- OUTSIDE RECORDS SUMMARY | 2024-11-30 09:41 | XMS_ITS | Encounter Summary ---
Author Organization [facility] Address [address] [place] [address] Phone Care Team Providers Care Hunting Guide Name Role Phone Elidia Chadwick MD Primary Care Provider [phone] Encounter Details Date Type Department Care Team (Late st Contact Info) Description 03/08/2023 Procedure Pass MRI, [facility] [place] [address] [facility], [address] [place], [place] [id number] Social History Tobacco Use Types Packs/Day Years [...] documented as of this encounter Care Teams Hunting Guide Relationship Specialty Start Date End Date Elidia Chadwick MD [address] [place] [address] PCP - General 06/25/14 documented as of this encounter Additional Source Comments The information contained in this document represents components of the legal health record. It is not the complete legal health record.[facility]
== END 2024-11-27 09:34 | disposition home or self-care (01) ==
LOC: HO.HOSX 09:33
PROVIDERS: Visit Provider Physician Assistant
DX: Z13.89 Encounter for screening for other disorder (principal)

== ENCOUNTER 2024-12-08 13:50 | Outpatient (REF) | payer MEDICARE, SELFPAY ==
--- NOTE | ~2024-12-08 | US_ITS ---
CLINICAL HISTORY: R33.9 - Retention of urine, unspecified Ultrasound kidneys. COMPARISON: US renal dated 05/03/23 at 09:55 EDT Technique: Real time sonographic imaging, including color-flow imaging, was performed by the cyber engineer. Multiple hotel services sales representative static images were saved for review. FINDINGS: Right kidney: Cortical medullary differentiation is maintained. Normal color flow by Doppler. No calculus or focal parenchymal abnormality identified. No hydronephrosis. Right kidney size: 9.9 x 4.5 x 3.8 cm Left kidney: Cortical medullary differentiation is maintained. Normal color flow by Doppler. No calculus or focal parenchymal abnormality identified. Mild left hydronephrosis. Left kidney size: 10.0 x 5.8 x 4.4 cm The urinary bladder distended. Bilateral ureteral jets visualized. Prevoid volume: 467 mL Postvoid volume: 455 mL PVR: 97 percent. Incidentally imaged simple hepatic cyst within the right lobe measuring up to 2.3 cm. IMPRESSION: 1. Urinary bladder retention. Postvoid residual volume of 455 mL. 2. Mild left hydronephrosis. No obstructing renal or ureteral calculus identified. This document has been electronically signed by: Luis Barba MD on 12/09/2024 15:24:06
--- OUTSIDE RECORDS SUMMARY | 2024-12-08 18:30 | XMS_ITS | Encounter Summary ---
Author Organization [facility] Address [address] [place] [address] Phone Care Team Providers Care Office Nurse Practitioner Name Role Phone Elidia Chadwick MD Primary Care Provider [phone] Encounter Details Date Type Department Care Team (Late st Contact Info) Description 03/08/2023 Procedure Pass MRI, [facility] [place] [address], [address] [place], [place] [id number] Social History Tobacco Use Types Packs/Day Years [...] documented as of this encounter Care Teams Office Nurse Practitioner Relationship Specialty Start Date End Date Elidia Chadwick MD [address] [place] [address] PCP - General 06/25/14 documented as of this encounter Additional Source Comments The information contained in this document represents components of the legal health record. It is not the complete legal health record.[facility]
--- OUTSIDE RECORDS SUMMARY | 2024-12-08 18:30 | XMS_ITS | Clinical Summary ---
Author Organization [facility] Address [facility] [address] [place] [address] [address] Phone Care Team Providers Care Swing Tender Name Role Phone Elidia Chadwick MD Primary Care Provider [phone] Allergies Active Allergy Reactions Criticality Noted Date [...] Payer (Ef fective 2017-Present) Name:Marcella Pinzon Member ID:[id number] Relation to Subscriber:Self Name:Marcella Pinzon Subscriber ID:[id number] Payer ID:[id number] Group ID:Not on file Type:Medicare Address: [facility] [address] [place] [address] [place] [address] [facility] MEDEX SUPPLEMENT MEDICARE PART A & B [employer] MEDEX SUPPLEMENT MEDICARE PART A & B [employer] [place] MEDEX SUPPLEMENT MEDICARE PART A & B [employer] MEDEX SUPPLEMENT MEDICARE PART A & B [employer] [place] MEDEX SUPPLEMENT MEDICARE PART A & B [employer] MEDEX SUPPLEMENT Care Teams Swing Tender Relationship Specialty Start Date End Date Elidia Chadwick MD [address] [place] [address] PCP - General 06/25/14 Additional Source Comments The information contained in this document represents components of the legal health record. It is not the complete legal health record.[facility]
--- OUTSIDE RECORDS SUMMARY | 2024-12-08 18:30 | XMS_ITS | Encounter Summary ---
Author Organization [facility] Address [address] [place] [address] Phone Care Team Providers Care Travel Registered Nurse Oncology Name Role Phone Elidia Chadwick MD Primary Care Provider [phone] Encounter Details Date Type Department Care Team (Late st Contact Info) Description 03/08/2023 Procedure Pass [facility] [address], [address] [place] [address] Social History Tobacco Use Types Packs/Day Years [...] documented as of this encounter Care Teams Travel Registered Nurse Oncology Relationship Specialty Start Date End Date Elidia Chadwick MD [address] [place] [address] PCP - General 06/25/14 documented as of this encounter Additional Source Comments The information contained in this document represents components of the legal health record. It is not the complete legal health record.[facility]
--- OUTSIDE RECORDS SUMMARY | 2024-12-08 18:30 | XMS_ITS | Clinical Summary ---
Author Organization [facility] Address [address] [place] [address] Care Team Providers Care Pocket Creaser Name Role Phone Unavailable Primary Care Provider Unavailabl e Encounters Date Type Department Care Team Description 11/26/2024 11:20 AM EDT Immunization [facility] [address] [place] [address] Serena Mondragon RN Encounter for vaccination; Encounter for immunization from Last 3 Months Immunizations Immunization Administration Dates Next Due Influenza, High Dose Seasonal, Preservative Free 11/26/2024 Pfizer Covid-19 Vaccine 12+ 11/26/2024, Social History Tobacco Use Types Packs/Day Years [...] Hep B Twinrix 3-dose series) 09/07/2024 08/10/2024 Mammogram 02/19/2026 02/20/2024, 12/02/2021, 02/06/2021, Additional history exists RSV Patients and Patients Aged 60 years or older (1 - 1-dose 75+ series) 10/21/2027 DTaP/Tdap/Td Vaccines (3 - Td or Tdap) 08/10/2034 08/10/2024, 05/23/2017 Zoster Vaccines Completed 12/27/2018, 10/22/2018 Pneumococcal Vaccine: 50+ Years Completed 04/05/2021, 01/01/2018, 12/21/2017, Additional history exists Hepatitis A Vaccines Aged Out 08/10/2024 No long er eligible based on patient's age to complete this topic COVID-19 Vaccine Completed 11/26/2024, , 11/15/2023, Additional history exists Influenza Vaccine Completed 11/26/2024, , 11/01/2022, Additional history exists HIB Vaccines Aged Out No longer eligi [...] to complete [place] [id number] [facility] MEDEX MEDICARE SUPPLEMENT
== END 2024-12-08 13:51 | disposition home or self-care (01) ==
LOC: HO.US 13:50
PROVIDERS: PCP Internal Medicine; Visit Provider Nurse Practitioner Family
DX: R33.9 Retention of urine, unspecified (principal)
CPT/HCPCS: 76770

== ENCOUNTER → 2024-12-08 13:54 | Outpatient (BNV) | payer MEDICARE, SELFPAY | PROVIDERS: PCP Internal Medicine; Visit Provider Radiology Diagnostic Radiology | DX: R33.9 Retention of urine, unspecified (principal); N13.30 Unspecified hydronephrosis | CPT/HCPCS: 76770 ==

== ENCOUNTER 2024-12-15 12:21 | Outpatient (AMB) | payer MEDICARE, SELFPAY ==
--- NOTE | 2024-12-15 12:32 | A.OFFVIS_ITS ---
Intake Vital Signs 12/15/24 12:33 Height 5 ft 6 in BMI Reason not done Patient refused/unable BP 124/66 Blood Pressure Location Rt brachial Position Sitting Pulse 48 L Pulse Source Pulse Oximeter Temp 97.1 F Temp Source Temporal Artery Scan Pulse Oximetry (%) 97 Oxygen Delivery Method Room Air Intake Visit Reasons: AWV Allergies lactose Allergy (Intermediate, Verified 12/15/24 15:00) Flatulence Medication List - Last Reconciled 12/15/24 by Elidia Chadwick MD cholecalciferol (vitamin D3) 50 mcg PO DAILY citalopram 10 mg PO DAILY lactase (Lactase Fast Acting) 9,000 units PO QID PRN multivitamin 1 tab PO DAILY simvastatin 10 mg PO BEDTIME HPI AWV HPI Details [facility] Dr. Riggs, urology [facility] gastroenterology [facility] podiatry neurology [facility] and [facility] Medical History Tubular adenoma Hx of radiation therapy Lab test negative for COVID-19 virus Hx of sickle cell trait Depression Sleep apnea Elevated cholesterol Hx of cardiac murmur Obesity Incomplete emptying of bladder Wrist fracture, right Osteopenia Peripheral vascular disease Hypercholesterolemia History of breast cancer Dysthymia Surgical History H/O colonoscopy History of left mastectomy History of cataract surgery H/O foot surgery H/O breast reconstruction Family History Father Multiple myeloma Mother Hypertension Brain aneurysm Social History Housing: House Alcohol intake: never Patient Tobacco Use Status: Never used Tobacco Tobacco use type: Cigarette e-Cigarette/Vaping Use: Never Used Second Hand Smoke Exposure: No Advance Directives Date on File: 12/30/20 service: No Current occupational status: retired 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 Current occupational exposures/hazards: No Cognitive needs: No Hearing needs: No Vision needs: Yes Questionnaire Medicare Wellness Checkup [age] What gender do you identify with?: female During the past 4 weeks, how much have you been bothered by emotional problems such as feeling anxious, depressed, irritable, sad or downhearted, and blue?: slightly During the past 4 weeks, has your physical & emotional health limited your social activities with family, friends, neighbors, or groups?: slightly During the past 4 weeks, how much bodily pain have you generally had?: no pain During the past 4 weeks, was someone available to help you if you needed & wanted help?: yes, as much as I wanted During the past 4 weeks, what was the hardest physical activity you could do for at least 2 minutes?: moderate Can you get to places out of walking distance without help? (For eg., can you travel alone on buses, taxis or drive your car?): Yes Can you go shopping for groceries or clothes without someone's help?: Yes Can you prepare your own meals?: Yes Can you do your housework without help?: Yes Because of any health problems, do you need the help of another person with your personal care needs such as eating, bathing, dressing or getting around the house?: No Can you handle your own money without help?: Yes During the past 4 weeks, how would you rate your health in general?: very good Are you having difficulties driving your car?: no Do you always fasten your seat belt when you are in a car?: yes, usually During past 4 weeks, have you been bothered by the following: never: Falling or dizzy when standing up, Sexual problems?, Teeth or denture problems? and Problems using the telephone?, seldom: Tiredness or fatigue? and sometimes: Trouble eating well? Have you fallen 2 or more times in the past year?: No Are you afraid of falling?: No Are you a smoker?: no During the past 4 weeks, how many drinks of wine, beer, or other alcoholic beverages did you have?: no alcohol at all Do you exercise for about 20 minutes 3 or more times a week?: no, I usually do not exercise this much Have you been given information to help with the following?: no: Hazards in your house that might hurt you? and no: Keeping track of your medications? How often do you have trouble taking medicines the way you have been told to take them?: I always take medicine as prescribed How confident are you that you can control & manage most of your health problems?: very confident What is your race?: Black or PHQ-9 Over the last 2 weeks, how often have you been bothered by any of the following problems? 1. Little interest or pleasure in doing things: several days 2. Feeling down, depressed, or hopeless: not at all 3. Trouble falling or staying asleep, or sleeping too much: several days 4. Feeling tired or having little energy: not at all 5. Poor appetite or overeating: several days 6. Feeling bad about yourself - or that you are a failure or have let yourself or your family down: several days 7. Trouble concentrating on things, such as reading the newspaper or watching television: not at all 8. Moving or speaking so slowly that other people could have noticed. Or the opposite - being so fidgety or restless that you have been moving around a lot more than usual: not at all 9. Thoughts that you would be better off or of hurting yourself in some way: not at all Total score: 4 Depression Screening Interpretation: Positive Depression Screening Done: Yes 55525 - PHQ-9 Billing: Yes Source: Developed by Drs. Tong Garcia, Sayda Moran, Rudy Lopez and colleagues, with an educational georgiana from [employer]. Review of Systems Const Denies poor appetite and Denies weakness Eyes Denies no additional complaints ENT Reports Normal hearing present, Denies dizziness, Denies nasal congestion, Denies tinnitus and Denies sore throat Card Denies chest pain, Denies syncope, Denies rapid heart rate and Denies dyspnea Resp Denies cough and Denies dyspnea GI Denies change in stool character, Reports constipation, Denies diarrhea, Denies nausea and Denies vomiting Denies urinary frequency, Denies difficulty voiding and Denies dysuria Neuro Reports Normal hearing present, Denies confusion, Denies dizziness, Denies syncope and Denies weakness Psych Denies confusion Physical Exam Vital Signs: Last Vital Signs Temp 97.1 F 12/15/24 12:33 Pulse 48 L 12/15/24 12:33 BP 124/66 12/15/24 12:33 Pulse Ox 97 12/15/24 12:33 Oxygen Delivery Method Room Air 12/15/24 12:33 Const General: No confusion Orientation/consciousness: No confusion HEENT Head: Yes normocephalic Ears: external ears normal and TM's normal bilaterally Face and sinus: Yes normal facial exam Mouth: moist mucous membranes Throat: Yes tonsils normal Eyes Conjunctivae: conjunctivae normal Pupils: Equal, round and reactive pupils present and Pupil accommodation reflex normal Direct Ophthalmoscopy: normal light reflex Neck Neck: No lymphadenopathy Thyroid: Thyroid normal Chest Chest palpation & inspection: normal inspection of the chest Resp Effort & Inspection: normal respiratory effort and no audible wheezes Auscultation: clear to auscultation bilaterally, no crackles, no wheezes and lung sounds not diminished Cardio Rate: regular rate Rhythm: regular rhythm Peripheral pulses: radial pulses present and dorsalis pedis present GI Palpation (GI): no masses Auscultation: normal bowel sounds and normoactive bowel sounds Rectal Exam - Female: deferred Skin General skin exam: no rashes or lesions noted Rashes: no rashes Neuro General: No confusion Cranial nerves: Yes Equal, round and reactive pupils present and Yes Normal hearing present Cognition (Neuro): normal cognition Gait exam (Neuro): Normal gait present Motor exam (neuro): 5/5 motor strength present throughout Deep tendon reflexes (DTR's): Right brachioradialis reflex intensity grade: 2+, Left brachioradialis reflex intensity grade: 2+, Right patellar reflex intensity grade: 2+ and Left patellar reflex intensity grade: 2+ Extrem General: No edema Assessment & Plan Assessment & Plan (1) Medicare annual wellness visit, subsequent: Code(s): Z00.00 - Encounter for general adult medical examination without abnormal findings Plan: Patient is advised to eat healthy, keep well hydrated, keep active and have adequate sleep. (2) Dysthymia: Comment: Therapist retired and looking for new one (06/2021) still looking (05/2023) August 2023 Elba Lamb [facility] Code(s): F34.1 - Dysthymic disorder Plan: Continue with therapy and need for counseling (3) Hypercholesterolemia: Code(s): E78.00 - Pure hypercholesterolemia, unspecified Plan: Avoid fried foods, chicken skin, eggs, butter margarine, pastries and meat. Be it pork or beef they have a lot of cholesterol LDL goal of less than 130 and triglyceride of less than 150 on simvastatin 10 mg at bedtime (4) Impaired glucose tolerance: Code(s): R73.02 - Impaired glucose tolerance (oral) Plan: Decrease the amount of carbohydrate intake, pasta, bread, rice and potatoes are all sugar and that is aside from all the sweet stuff, remember that fruits are good but they are Sweet also. (5) Obesity: Code(s): E66.9 - Obesity, unspecified Plan: Diet and exercise (6) Urinary retention with incomplete bladder emptying: Comment: Self cath Code(s): R33.9 - Retention of urine, unspecified Plan: Patient is being followed up by Urology and does self catheterization Plan History of Present Illness The patient is a 74-year-old obese female presenting for an annual wellness visit. She was last seen for right knee pain in July 2024 and had an ER visit on October 23 for left-sided chest pain, which was diagnosed as costochondritis after a negative workup. The patient has not experienced any falls since her last visit. The patient has a history of multiple chronic conditions, including peripheral vascular disease and a history of syncope, though she denies recent episodes of syncope or dizziness. She has hypercholesterolemia with a last LDL of 136 mg/dL in September and takes simvastatin 10 mg. She also has impaired glucose tolerance, with a blood sugar of 109 mg/dL on October 23. Regarding her genitourinary history, she has chronic urinary retention and is followed by urology, performing self-catheterization six times a day. An ultrasound in November 2020 revealed a post-void residual of 455 cc and mild left hydronephrosis. She had a urinary tract infection in September 2026. Her gastrointestinal history is significant for a tubular adenoma of the colon, with the last colonoscopy in April 2024 finding precancerous polyps. A recent gastrointestinal issue has resolved, and her bowel movements are back to normal. In terms of musculoskeletal health, the patient has osteoarthritis of the right knee and follows up with orthopedics. Injections were recommended but declined by the patient. Recent blood work from October 23 showed a mild anemia with a hemoglobin of 11.5. The patient notes a history of low iron and previously stopped taking iron supplements due to constipation. Her current medications include vitamin D, escitalopram 10 mg, lactase, multivitamins, and simvastatin 10 mg. Her therapist also prescribed bupropion, which she has not yet started. She has no known drug allergies. Health screenings are up to date, including a mammogram in February 2024 and a normal bone density scan in September 2021. She had an eye exam in the summer which was normal. Health Maintenance - Colon Cancer Screening: Last colonoscopy was in April 2024, which found a tubular adenoma. - Screening guidelines were discussed, indicating they can continue up to age 80. - Breast Cancer Screening: Mammogram is up to date as of February 2024. - Guidelines were discussed, noting screening can continue to age 75 with shared decision-making. - Osteoporosis Screening: Last bone density scan in September 2021 was normal. - The patient has elected to defer the next scan until next year. - Cervical Cancer Screening: The patient is followed by a dope worker; screening has likely stopped per guidelines discussed (age 70 with negative HPV). - Vision Screening: The patient had an eye exam this summer, and her vision was reported as fine. - Immunizations: The patient is up to date on shingles, tetanus, pneumonia, and flu shots. - She received the COVID-19 shot in November. - The RSV vaccine was recommended as a one-time immunization available at the [facility]. - Advance Care Planning: The patient has a healthcare proxy form and provided a copy for her chart. - Fall Prevention: The patient denies any falls since her last visit. Social History - Substance Use: The patient denies smoking, alcohol use, and recreational drug use. - Exercise: The patient uses an elliptical every day. - Diet and Nutrition: The patient reports eating a healthy diet but acknowledges that weight remains a challenge. - Mental Health: The patient sees a therapist. Review of Systems - Constitutional: Denies fever. - Reports some weight loss. - Neurological: Denies syncope or dizziness. - HEENT: Denies hearing problems or difficulty swallowing. - Cardiovascular: Denies chest pain, heaviness, or discomfort. - Respiratory: Denies waking up with shortness of breath. - Gastrointestinal: Denies nausea, vomiting, or heartburn. - Reports bowel movements are back to normal. - Musculoskeletal: Denies falls since last visit. Physical Exam General: Cooperative, healthy appearing, comfortable, no acute distress and well developed Orientation: Patient oriented x3 Limitations: No limitations Head: Normal to inspection Ears: Hearing grossly normal bilaterally Nose: Normal external nose present Face and sinus: Normal facial exam Eyes: Appearance normal, both eyes and all related structures Neck: Normal visual inspection and Yes full ROM Respiratory: Normal respiratory effort and able to speak in complete sentences. Clear to auscultation bilaterally Cardiovascular: Regular rate and rhythm. Normal S1 and S2. Extra beats noted, but not causing dizziness or syncope GI: Normal to inspection. Soft to palpation and nontender Skin: No rashes or lesions noted Neuro: Patient oriented x3 Extremities: Normal to inspection Results - Labs (October 23): - CBC: Hemoglobin 11.5, Hematocrit 34.3, consistent with mild anemia. - CMP: Electrolytes normal, renal function good, blood sugar elevated at 109 mg/dL, liver function tests good. - Labs (September): - Lipid Panel: LDL elevated at 136 mg/dL. - B12, Folic Acid, Thyroid: All within normal limits. - Urinalysis (October 14): Positive for UTI. - Imaging: - Bladder Ultrasound (November 2020): Post-void residual of 455 cc, mild left hydronephrosis, no renal calculus. - Mammogram (February 2024): Results were up to date. - Bone Density (September 2021): Normal. - Procedures: - Colonoscopy (April 2024): Revealed a tubular adenoma. Plan Patient was informed and verbally consented to the use of an ambient scribe for clinic note documentation during this visit. 1. Annual Wellness Visit The patient presents for a wellness visit. Discussed continued therapy and need for counseling. Reviewed health maintenance screenings; patient will defer bone density scan until next year. Recommended RSV vaccination. Patient provided a copy of her healthcare proxy form. 2. Hypercholesterolemia The patient's LDL was 136 in September, which is above the goal of less than 130. Continue simvastatin 10 mg at bedtime. Will recheck lipids with follow-up blood work. 3. Impaired Glucose Tolerance Blood sugar was elevated at 109 mg/dL in October. Plan includes encouraging diet and exercise. Will repeat blood sugar testing in the next couple of months. 4. Mild Anemia Labs from October 23 showed a mild anemia with a hemoglobin of 11.5. As part of the workup for anemia and given the patient's normal colonoscopy, the plan is to check for nutritional deficiencies. A lab request will be provided to repeat the CBC and check B12 and iron levels, to be completed in the next couple of months. 5. Chronic Urinary Retention The patient is followed by urology and performs self-catheterization. This condition has led to mild left hydronephrosis. Continue current management and follow-up with urology. 6. Osteoarthritis Of The Right Knee The patient follows with orthopedics for this condition. She has previously declined recommended injections. Continue conservative management as per patient preference. Discussion Notes I discussed the patient's recent lab results, including the mild anemia, elevated blood sugar, and high LDL cholesterol. I explained the typical workup for anemia, noting that blood loss versus decreased production are the two main categories, and that her recent normal colonoscopy makes a significant GI bleed less likely as a cause. I provided her with a lab request to repeat her CBC and check iron and B12 levels, advising her she can have this done in the next couple of months. We reviewed the management of her hypercholesterolemia with simvastatin and the management of her impaired glucose tolerance with diet and exercise. I also informed her that her heart exam revealed extra beats, which are common, but counselled her to report any associated dizziness or syncope. We discussed her health maintenance schedule, and she opted to defer her bone density scan until next year. I recommended she get the RSV vaccine. We also discussed her an advance care planning document, and I affirmed that her decisions are her own. Patient Instructions - Please have your follow-up blood work done in the next couple of months to recheck your blood count, sugar, and iron levels. - Continue taking your simvastatin 10 mg at bedtime for your cholesterol. - Continue your daily exercise on the elliptical and maintain a healthy diet to help manage your blood sugar and weight. - Continue performing self-catheterization as instructed by your urology specialist. - Please inform us if you decide to start taking the new medication (Viltrin) prescribed by your therapist. - You can get the RSV (cold virus) vaccine, which is a one-time shot, at a pharmacy. - Report any new symptoms of dizziness, passing out, or chest pain. - We will plan to repeat your bone density scan next year, as you requested. Orders: Orders Complete Blood Count Auto Diff 2 Months R73.02 - Impaired glucose tolerance (oral) Ferritin 2 Months R73.02 - Impaired glucose tolerance (oral) Lipid Panel 2 Months E78.00 - Pure hypercholesterolemia, unspecified, R73.02 - Impaired glucose tolerance (oral) Thyroid Stimulating Hormone 2 Months R73.02 - Impaired glucose tolerance (oral) Vitamin B12 and Folate 2 Months R73.02 - Impaired glucose tolerance (oral) UA CC w/rflx Micro + Cult 2 Months R30.0 - Dysuria, R73.02 - Impaired glucose tolerance (oral) Hemoglobin A1c 2 Months R73.02 - Impaired glucose tolerance (oral) Comprehensive Met. Panel 2 Months R73.02 - Impaired glucose tolerance (oral) IRON PROFILE 2 Months R73.02 - Impaired glucose tolerance (oral) Reticulocyte Count 2 Months R73.02 - Impaired glucose tolerance (oral) Free T4 (Free Thyroxine) 2 Months R73.02 - Impaired glucose tolerance (oral) Vitamin D 25-OH Total 2 Months R73.02 - Impaired glucose tolerance (oral) Quality Reporting (2019) Depression/Bipolar (159/160/161/177) PHQ-9: Total score: 4 Coding Level of Care Code Medicare Subsequent (G0439) Diagnoses Medicare annual wellness visit, subsequent Z00.00 Dysthymia F34.1 Hypercholesterolemia E78.00 Impaired glucose tolerance R73.02 Obesity E66.9 Urinary retention with incomplete bladder emptying R33.9 Additional Codes PHQ-9 - 14371 - PHQ-9 Billing: Yes ([id number])
[2024-12-15 12:33] VITALS: BP 124/66; PULSE 48; TEMP 36.2; O2SAT 97
--- OUTSIDE RECORDS SUMMARY | 2024-12-15 15:38 | XMS_ITS | Encounter Summary ---
Author Organization [facility] Address [address] [place] [address] Phone Care Team Providers Care Instructor Of Sociology Name Role Phone Elidia Chadwick MD Primary Care Provider [phone] Encounter Details Date Type Department Care Team (Late st Contact Info) Description 03/08/2023 Procedure Pass MRI, [facility] [place] [address], [address] [place], [place] [id number] Social History Tobacco Use Types Packs/Day Years [...] documented as of this encounter Care Teams Instructor Of Sociology Relationship Specialty Start Date End Date Elidia Chadwick MD [address] [place] [address] PCP - General 06/25/14 documented as of this encounter Additional Source Comments The information contained in this document represents components of the legal health record. It is not the complete legal health record.[facility]
--- OUTSIDE RECORDS SUMMARY | 2024-12-15 15:38 | XMS_ITS | Clinical Summary ---
Author Organization [facility] Address [facility] [employer] [address] [address] Phone Care Team Providers Care Cut Out Stitcher Name Role Phone Elidia Chadwick MD Primary Care Provider [phone] Allergies Active Allergy Reactions Criticality Noted Date [...] Payer (Ef fective 2017-Present) Name:Marcella Pinzon Member ID:[id number] Relation to Subscriber:Self Name:Marcella Pinzon Subscriber ID:[id number] Payer ID:[id number] Group ID:Not on file Type:Medicare Address: [facility] [employer] [facility] [employer] [facility] [address] [place] [address] [place] [id number] [facility] MEDEX SUPPLEMENT MEDICARE PART A & B [employer] MEDEX SUPPLEMENT MEDICARE PART A & B [employer] MEDEX SUPPLEMENT MEDICARE PART A & B [employer] MEDEX SUPPLEMENT MEDICARE PART A & B [employer] MEDEX SUPPLEMENT MEDICARE PART A & B [employer] MEDEX SUPPLEMENT Care Teams Cut Out Stitcher Relationship Specialty Start Date End Date Elidia Chadwick MD [address] [place] [address] PCP - General 06/25/14 Additional Source Comments The information contained in this document represents components of the legal health record. It is not the complete legal health record.[facility]
--- OUTSIDE RECORDS SUMMARY | 2024-12-15 15:38 | XMS_ITS | Clinical Summary ---
Author Organization [employer] Address [address] [place] [address] Care Team Providers Care Professor Of Geography Name Role Phone Unavailable Primary Care Provider Unavailabl e Encounters Date Type Department Care Team Description 11/26/2024 11:20 AM EDT Immunization [facility] [address] [place] [address] Serena Mondragon RN Encounter for vaccination; Encounter [...] to complete [place] [id number] [facility] MEDEX MEDICARE SUPPLEMENT
--- OUTSIDE RECORDS SUMMARY | 2024-12-15 15:38 | XMS_ITS | Encounter Summary ---
Author Organization [facility] Address [address] [place] [address] Phone Care Team Providers Care Behavioral Health Tech Name Role Phone Elidia Chadwick MD Primary Care Provider Encounter Details Date Type Department Care Team (Late st Contact Info) Description 03/08/2023 Procedure Pass [facility] [address], [address] [place] [address] Social History Tobacco Use Types Packs/Day Years [...] documented as of this encounter Care Teams Behavioral Health Tech Relationship Specialty Start Date End Date Elidia Chadwick MD [address] [place] [address] PCP - General 06/25/14 documented as of this encounter Additional Source Comments The information contained in this document represents components of the legal health record. It is not the complete legal health record.[facility]
== END 2024-12-15 13:12 | disposition home or self-care (01) ==
LOC: HO.HMCH 12:23
PROVIDERS: PCP Internal Medicine; Visit Provider Internal Medicine
DX: Z00.00 Encounter for general adult medical examination without abnormal findings (principal); F34.1 Dysthymic disorder; E78.00 Pure hypercholesterolemia, unspecified; R73.02 Impaired glucose tolerance (oral); E66.9 Obesity, unspecified; R33.9 Retention of urine, unspecified

== ENCOUNTER → 2024-12-15 12:21 | Outpatient (BNVA) | payer MEDICARE, SELFPAY | PROVIDERS: PCP Internal Medicine; Visit Provider Internal Medicine | DX: N39.0 Urinary tract infection, site not specified (principal); R33.9 Retention of urine, unspecified; Z13.31 Encounter for screening for depression | CPT/HCPCS: 96127; 99212 ==

== ENCOUNTER 2024-12-15 14:54 | Outpatient (AMB) | payer MEDICARE, SELFPAY ==
--- NOTE | 2024-12-15 14:56 | MHC.OFFVIS ---
Intake Visit Reasons: 2m/US/labs Intake Note: Patient presents today for: 2m/labs UROLOGY MEDICATIONS: NONE BLOOD THINNERS: NONE labs done 11/02/24: creat 0.92, BUN 19 US done: 12/09/24 Conductor Pullman Required: No Accompanied by: Self / Same As Patient Allergies lactose Allergy (Intermediate, Verified 12/15/24 19:57) Flatulence Medication List - Last Reconciled 12/15/24 by MARK BahenaP- cholecalciferol (vitamin D3) 50 mcg PO DAILY citalopram 10 mg PO DAILY lactase (Lactase Fast Acting) 9,000 units PO QID PRN multivitamin 1 tab PO DAILY simvastatin 10 mg PO BEDTIME HPI Comments Details: Marcella is a very pleasant 74-year-old female patient of Dr. Chadwick. 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 She presents to the office today for follow-up of her urinary retention/incomplete bladder emptying. In discussion with the patient today she reports having increased performing CIC as discussed during last office. She also reports having started a new bowel regimen and does feel since she has been going to the bathroom regularly she has been able to better empty her bladder independently. We did discuss correlation of constipation with lower urinary tract symptoms. Recent retroperitoneal ultrasound results reviewed with the patient today 12/12 mild left hydronephrosis. No obstructing renal or ureteral calculus identified bilaterally. Postvoid bladder volume 455 mL. We did discussed the importance of performing CIC in relation to incomplete bladder emptying. We also reviewed further treatment options of urinary retention/incomplete bladder emptying in risks and benefits of these interventions. She would like to continue with current management performing CIC 6-8 times per day as discussed. Unable to provide urine for urinalysis today however PVR 0 mL. Previous urine cultures are as follows: 10/09 E coli,02/09 Enterobacter cloacae complex, 05/11 E coli, 08/12 E coli, 10/12 E coli. BUN and creatinine results trended and reviewed with the patient today as noted and trended below: BUN: 04/11 14, 10/09 12, 05/10 15, 05/11 12, 05/11 12, 03/14 14, 10/12 13, 11/12 19 Creatinine: 04/11 0.83, 10/09 0.89, 05/10 0.79, 05/11 0.83, 05/11 0.85, 03/14 0.82, 10/12 0.96, 11/12 0.92 She denies urinary urgency, urinary frequency, incontinence, nocturia, hematuria, dysuria, foul smelling urine, changes to urinary stream, flank pain, fever, and or chills. She otherwise offers no issues or concerns at this time. Previous office note Urinary retention with incomplete bladder emptying ? No UTI since last? visit ?Using CIC twice a day ?She knows to use it more often? if she is drinking more fluid. ? They are here for ?further management for incomplete emptying neurogenic? bladder ?- CIC BID - has 8 oz on CIC is urinating for? herself.? Urinary retention initially found?after inability to void ?- Has been managed? with clean intermittent catheterization since 2009. Has occasional UTI.? According to patient urodynamics was performed which showed no bladder contraction. Was offered sacral stimulator..? Imaging? results?05/05 renal b u/s - retention? 200cc.? Associated conditions? Alzhiemers? ?No ? CAD ?No ? CVA ?No ? Diabetes ?No ? Multiple sclerosis ?No ? renal replacement therapy ?No ? Spinal injury/surgery? ?No ? Current management?clean intermittent catheterization. [facility] Medical History Tubular adenoma Hx of radiation therapy Lab test negative for COVID-19 virus Hx of sickle cell trait Depression Sleep apnea Elevated cholesterol Hx of cardiac murmur Obesity Incomplete emptying of bladder Wrist fracture, right Osteopenia Peripheral vascular disease Hypercholesterolemia History of breast cancer Dysthymia Surgical History H/O colonoscopy History of left mastectomy History of cataract surgery H/O foot surgery H/O breast reconstruction Family History Father Multiple myeloma Mother Hypertension Brain aneurysm Social History Housing: House Alcohol intake: never Patient Tobacco Use Status: Never used Tobacco Tobacco use type: Cigarette e-Cigarette/Vaping Use: Never Used Second Hand Smoke Exposure: No Advance Directives Date on File: 12/30/20 service: No Current occupational status: retired 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 Current occupational exposures/hazards: No Cognitive needs: No Hearing needs: No Vision needs: Yes Review of Systems Const Reports as per HPI Eyes Reports no additional complaints ENT Reports no additional complaints Card Reports as per HPI Resp Reports as per HPI GI Reports as per HPI Reports as per HPI Musc Reports no additional complaints Neuro Reports no additional complaints Psych Reports as per HPI Endo Reports no additional complaints Physical Exam Const General: cooperative, healthy appearing, comfortable, no acute distress, well developed, alert and awake Nutritional Appearance: overweight Orientation/consciousness: patient oriented x3 Limitations: no limitations HEENT Head: Yes normal to inspection, Yes normocephalic and Yes atraumatic Ears: hearing grossly normal bilaterally Eyes General: appearance normal, both eyes and all related structures Neck Neck: Yes normal visual inspection and Yes trachea midline Chest Chest palpation & inspection: normal inspection of the chest Resp Effort & Inspection: normal respiratory effort and able to speak in complete sentences Cardio Rate: regular rate GI Inspection: Yes normal to inspection General: Yes no CVA tenderness Back/Spine/Pelvis Back: no CVA tenderness Skin General skin exam: no rashes or lesions noted Neuro General: patient oriented x3 Extrem General: Yes normal to inspection Psych Appearance: grossly normal and well kempt Mental Status: mental status grossly normal Speech and movement: Normal speech and movement present and Clear speech present Affect: normal affect Attitude: cooperative Thought process: Normal thought process present Thought content: Normal thought content present Insight: Good insight present (Psych) Judgement: Good judgement present (Psych) Results Reviewed Results Reviewed: Date of Service: 12/08/24 Procedure(s): US retroperitoneal comp FINDINGS: Right kidney: Cortical medullary differentiation is maintained. Normal color flow by Doppler. No calculus or focal parenchymal abnormality identified. No hydronephrosis. Right kidney size: 9.9 x 4.5 x 3.8 cm Left kidney: Cortical medullary differentiation is maintained. Normal color flow by Doppler. No calculus or focal parenchymal abnormality identified. Mild left hydronephrosis. Left kidney size: 10.0 x 5.8 x 4.4 cm The urinary bladder distended. Bilateral ureteral jets visualized. Prevoid volume: 467 mL Postvoid volume: 455 mL PVR: 97 percent. Incidentally imaged simple hepatic cyst within the right lobe measuring up to 2.3 cm. IMPRESSION: 1. Urinary bladder retention. Postvoid residual volume of 455 mL. 2. Mild left hydronephrosis. No obstructing renal or ureteral calculus identified. Assessment & Plan Assessment & Plan (1) Complicated urinary tract infection: Code(s): N39.0 - Urinary tract infection, site not specified Category: Medical (2) Urinary retention with incomplete bladder emptying: Comment: Self cath Code(s): R33.9 - Retention of urine, unspecified Category: Medical Plan Unable to obtain urine for urinalysis as patient unable to void however PVR 0 mL. Recent retroperitoneal ultrasound results reviewed with the patient today; as noted above. We did discuss causes and affects of incomplete bladder emptying as well as further treatment options and risks and benefits of these treatment options. Patient would like to continue with current management and will perform CIC 6-8 times per day as discussed. We discussed importance of calling office with any UTI like symptoms. She currently denies any bothersome urinary issues or concerns. Most recent BUN and creatinine results reviewed with the patient today; as noted above. All questions were answered. Follow-up in 6 months with labs to be completed prior and PVR at next office visit; or sooner with any issues, concerns, and or questions. Orders: Orders Urine Cytology Today N39.0 - Urinary tract infection, site not specified Blood Urea Nitrogen 6 Months R39.15 - Urgency of urination Creatinine 6 Months R39.15 - Urgency of urination Patient Instructions: The patient had an opportunity to ask questions regarding the treatment plan. All questions were answered. Physical exam, labs, and imaging were discussed and reviewed in detail. As well as risks, benefits, and discussion of treatment choices. No major barriers to understanding were identified. The patient expressed understanding and agreement with the above treatment plan. The patient was made aware they should contact our office by phone for worsening of their current condition, the appearance of new symptoms, or with any questions or concerns. Compliance is encouraged with any medications and follow up testing that is ordered. It is a privilege to be allowed the opportunity to participate in? your urological care.? Again, if you have any questions or concerns If you have any questions or concerns please do not hesitate to contact me. The office is [phone]. This note is constructed using voice recognition software. While every effort has been made to ensure accuracy dog food dough mixer errors may have been included. Yours sincerely, CHARMAINE Bahena Coding Level of Care Code Est Pt Level 3 (07795) Complex EM visit Add On G2211 Diagnoses Complicated urinary tract infection N39.0 Urinary retention with incomplete bladder emptying R33.9
== END 2024-12-15 15:31 | disposition home or self-care (01) ==
LOC: HO.HUSH 14:55
PROVIDERS: PCP Internal Medicine; Visit Provider Nurse Practitioner Family
DX: N39.0 Urinary tract infection, site not specified (principal); R33.9 Retention of urine, unspecified
CPT/HCPCS: 99213; G2211

== ENCOUNTER 2025-01-26 08:52 | Outpatient (AMB) | payer MEDICARE, SELFPAY ==
[2025-01-26 09:09] VITALS: BMI 35.5
--- NOTE | 2025-01-26 09:09 | MHC.OFFVIS ---
Vital Signs 01/26/25 09:09 Height 5 ft 6 in Weight 220 lb BMI 35.5 Intake Visit Reasons: Foot Callous Intake Note: Marcella is a 74 year old female who presents to the office today as a new patient visit for a foot callous referred by her PCP Dr. Chadwick. Pt states this has been an ongoing issue for many years and she was seen previously seen by and then Dr. Cope who had treated her callous. She mentions having surgical history of bilateral feet to remove excess bone around the time she was [age]. Patient experiences pain when she doesn't maintain the callous shaved down. Allergies lactose Allergy (Intermediate, Verified 01/26/25 09:24) Flatulence HPI Comments Details: The patient is a 74 year old female with a past medical history as seen below presenting for painful calluses to bilateral feet. 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 She denies any purulence or drainage from the sites. Patient states she experiences pain when ambulating due to the increased thickness in the area of the feet. She denies any recent pedal injuries. She denies any other pedal concerns. COUNTS INCLUDE 234 BEDS AT THE [facility] Medical History Tubular adenoma Hx of radiation therapy Lab test negative for COVID-19 virus Hx of sickle cell trait Depression Sleep apnea Elevated cholesterol Hx of cardiac murmur Obesity Incomplete emptying of bladder Wrist fracture, right Osteopenia Peripheral vascular disease Hypercholesterolemia History of breast cancer Dysthymia Surgical History H/O colonoscopy History of left mastectomy History of cataract surgery H/O foot surgery H/O breast reconstruction Family History Father Multiple myeloma Mother Hypertension Brain aneurysm Social History Housing: House Alcohol intake: never Patient Tobacco Use Status: Never used Tobacco Tobacco use type: Cigarette e-Cigarette/Vaping Use: Never Used Second Hand Smoke Exposure: No Advance Directives Date on File: 12/30/20 service: No Current occupational status: retired 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 All systems reviewed & are unremarkable except as noted in HPI and below Physical Exam Vital Signs: BMI result Body Mass Index 35.5 Extrem Other: Bilateral lower extremity focused physical exam: Derm: Diffuse xerosis noted. Hyperkeratotic areas noted to the feet bilaterally in the area of the medial aspect of the halluces, submet 5, in distal tips of the 3rd digits. No open lesions abrasions or wounds noted. No active drainage, purulence, or bleeding noted skin supple and turgor within normal limits. No clinical signs of infection noted. Vascular: DP pulses mildly palpable/PT pulses nonpalpable. Capillary refill time less than 3 seconds. Temperature gradient warm to warm. Pedal hair absent. Varicosities noted. Neuro: Protective sensation is grossly intact. MSK: Pain on palpation to the hyperkeratotic areas of the feet bilaterally. No crepitus or fluctuance noted. Range of motion of the forefoot, hindfoot, and ankles within normal limits. Mildly antalgic gait unassisted noted. Bilateral bunions noted. Bilateral hammertoes noted. Office Procedures AMB Debridement/Avulsion Podia Details: Debrided the hyperkeratotic lesions using a 15. Blade without incidents. 06485-Sttadzakrpd of Callus (5+) Procedure code (CPT) selection complete Results Reviewed Results Reviewed: Laboratory Tests 09/29/24 10/23/24 07:51 21:00 WBC 6.6 Random Glucose 109 Hemoglobin A1c % 5.7 AST 26 ALT 25 Assessment & Plan Assessment & Plan (1) Peripheral vascular disease: Code(s): I73.9 - Peripheral vascular disease, unspecified Category: Medical (2) Bilateral foot pain: Code(s): M79.671 - Pain in right foot; M79.672 - Pain in left foot Category: Medical (3) Other specified epidermal thickening: Code(s): L85.8 - Other specified epidermal thickening Category: Medical (4) Intractable plantar keratosis: Code(s): L84 - Corns and callosities Category: Medical (5) Bilateral bunions: Code(s): M21.611 - Bunion of right foot; M21.612 - Bunion of left foot Category: Medical (6) Acquired hammertoes of both feet: Code(s): M20.41 - Other hammer toe(s) (acquired), right foot; M20.42 - Other hammer toe(s) (acquired), left foot Category: Medical Plan Patient was informed and verbally consented to the use of an ambient scribe for clinic note documentation during this visit. I discussed with patient plan for debridement of calluses. I also encouraged her continued use of shoe inserts. I recommended callus cushions to patient. - 6 calluses were debrided from bilateral feet. - The patient was advised to continue using her current shoe inserts and callus cushions were recommended. - Advised patient to use an emollient to the feet to reduce the rate of reoccurrence for the calluses. - Advised patient to wear supportive shoe gear and to avoid barefoot walking. RTC in 2 months. Orders: Orders AMB Debridement/Avulsion Podiatry Today I73.9 - Peripheral vascular disease, unspecified, L84 - Corns and callosities, L85.8 - Other specified epidermal thickening, M79.671 - Pain in right foot, M79.672 - Pain in left foot Coding Level of Care Code New Pt Level 3 (39111) Diagnoses Peripheral vascular disease I73.9 Bilateral foot pain M79.671; M79.672 Other specified epidermal thickening L85.8 Intractable plantar keratosis L84 Bilateral bunions M21.611; M21.612 Acquired hammertoes of both feet M20.41; M20.42 CPT Codes Skin Debridement - CPT: 96203-Ogyfcurpksz of Callus (5+) ([id number]) Time Spent (min) 43 Comment 13 mins for procedure
== END 2025-01-26 09:31 | disposition home or self-care (01) ==
LOC: HO.HPODS 08:53
PROVIDERS: PCP Internal Medicine; Visit Provider Student in an Organized Health Care Education/Training Program
DX: I73.9 Peripheral vascular disease, unspecified (principal); M79.671 Pain in right foot; M79.672 Pain in left foot; L85.8 Other specified epidermal thickening; L84 Corns and callosities; M21.611 Bunion of right foot; M21.612 Bunion of left foot; M20.41 Other hammer toe(s) (acquired), right foot; M20.42 Other hammer toe(s) (acquired), left foot
CPT/HCPCS: 11057; 99203

== ENCOUNTER → 2025-01-26 08:52 | Outpatient (BNVA) | payer MEDICARE, SELFPAY | PROVIDERS: PCP Internal Medicine; Visit Provider Student in an Organized Health Care Education/Training Program | DX: I73.9 Peripheral vascular disease, unspecified (principal); L85.8 Other specified epidermal thickening; L84 Corns and callosities; M21.611 Bunion of right foot; M21.612 Bunion of left foot; M20.41 Other hammer toe(s) (acquired), right foot; M20.42 Other hammer toe(s) (acquired), left foot | CPT/HCPCS: 11057; 99202 ==

== ENCOUNTER 2025-02-12 08:35 | Outpatient (REF) | payer MEDICARE, SELFPAY ==
--- OUTSIDE RECORDS SUMMARY | 2025-02-12 08:38 | XMS_ITS | Encounter Summary ---
Author Organization [facility] Address [address] [place] [address] Phone Care Team Providers Care Appliance Adjuster Name Role Phone Elidia Chadwick MD Primary Care Provider [phone] Encounter Details Date Type Department Care Team (Late st Contact Info) Description 03/08/2023 Procedure Pass [facility] [address], 5[address], [address] [place] [address] Social History Tobacco Use Types Packs/Day Years [...] as of this encounter Plan of Treatment Upcoming Encounters Date Type Department Care Team (Late st Contact Info) Description 02/16/2025 12:10 PM EST Office Visit [facility] [address] [place] [address] [place] [address] Mariam Hyatt MD [address], [address] [place] [address] [email or web address] documented as of this encounter Visit Diagnoses Not on filedocumented in this encounter Additional Health Concerns Assessment Noted Time PHQ-9 Depression Total Score: 4 03/03/19 24 1:07 PM EST PHQ-2 Depression Total Score: 0 03/03/19 24 1:07 PM EST documented as of this encounter Care Teams Appliance Adjuster Relationship Specialty Start Date End Date Po, Elidia Montes De Oca MD [address] [place] [address] [address] [place] [id number] PCP - General 06/25/14 documented as of this encounter Additional Source Comments The information contained in this document represents components of the legal health record. It is not the complete legal health record.[facility]
--- OUTSIDE RECORDS SUMMARY | 2025-02-12 08:38 | XMS_ITS | Clinical Summary ---
Author Organization [facility] Address [address] [place] [address] Care Team Providers Care Before School Name Role Phone Elidia Chadwick Unavailable Elidia Chadwick Unavailable Radha Castillo NP Unavailable [phone] Iam Vallejo MD Unavailable [phone] Elidia Chadwick Primary Care Provider [phone] Allergies No known active allergies Medications glucosamine sulfate (GLUCOSAMINE) 500 mg Tab tablet oral 08/14/2012 Active citalopram (CeleXA) 10 MG tablet tablet(s) by mouth 10/26/2015 Active calcium citrate-vitamin D3 (CALCIUM CITRATE + D) 315 mg-5 mcg (200 unit) per tablet 1 tablet(s) by mouth once a day 06/17/2012 Active multivitamin,tx -minerals (MULTI-VITAMIN HP/MINERALS) cap capsule oral 08/14/2012 Active sodium,potassiu m,mag sulfates (SUPREP BOWEL PREP KIT) 17.5-3.13-1.6 gram SolR kit Take 1 box by mouth in split-dose fashion as directed by clinic for colonoscopy. 354 mL 04/05/2024 Active sodium,potassiu m,mag sulfates (SUPREP BOWEL PREP KIT) 17.5-3.13-1.6 gram SolR kit Take 1 box by mouth in split-dose fashion as directed by clinic for colonoscopy. 354 mL 05/29/2024 Active Immunizations Immunization Administration Dates Next Due COVID-19 Vaccine (MODERNA) Bivalent Formulation (as of October 2021) 08/03/2022,12/25/2021 COVID-19 Vaccine (MODERNA) 08/03/2022,12/25/2021,05/29/2021,2020,05/19/2020,04/21/2020 Covid-19 vaccine (COMIRNATY) (Pfizer) 12 yrs+ 11/26/2024 Covid-19 vaccine (SPIKEVAX) (Moderna) 12 yrs+ 11/15/2023,05/17/2023,11/28/2022 Family History Medical History Relation Comments Multiple myeloma Father Breast cancer Maternal Grandmother Relation Status Comments Father Maternal Grandmother Social History Tobacco Use Types Packs/Day Years Used Date Smoking Tobacco: Never Assessed Comments No Sex and Gender Information Value Date Recorded Sex Assigned at Female 04/05/2023 7:40 AM EST Legal Sex Female 6:27 PM EDT Gender Identity Female 04/05/2023 7:40 AM EST Sexual Orientation Straight 11/04/2023 10 :48 AM EDT Last Filed Vital Signs Vital Sign Reading Time Taken Comments Blood Pressure 152/85 01/06/2024 1:12 PM EST Pulse 54 01/06/2024 1:12 PM EST Temperature - - Respiratory Rate - - Oxygen Saturation 99% 01/06/2024 1:12 PM EST Inhaled Oxygen Concentration - - Weight 104 kg (230 lb) 02/20/2024 7:40 AM EST Height 167.6 cm (5' 6 ) 02/20/2024 7:40 AM EST Body Mass Index 37.12 02/20/2024 7:40 AM EST Plan of Treatment Upcoming Encounters Date Type Department Care Team (Late st Contact Info) Description 02/22/2025 8:30 AM EST Appointment [facility] [place] Breast Imaging (Mammography) [facility] [address] [place] [address], [address] [place] [address] Elidia Chadwick [address] [place] [address] with Resource Health Maintenance Due Date Last Done Comments Lipid Panel 1952 Depression Screening 1964 Hepatitis C Screening 1970 CT Colonography 1997 FIT 1997 FOBT 1997 Multitarget Stool DNA (Cologuard) 1997 Sigmoidoscopy 1997 Osteoporosis Screening 2017 Medicare Initial AWV [id number] 10/19/2018 Blood Pressure 01/05/2025 01/06/2024 Breast Cancer Screening 02/19/2025 02/19/19 25, 02/07/2022, 02/06/2021, Additional history exists COVID-19 Vaccine (2024- season) 2025 11/26/2024, 11/15/2023, 05/17/2023, Additional history exists Colonoscopy 07/01/2034 07/01/2024 Colorectal Cancer Screening 07/01/2034 DTaP,Tdap,and Td Vaccines (3 - Td or Tdap) 08/10/2034 08/10/2024, 05/23/2017 Zoster Vaccine Completed 12/27/2018, 10/22/2018 Pneumococcal Vaccine: 50+ Years Completed 04/05/2021, 01/01/2018, 12/21/2017, Additional history exists Influenza Vaccine Completed 11/26/2024, , 11/01/2022, Additional history exists Meningococcal B Vaccines Aged Out No longer eligible based on patient's age to complete this topic Meningococcal Vaccines Aged Out No lo nger eligible based on patient's age to complete this topic Procedures Procedure Name Priority Date/Time Associated Diagnosis Comments COLONOSCOPY Routine 07/01/2024 9:33 AM EDT Personal history of colon polyps, unspecified MAMMO SCREENING TOMOSYNTHESIS RIGHT Routine 02/20/2024 7:54 AM EST Visit for screening mammogram from Last 3 Months or Most Recently Relevant to Health Maintenance Results * Colonoscopy (07/01/2024 9:33 AM EDT) Chandni NORWOOD - 07/01/2024 9:33 AM EDT This study was performed at [facility] Endoscopy on 06/30/2024. See linked ProVation result report. us Lenka Rodriguez MD GI PROCEDURE ORDERABLES Final Result [facility] [address] [address] * Mammo Screening Tomosynthesis Right (02/20/2024 7:54 AM EST) Anatomical Region Laterality Modality Breast Right Mammography 02/27/2024 11:2 3 AM EST Impressions 02/27/2024 11:22 AM EST No mammographic evidence of malignancy in the right breast. NOTIFICATION: A summary letter will be sent to the patient with this result. FINAL ASSESSMENT: BI-RADS Category: 2 Benign. Side: Right. Recommendation: Age and risk appropriate screening. Diana Storey MD, electronically signed on Feb 27 2024 11:22AM Narrative 02/27/2024 11:22 AM EST EXAMINATION: RIGHT DIGITAL SCREENING MAMMOGRAM AND 3D DIGITAL BREAST TOMOSYNTHESIS INTERPRETED WITH CAD INDICATION: Screening, right breast. History of left breast cancer status post mastectomy. COMPARISON: Prior mammogram(s) available in PACS. TECHNIQUE: Digital Mammogram and 3D tomosynthesis views were obtained. Computer aided detection was utilized and assisted with interpretation. FINDINGS: Tissue density: B - There are scattered areas of fibroglandular density. Status post reduction mammoplasty. There is no suspicious dominant mass, unexplained architectural distortion or suspicious grouped microcalcifications. Procedure Note Diana Storey MD - 02/27/2024 EXAMINATION: RIGHT DIGITAL SCREENING MAMMOGRAM AND 3D DIGITAL BREAST TOMOSYNTHESISINTERPRETED WITH CAD INDICATION: Screening, right breast. History of left breast cancer status postmastectomy. COMPARISON: Prior mammogram(s) available in PACS. TECHNIQUE: Digital Mammogram and 3D tomosynthesis views were obtained. Computeraided detection was utilized and assisted with interpretation. FINDINGS: Tissue density: B - There are scattered areas of fibroglandular density. Status post reduction mammoplasty. There is no suspicious dominant mass,unexplained architectural distortion or suspicious groupedmicrocalcifications. IMPRESSION: No mammographic evidence of malignancy in the right breast. NOTIFICATION: A summary letter will be sent to the patient with this result. FINAL ASSESSMENT: BI-RADS Category: 2 Benign. Side: Right. Recommendation: Age and risk appropriate screening. Diana Storey MD, electronically signed on Feb 27 2024 11:22AM [facility] MAMMOGRAPHY ORDERABLES Final Result from Last 3 Months or Most Recently Relevant to Health Maintenance Insurance MEDICARE [employer] MEDICARE [employer] Care Teams Before School Relationship Specialty Start Date End Date Elidia Chadwick [address] [address] PCP - Insurance Assigned PCP 02/07/22 Elidia Chadwick [address] [address] PCP - General 05/25/24 Elidia Chadwick [address] [address] 02/07/22 Radha Castillo NP [address] [facility] [address] [place] [address] Nurse Practitioner 05/20/20 Iam Vallejo MD [address] [place] [address] Plastic and Reconstructive Surgery 05/20/20
--- OUTSIDE RECORDS SUMMARY | 2025-02-12 08:38 | XMS_ITS | Encounter Summary ---
Author Organization [facility] Address [address] [place] [address] Care Team Providers Care Power And Recovery Superintendent Name Role Phone Elidia Chadwick Unavailable Elidia Chadwick Unavailable Radha Castillo NP Unavailable [phone] Iam Vallejo MD Unavailable [phone] Elidia Chadwick Primary Care Provider [phone] Encounter Details Date Type Department Care Team (Late st Contact Info) Description 06/30/2024 Lab Requisition [facility] Lab [address], [address] [place] [id number] Emily Sharma MD [address] [place] [id number] Personal history of colon polyps, unspecified; Benign neoplasm of ascending colon Social History Tobacco Use Types Packs/Day Years Used Date Smoking Tobacco: Never Assessed Comments No Sex and Gender Information Value Date Recorded Sex Assigned at Female 04/05/2023 7:40 AM EST Legal Sex Female 6:27 PM EDT Gender Identity Female 04/05/2023 7:40 AM EST Sexual Orientation Straight 11/04/2023 10 :48 AM EDT documented as of this encounter Plan of Treatment Upcoming Encounters Date Type Department Care Team (Late st Contact Info) Description 02/22/2025 8:30 AM EST Appointment [facility] Breast Imaging (Mammography) [facility] [address] [facility], 4th [place] [address] [address] with Resource documented as of this encounter Procedures Procedure Name Priority Date/Time Associated Diagnosis Comments SURGICAL PATHOLOGY TISSUE EXAM Routine 06/30/2024 8:45 AM EDT Personal history of colon polyps, unspecified Benign neoplasm of ascending colon documented in this encounter Results * Surgical Pathology Tissue Exam (06/30/2024 8:45 AM EDT) Case Report Surgical Pathology Report Case: [id number] Authorizing Provider: Emily Sharma MD Collected: 06/30/2024 08:45 AM Ordering Location: [facility] Lab Received: 06/30/2024 05:04 PM Pathologist: Bailey Allen MD Specimens: A) - Large Intestine, Right/Ascending Colon, ascending polyp B) - Colon, random colon 07/01/2024 5:56 PM EDT [facility] Final Diagnosis A. Large Intestine, ascending, polyp: polypectomy: - Tubular adenoma. B. Colon, random, biopsy: - Colonic mucosa within normal limits. 07/01/2024 5:56 PM EDT [facility] at 1756 EDT Clinical Information Diagnosis: Z86.0100-Personal history of colon polyps, unspecified D12.2-Benign neoplasm of ascending colon 07/01/2024 5:56 PM EDT [facility] Gross Description A. Large Intestine, Right/Ascending Colon, ascending polyp The specimen is received in one formalin-filled container, labeled with the patient's name, medical record number and additionally labeled ascending polyp . It consists of 1 tissue fragments measuring up to 0.7 cm, entirely submitted in cassette A1. B. Colon, random colon The specimen is received in one formalin-filled container, labeled with the patient's name, medical record number and additionally labeled random colon BX . It consists of 4 tissue fragments measuring up to 0.4 cm, entirely submitted in cassette B1. 07/01/2024 5:56 PM EDT [facility] Methods and Disclaimers By his/her signature, the senior physician certifies that he/she personally conducted a gross and/or microscopic examination of the described specimen(s) and rendered or confirmed the diagnosis(es) related thereto. Slides reviewed at [facility] - Anatomic Path[facility] [address] [facility] [address] Immunohistochemistry test(s), if applicable, were developed and their performance characteristics were determined by the Department of Pathology at [facility], [place], [place]. They have not been cleared or approved by the U.S. Food and Drug Administration. The FDA has determined that such clearance or approval is not necessary. These tests are used for clinical purposes. They should not be regarded as investigational or for research. This laboratory is certified under the Clinical Laboratory Improvement Amendments of 1988 (CLIA-88) as qualified to perform high complexity clinical laboratory testing. Unless otherwise specified, all histochemical and immunohistochemical controls are adequate. 07/01/2024 5:56 PM EDT [facility] Tissue COLON STRUCTURE / Unknown 06/30/2024 8:45 AM EDT 06/30/2024 5:04 PM EDT Tissue specimen (specimen) COLON STRUCTURE / Unknown 06/30/2024 8:45 AM EDT 06/30/2024 5:04 PM EDT us Emily Sharma MD PATHOLOGY/CYTOLOGY ORDERABL ES Final Result [facility] [address] [place] [address], documented in this encounter Visit Diagnoses Diagnosis Personal history of colon polyps, unspecified Benign neoplasm of ascending colon documented in this encounter Care Teams Power And Recovery Superintendent Relationship Specialty Start Date End Date Elidia Chadwick [address] [place] [id number] PCP - Insurance Assigned PCP 02/07/22 Elidia Chadwick [address] [address] PCP - General 05/25/24 Elidia Chadwick [address] [address] 02/07/22 Radha Castillo NP [address] [facility] [address] [place] [address] Nurse Practitioner 05/20/20 Iam Vallejo MD [address] [place] [address] Plastic and Reconstructive Surgery 05/20/20 documented as of this encounter
--- OUTSIDE RECORDS SUMMARY | 2025-02-12 08:38 | XMS_ITS | Encounter Summary ---
Author Organization [facility] Address [address] [place] [address] Phone Care Team Providers Care Pyrotechnics Press Tender Name Role Phone Elidia Chadwick MD Primary Care Provider [phone] Encounter Details Date Type Department Care Team (Late st Contact Info) Description 03/08/2023 Procedure Pass MRI, [facility] [place] [address] [facility], [address] [place], [place] [id number] Social History Tobacco Use Types Packs/Day Years [...] Description 02/16/2025 12:10 PM EST Office Visit [facility] Obstetrics and Gynecology Clinic [address] [place] [address] Mariam Hyatt MD [address] [facility], [address] [place] [address] [email or web address] documented as of this encounter Visit Diagnoses Not on filedocumented in this encounter Additional Health Concerns Assessment Noted Time PHQ-9 Depression Total Score: 4 03/03/19 24 1:07 PM EST PHQ-2 Depression Total Score: 0 03/03/19 24 1:07 PM EST documented as of this encounter Care Teams Pyrotechnics Press Tender Relationship Specialty Start Date End Date Po, Elidia Montes De Oca MD [address] [place] [address] [address] [place] [address] PCP - General 06/25/14 documented as of this encounter Additional Source Comments The information contained in this document represents components of the legal health record. It is not the complete legal health record.[facility]
--- OUTSIDE RECORDS SUMMARY | 2025-02-12 08:38 | XMS_ITS | Clinical Summary ---
Author Organization [facility] Address [facility] [place] [address] [address] Phone Care Team Providers Care Market Gardener Name Role Phone Elidia Chadwick MD Primary Care Provider [phone] Allergies Active Allergy Reactions Criticality Noted Date [...] 03/08/2023 9:57 AM EST Plan of Treatment Upcoming Encounters Date Type Department Care Team (Late st Contact Info) Description 02/16/2025 12:10 PM EST Office Visit [facility] Obstetrics and Gynecology Clinic [address] [place] [address] Mariam Hyatt MD [address] [facility], [address] [place] [address] [email or web address] Health Maintenance Due Date Last Done Comments LIPID PANEL 1950 HEPATITIS C SCREENING 1970 COLOGUARD 1997 COLONOSCOPY 1997 COLORECTAL CANCER SCREENING 1997 FIT TEST 1997 FOBT 1997 SIGMOIDOSCOPY 1997 VIRTUAL COLONOSCOPY 1997 OSTEOPOROSIS SCREENING INITIAL (ONE-TIME) 2017 MAMMOGRAM 02/08/2024 02/07/2022, 01/19, 02/06/2021, Additional history exists DEPRESSION SCREENING 03/03/2024 03/03/2023, 03/03/19 24 INFLUENZA VACCINE (#1) 2024 3, 12/05/2020, 10/24/2019, Additional history exists COVID-19 VACCINE (2024- season) 2024 11/28/2022, 08/03/2022, 12/25/2021, Additional history [...] file Insurance MEDICARE PART A & B [email or web address] MEDEX SUPPLEMENT MEDICARE PART A & B [employer] MEDEX SUPPLEMENT MEDICARE PART A & B [employer] SUPPLEMENT MEDICARE PART A & B [employer] SUPPLEMENT MEDICARE PART A & B [employer] MEDEX SUPPLEMENT MEDICARE PART A & B [facility] MEDEX SUPPLEMENT Care Teams Market Gardener Relationship Specialty Start Date End Date Elidia Chadwick MD [address] [place] [id number] PCP - General 06/25/14 Additional Source Comments The information contained in this document represents components of the legal health record. It is not the complete legal health record.[facility]
[2025-02-12 08:54] LABS: MANUAL DIFF FLAG NO
[2025-02-12 09:32] LABS: Hematocrit 39.1 % (37.0-47.0); Hemoglobin 12.6 g/dl (12.0-16.0); Imm Gran Abs Auto 0.01 X10*3/uL (0.00-0.03); Imm Gran Pct Auto 0.2 % (0.0-0.4); Lymphocytes Absolute Auto 1.6 X10*3/uL (1.2-4.9); Mean Corpuscular HGB Conc 32.2 g/dl (31.0-35.0); Mean Corpuscular Hemoglobin 27.8 pg (27.0-33.0); Mean Corpuscular Volume 86.1 fL (80.0-98.0); NRBC Abs Auto 0.000 X10*3/uL (0.0-0.012); NRBC Pct Auto 0.0 /100WBC (0.0-0.2); Platelet Count 286 X10*3/uL (160-400); Red Blood Count 4.54 X10*6/uL (4.20-5.50); Reticulocytes Absolute 0.054 X10*6/uL (0.026-0.095); White Blood Count 5.5 X10*3/uL (4.8-10.8)
[2025-02-12 10:10] LABS: Alanine Aminotransferase 16 U/L (0-31); Albumin Level 3.9 g/dL (3.5-5.0); Alkaline Phosphatase 84 U/L (39-117); Anion Gap 11 (12-20); Aspartate Amino Transferase 22 U/L (5-31); Blood Urea Nitrogen 20 mg/dL (9-16); Calcium 9.4 mg/dL (8.4-10.2); Carbon Dioxide 27 mmol/L (22-29); Chloride 108 mmol/L (96-108); Cholesterol 197 mg/dL (<200); Estimated Glomerular Filt Rate 59; HDL Cholesterol 59 mg/dL (>40); Iron 82 mcg/dL (30-160); Percent Iron Saturation 39 % (15-50); Potassium 4.0 mmol/L (3.3-5.1); Sodium 142 mmol/L (135-145); Total Iron Binding Capacity 208 mcg/dL (228-428); Total Protein 7.3 g/dL (6.5-8.0); Triglycerides 64 mg/dL (<150); Unsaturated Iron Binding 126 ug/dL
[2025-02-12 10:34] LABS: Ferritin 332 ng/mL (10-250); Free T4 (Free Thyroxine) 0.89 ng/dL (0.71-1.85); Thyroid Stimulating Hormone 1.90 uIU/mL (0.32-4.0)
[2025-02-12 10:36] LABS: Folate 13.2 ng/mL (> or = 4.0); Vitamin B12 675 pg/mL (200-900)
[2025-02-12 14:34] LABS: Appearance Urine Clear; Glucose Urine UA Negative (Negative); PH 5.5 (5.0-9.0); Specific Gravity - Urine 1.015 (1.005-1.025); UMIC TRIGGER UACC YES
[2025-02-12 14:36] LABS: UACC Culture Trigger YES
== END 2025-02-12 08:36 | disposition home or self-care (01) ==
LOC: HO.LAB 08:35
PROVIDERS: PCP Internal Medicine; Visit Provider Internal Medicine
DX: R73.02 Impaired glucose tolerance (oral) (principal); R30.0 Dysuria; E78.00 Pure hypercholesterolemia, unspecified; Z13.0 Encounter for screening for diseases of the blood and blood-forming organs and certain disorders involving the immune mechanism; Z13.21 Encounter for screening for nutritional disorder
CPT/HCPCS: 36415; 80053; 80061; 81001; 82306; 82607; 82728; 82746; 83036; 83540; 84439; 84443; 85025; 85045; 87086; 87088; 87186